=== PATIENT | male | born 1940 | race Caucasian/White ===

== ENCOUNTER 2016-08-20 19:11 | Inpatient (IN) | payer MEDICARE, OTHER ==
[~2016-08-20] VITALS: Ht 152.4 cm; Wt 81.6 kg
[~2016-08-20 19:11] MED LIST: AMIO200T; AMIO200T2 PO; ASPI-807 PO; ATOR20TA PO; AZIT250T6; BUDE10.2; DIVA250T4 PO; DIVA500T2 PO; DOCU-270 PO; DUTA0.5C PO; GABA-534 PO; HYDR-548 PO; LAMO25TA PO; LORA10CA; LORA1TAB PO; LORA1TAB82; LOSA50TA3; METO25TA6 PO; MOME17SP; MOME17SP NS; MORP60TA34 PO; MUPI22OI7; PANT40SU; QUET50TA PO; RIVA10TA; SPIR25TA4 PO; TAMS-12; TAMS0.4C34 PO; TOLT4CAP PO
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
--- NOTE | 2016-08-20 19:38 | NUR ---
STARTED A SALINE LOCK G20 ON THE RIGHT HAND, BLOOD DRAWN AND SENT TO LAB.
[2016-08-20 19:56] LABS: BASOPHILS # (AUTO) 0.4 /CMM (0.0-0.2); BASOPHILS % (AUTO) 2.8 % (0.0-2.0); EOSINOPHILS # (AUTO) 0.2 /CMM (0.0-0.7); EOSINOPHILS % (AUTO) 1.8 % (0.0-6.0); HEMATOCRIT 42 % (39-51); HEMOGLOBIN 14.2 g/dL (13.5-17.5); LYMPHOCYTES # (AUTO) 1.9 /CMM (0.8-4.8); MEAN CORPUSCULAR HEMOGLOBIN 33 PG (26.0-33.0); MEAN CORPUSCULAR HGB CONC 34 g/dl (31.0-36.0); MEAN CORPUSCULAR VOLUME 98 fL (80-96); MONOCYTES # (AUTO) 1.7 /CMM (0.1-1.30); MONOCYTES % (AUTO) 12.3 % (2.0-12.0); NEUTROPHILS # (AUTO) 9.7 /CMM (1.8-8.9); NEUTROPHILS % (AUTO) 69.1 % (43.0-81.0); PLATELET COUNT (AUTO) 257 /CMM (150-450); RDW COEFFICIENT OF VARIATION 12.8 (11.5-15.0); RED BLOOD CELL COUNT(AUTO) 4.29 MIL/uL (4.5-6.0); WHITE BLOOD COUNT (AUTO) 13.9 K/uL (4.3-11.0)
--- NOTE | 2016-08-20 19:57 | NUR ---
CALLED NURSING SUP. FOR TELE BED
[2016-08-20 20:07] LABS: CALCIUM, SERUM 9.5 mg/dL (8.5-10.1); CARBON DIOXIDE 25 mmol/L (21-32); CHLORIDE 104 mmol/L (98-107); CREATININE 1.4 mg/dL (0.6-1.3); GLUCOSE 85 mg/dL (74-106); POTASSIUM 4.7 mmol/L (3.5-5.1); SODIUM SERUM 137 mmol/L (136-145); UREA NITROGEN, BLOOD 23 mg/dL (7-18)
[2016-08-20 20:16] LABS: TROPONIN I < 0.017 ng/mL (0.00-0.056)
[2016-08-20 20:28] LABS: INR 1.08 (0.87-1.13); PROTHROMBIN TIME 11.6 SECS (9.5-12.7)
--- NOTE | 2016-08-20 21:15 | NUR ---
EPIC PAGED, BRANCH LENDING OFFICER
--- NOTE | 2016-08-20 21:41 | NUR ---
Report given to Elizabeth WISDOM for tele admission and continuity of care.
[2016-08-20] MEDS ORDERED: IV NS 0.9% 1,000 ML IV PRN (22:09)
[2016-08-20 22:15] VITALS: BP 199/109
--- NOTE | 2016-08-20 22:15 | NUR ---
RN NOTES: ADMITTED FROM ER VIA GURNEY ACCOMPANIED BY RN WITH DX:CHEST PAIN,PATIENT IS ALERT AND COHERENT WITH PERIODS OF FORGETFULNESS,PER ENDORSEMENT HE RECEIVED 3 DOSE OF NITROGLYCERINE PER PARAMEDICS WHO TRANSPORTED HIM TO THE HOSPITAL FROM [facility],WHEN HE ARRIVED IN ER HE WAS RELIEVED WITH CHEST PAIN, TROPONIN WAS NEGATIVE,IV CANNULA IN SITE RIGHT HAND G#20,ON TELEMETRY, FINANCE ASSISTANT IN PLACE, SINUS RHYTHM RATE-75,BODY ASSESSMENT DONE,NOTED MULTIPLE BROWN PIGMENTATION AND DISCOLORATION ON BUE AND BLE, HE HAS OLD SURGICAL SCAR ON THE LEFT FEMORAL AREA,UNABLE TO ASSESS BUTTOCKS AND FRONTAL AREA HE REFUSE TO LOWER DOWN HIS PANTS.ORIENTED TO UNIT AND STAFF,FALL, AFETY AND ASPIRATION PRECAUTION OBSERVE, CALL LIGHT WITH IN REACH.BED LOW AND LOCKED, SIDE RAILS UP X3.
--- NOTE | 2016-08-20 22:22 | NUR ---
Transported to [place] [id number] [facility] bed under als protocol, no incident noted. Bita at bedside.
[2016-08-20 22:30] VITALS: BP 199/109
[2016-08-20] MEDS ORDERED: hydrALAZINE HCL 25 MG TABLET PO PRN (22:30)
[2016-08-20] MEDS ORDERED: ACETAMINOPHEN 325 MG TABLET PO PRN (22:30)
[2016-08-20] MEDS ORDERED: MAGNESIUM HYDROXIDE 30 ML UDC PO PRN (22:30)
[2016-08-20] MEDS ORDERED: Z GUARD REMEDY 2 OZ OINT TP PRN (22:30)
[2016-08-20] MEDS ORDERED: LORAZEPAM 1 MG TABLET PO PRN (22:30)
[2016-08-20] MEDS ORDERED: ONDANSETRON HCL/PF 4 MG/2 ML VIAL IVP PRN (22:30)
[2016-08-20] MEDS ORDERED: MAG HYDROX/AL HYDROX/SIMETH 30 ML UDC PO PRN (22:30)
--- NOTE | 2016-08-20 22:50 | NUR ---
RN NOTES: PATIENT IS ON O2 AT 2L/MIN SPO2-97%, HE COMPLAINED OF LOCALIZED CHEST PAIN, NOT RADIATING TO ANY PARTS OF THE BODY, 10/10, HE IS GRIMACING AND LOOKS VERY RESTLESS, NO SOB BUT HE COMPLAINED OF PRICKING LIKE PAIN,BP-199/109 KS-79, PRN MEDICATION FOR BLOOD PRESSURE GIVEN AT 2256 AND PRN FOR PAIN WAS GIVEN 2305.KEPT IN COMFORTABLE POSITION,RE-ASSURED AND NON PHARMACOLOGIC INTERVENTION RENDERED, DEEP BREATHING, DIM LIGHT AND SUGGEST TO HIM RELAX,PROVIDED URINAL IN THE BED SIDE(URINEX1),VERY COOPERATIVE,CALL LIGHT WITH IN REACH.
[2016-08-20] MEDS ORDERED: MORPHINE SULFATE INJ 2 MG/ML DISP.SYRIN ONE (22:51)
[2016-08-20] MEDS ORDERED: IV SET PRIMARY 1 EA INFUS.SET MC ONE ×2 (22:58→23:06)
[2016-08-20] MEDS: MORPHINE SULFATE INJ 2 MG/ML DISP.SYRIN IV PRN (23:05)
--- NOTE | 2016-08-20 23:10 | NUR ---
RN NOTES: 2305 IVF OF NS AT 75 ML/HR STARTED VIA INFUSION PUMP.
--- NOTE | 2016-08-20 23:40 | NUR ---
RN NOTES: AFTER MORPHINE INJECTION PATIENT VERBALIZED HE FEELS BETTER AND PAIN WAS LESSEN 3/10,HE LOOKS MORE RELAX,TAKING A NAP,KEEP ON COMFORTABLE POSITION, NON PHARMACOLOGICAL INTERVENTION RENDERED.
[2016-08-21] VITALS: BP 155/78
--- NOTE | 2016-08-21 | NUR ---
RN NOTES: PATIENT WAS ABLE TO REST AND SLEEP, PAIN SUBSIDE, V/S CHECKED BP-155/78 NH-63.WILL CONTINUE TO MONITOR ON CLOSE VISUAL CHECK, CALL LIGHT WITH IN REACH.
[2016-08-21] MEDS ORDERED: hydrALAZINE HCL 25 MG TABLET PO PRN (01:00)
[2016-08-21 04:00] VITALS: BP 144/67
[2016-08-21] MEDS ORDERED: HYDROCODONE/APAP 5/325MG 1 EACH TABLET ONE (04:30)
[2016-08-21] MEDS: HYDROCODONE/APAP 5/325MG 1 EACH TABLET PO PRN (04:35)
[2016-08-21 04:37] LABS: EOSINOPHILS # (AUTO) 0.2 /CMM (0.0-0.7); EOSINOPHILS % (AUTO) 1.7 % (0.0-6.0); HEMATOCRIT 39 % (39-51); HEMOGLOBIN 12.9 g/dL (13.5-17.5); LYMPHOCYTES # (AUTO) 1.4 /CMM (0.8-4.8); LYMPHOCYTES % (AUTO) 9.7 % (20.0-44.0); MEAN CORPUSCULAR HEMOGLOBIN 33 PG (26.0-33.0); MEAN CORPUSCULAR HGB CONC 33 g/dl (31.0-36.0); MEAN CORPUSCULAR VOLUME 98 fL (80-96); MONOCYTES # (AUTO) 2.2 /CMM (0.1-1.30); MONOCYTES % (AUTO) 15.9 % (2.0-12.0); NEUTROPHILS # (AUTO) 10.2 /CMM (1.8-8.9); NEUTROPHILS % (AUTO) 72.7 % (43.0-81.0); PLATELET COUNT (AUTO) 223 /CMM (150-450); RDW COEFFICIENT OF VARIATION 13.8 (11.5-15.0); RED BLOOD CELL COUNT(AUTO) 3.99 MIL/uL (4.5-6.0)
--- NOTE | 2016-08-21 04:40 | NUR ---
RN NOTES: AWAKE, ASSISTED HE USE THE URINAL, COMPLAINED OF BACK PAIN 11/21, HE VERBALIZED HE HAS INTERMITTENT BACK PAIN,BP-144/67 ME-57 RR-18 T-97.6 SPO2-94%,AGREED TO HAVE NORCO PRN FOR PAIN,GIVEN.CALL LIGHT WITH IN REACH.PUT COMFORTABLE IN BED. Addendum: 08/21/16 at 6508 by SUHAS MAY RN NORCO GIVEN AT 0435AM.
[2016-08-21 04:44] LABS: CALCIUM, SERUM 8.7 mg/dL (8.5-10.1); CREATININE 1.3 mg/dL (0.6-1.3); MAGNESIUM 1.9 mg/dL (1.8-2.4); PHOSPHORUS 3.4 mg/dL (2.5-4.9); POTASSIUM 4.5 mmol/L (3.5-5.1)
[2016-08-21 05:47] LABS: EOSINOPHILS % (MANUAL) 4 % (0-4); LYMPHOCYTES % (MANUAL) 13 % (16-48); MONOCYTES % (MANUAL) 16 % (0-11.0); NEUTROPHILS % (MANUAL) 67 (42-76)
[2016-08-21 05:48] LABS: PLATELET ESTIMATE ADEQUATE
--- NOTE | 2016-08-21 06:16 | NUR ---
RN NOTES: 535AM PATIENT WAS IN DEEP SLEEP, NO CALLS MADE AFTER HE RECEIVED NORCO,BLOOD RESULT IN,CALLED EPIC DOUGH RAISER AT 0538, THEN LEFT MESSAGE AT 555AM.AWAITING FOR RETURN CALL.ON CLOSE MONITORING.CALL LIGHT WITHIN EASY REACH.
--- NOTE | 2016-08-21 06:40 | NUR ---
RN NOTES: CALLS AND NEEDS ATTENDED, NOT IN PAIN OR ANY SIGN OF RESPIRATORY DISTRESS,BED LOW AND LOCKED, CALL LIGHT WITHIN REACH.ENDORSED ASLEEP TO MORNING SHIFT FOR CONTINUITY OF CARE.
--- NOTE | 2016-08-21 07:30 | NUR ---
RN OPENING NOTES TELE RECEIVED REPORT FROM BLOCK CHOPPER HAND NURSE. PATIENT IS IN BED. BED IN LOW POSITION, LOCKED AND 2 SIDE RAILS ARE UP. NO SIGNS OR SYMPTOMS OF DISTRESS. IV SITE IS INTACT AND POTENT. WILL CONTINUE TO MONITOR AND ASSESS PATIENT THROUGHOUT MY SHIFT.
[2016-08-21 08:00] VITALS: BP 144/72
[2016-08-21 09:05] LABS: THYROID STIMULATING HORMONE 0.875 uIU/mL (0.358-3.74)
[2016-08-21] MEDS ORDERED: ALBUTEROL FS 2.5 MG/3 ML VIAL.NEB NEB PRN (10:00)
[2016-08-21] MEDS: MORPHINE SULFATE INJ 2 MG/ML DISP.SYRIN IV PRN ×2 (10:54→17:30)
[2016-08-21] MEDS: DIVALPROEX SODIUM 250 MG TABLET.DR PO SCH ×3 (10:58→17:23)
[2016-08-21] MEDS: LOSARTAN POTASSIUM 50 MG TABLET PO SCH (10:58)
[2016-08-21] MEDS: GABAPENTIN 300 MG CAPSULE PO SCH ×2 (10:58→17:22)
[2016-08-21] MEDS: DOCUSATE SODIUM 100 MG CAPSULE PO SCH ×2 (10:59→17:23)
[2016-08-21] MEDS: METOPROLOL TARTRATE 25 MG TABLET PO SCH ×2 (11:00→17:23)
[2016-08-21] MEDS: PANTOPRAZOLE 40 MG TABLET.DR PO SCH (11:00)
[2016-08-21] MEDS: AMIODARONE HCL 200 MG TABLET PO SCH (11:00)
[2016-08-21] MEDS: methylPREDNISolone SOD SUCC 125 MG/2ML VIAL IV SCH ×4 (11:01→20:40)
[2016-08-21] MEDS: RIVAROXABAN 10 MG TABLET PO SCH (11:05)
[2016-08-21] MEDS: LamoTRIgine 25 MG TABLET PO SCH ×2 (11:29→17:23)
[2016-08-21] MEDS: MORPHINE SULFATE SR 15 MG TABLET.SA PO SCH ×2 (11:29→20:40)
[2016-08-21] MEDS: MOMETASONE FUROATE NASAL SUSP 17 GM BOTTLE SCH (13:23)
[2016-08-21] MEDS: ALBUTEROL FS 2.5 MG/3 ML VIAL.NEB NEB SCH ×2 (15:30→23:18)
[2016-08-21 16:00] VITALS: BP 166/82
--- NOTE | 2016-08-21 17:34 | NUR ---
RN NOTES MORPHINE ADMINISTERED BLOOD PRESSURE 166/82
--- NOTE | 2016-08-21 18:49 | NUR ---
RN CLOSING NOTES PATIENT IS IN BED, ALERT AND ORIENTED TO NAME, PLACE. BED IN LOW POSITION, LOCKED AND TWO SIDE RAILS ARE UP. NO SIGNS OR SYMPTOMS OF DISTRESS. PATIENT'S PAIN LEVEL WAS CONTROLLED WITH MORPHINE AND NORCO. IV SITE IS POTENT AND INTACT. WILL ENDORSE TO CHARGEBACK ANALYST NURSE.
--- NOTE | 2016-08-21 19:55 | NUR ---
LASTEX THREAD WINDER INITIAL NOTES: RECEIVED REPORT FROM ANDRE WISDOM. PT ON BED, AWAKE, A/O X1-2, DIRECTIONAL, COOPERATIVE CALM AT THIS TIME. ON 2L VIA NC, RESPIRATION EVEN AND UNLABORED. PT C/O 4/10 PAIN GENERALIZED. PT EASILY GETS AGITATED WHEN HE CANNOT FIND HIS URINAL OR OXYGEN NOT IN USE. PT ON TELE CURRENTLY SINUS IRVING WITH BBB INVERTED T WAVE HR 58, PER PIPE MAKER DURING DAY SHIFT IT WENT DOWN TO LOW 30'S. PT ALSO REFUSING SCD. EDUCATION PROVIDED TO THE PT. RIGHT HAND G 20 PATENT AND FLUSHING WELL, ON HL. SAFETY PRECAUTIONS FOR FALL INITIATED CALL LIGHT IN REACH. WILL CONTINUE TO MONITOR
[2016-08-21 20:00] VITALS: BP 159/84
--- NOTE | 2016-08-21 21:00 | NUR ---
television and radio repairer notes: pt refused sacral check, stated he doesnt have any wound on his bottom and private area. educate pt regarding importance of skin assessment, pt refused.
[2016-08-21] MEDS: TAMSULOSIN 0.4 MG CAP.SR.24H PO SCH (21:14)
[2016-08-21] MEDS: TOLTERODINE 2 MG CAP.SR PO SCH (21:15)
[2016-08-21] MEDS: QUETIAPINE FUMARATE 25 MG TABLET PO SCH (21:15)
[2016-08-21] MEDS: ATORVASTATIN 10 MG TABLET PO SCH (21:15)
[2016-08-21] MEDS: DUTASTERIDE (0.5 MG) 0.5 MG CAPSULE PO SCH (21:15)
[2016-08-22] VITALS (8 sets, daily range): BP systolic 95–193; BP diastolic 44–88
--- NOTE | 2016-08-22 01:37 | NUR ---
telemedicine physician notes: seen pt sleeping at this time, appears comfortable, no distress noted,
[2016-08-22] MEDS: MORPHINE SULFATE INJ 2 MG/ML DISP.SYRIN IV PRN ×3 (02:18→12:17)
--- NOTE | 2016-08-22 02:18 | NUR ---
television station manager notes: pt c/o back pain 12/22 requesting for his morphine, prn morphine 2mg ivp administered to the pt at this time, educate pt regarding medication side effect, will continue to monitor and reassess
--- NOTE | 2016-08-22 04:00 | NUR ---
telecommunications administrator notes: pt refused 0400am vs, education provided to the pt
--- NOTE | 2016-08-22 04:03 | NUR ---
network/telecom engineer notes: seen pt sleeping, not in any distress, appears comfortable
--- NOTE | 2016-08-22 06:45 | NUR ---
television antenna installer closing notes: pt on bed, sleeping, arouses to tactile stimuli, remains on 2l via nc, no sob noted. denies any chest pain or discomfort at this time. remains on sinus erum with bbb and inverted T wave hr 57, per data communications technician lowest 45. right hand iv access remains patent and flushing well, on hl. vs remains stable, needs attended. safety precaution for fall remains engaged, call light in reach. will endorse to day rn for flavia.
[2016-08-22 06:48] LABS: HEMATOCRIT 42 % (39-51); HEMOGLOBIN 13.9 g/dL (13.5-17.5); LYMPHOCYTES # (AUTO) 0.8 /CMM (0.8-4.8); LYMPHOCYTES % (AUTO) 3.8 % (20.0-44.0); MEAN CORPUSCULAR HEMOGLOBIN 33 PG (26.0-33.0); MEAN CORPUSCULAR HGB CONC 33 g/dl (31.0-36.0); MEAN CORPUSCULAR VOLUME 99 fL (80-96); MONOCYTES # (AUTO) 0.6 /CMM (0.1-1.30); MONOCYTES % (AUTO) 2.9 % (2.0-12.0); NEUTROPHILS # (AUTO) 20.7 /CMM (1.8-8.9); NEUTROPHILS % (AUTO) 93.3 % (43.0-81.0); PLATELET COUNT (AUTO) 233 /CMM (150-450); RDW COEFFICIENT OF VARIATION 14.1 (11.5-15.0); RED BLOOD CELL COUNT(AUTO) 4.19 MIL/uL (4.5-6.0); WHITE BLOOD COUNT (AUTO) 22.2 K/uL (4.3-11.0)
[2016-08-22 07:14] LABS: ALBUMIN 3.1 g/dL (3.4-5.0); BILIRUBIN,TOTAL 0.4 mg/dL (0.2-1.0); CALCIUM, SERUM 9.5 mg/dL (8.5-10.1); CREATININE 1.2 mg/dL (0.6-1.3); PHOSPHORUS 3.5 mg/dL (2.5-4.9); POTASSIUM 4.3 mmol/L (3.5-5.1); TOTAL PROTEIN, SERUM 6.6 g/dL (6.4-8.2)
--- NOTE | 2016-08-22 07:38 | NUR ---
FINANCIAL HEALTH COUNSELOR NOTES Patient in bed, sleeping but easily arousable, no distress noted, no s/sx of pain or discomfort at this time, breathing even and unlabored, no sob, safety measures in placed, needs anticipated and met, call light within reach, will continue to monitor.
[2016-08-22] MEDS: METOPROLOL TARTRATE 25 MG TABLET PO SCH ×2 (08:10→16:34)
[2016-08-22] MEDS: AMIODARONE HCL 200 MG TABLET PO SCH (08:11)
[2016-08-22] MEDS: LOSARTAN POTASSIUM 50 MG TABLET PO SCH (08:13)
[2016-08-22] MEDS: methylPREDNISolone SOD SUCC 125 MG/2ML VIAL IV SCH ×4 (08:14→20:57)
[2016-08-22] MEDS: DOCUSATE SODIUM 100 MG CAPSULE PO SCH ×2 (08:15→16:33)
[2016-08-22] MEDS: PANTOPRAZOLE 40 MG TABLET.DR PO SCH (08:15)
[2016-08-22] MEDS: LamoTRIgine 25 MG TABLET PO SCH ×2 (08:15→16:35)
[2016-08-22] MEDS: MORPHINE SULFATE SR 15 MG TABLET.SA PO SCH ×2 (08:15→20:58)
[2016-08-22] MEDS: DIVALPROEX SODIUM 250 MG TABLET.DR PO SCH ×3 (08:15→16:35)
[2016-08-22] MEDS: GABAPENTIN 300 MG CAPSULE PO SCH ×2 (08:15→16:34)
[2016-08-22 08:17] LABS: TROPONIN I 0.122 ng/mL (0.00-0.056)
[2016-08-22] MEDS: ALBUTEROL FS 2.5 MG/3 ML VIAL.NEB NEB SCH ×2 (08:22→16:20)
[2016-08-22] MEDS: RIVAROXABAN 10 MG TABLET PO SCH (08:22)
--- NOTE | 2016-08-22 08:34 | NUR ---
SOCIAL WELFARE RESEARCH WORKER NOTES Patient complained of chest pain p.s. 02/21 radiates to left arm, described as sharp deep pain, at 0805, bp 193/88 pulse 102 spo2 100% respiration 22, all due meds given as ordered, morphine iv administered. RT came and administered breathing treatment, rechecked bp now at 149/107, pulse 97, spo2 93%. Dr. Bowman came and assessed the patient and received new order for EKG STAT. order noted and carried out. Patient stated pain feels a little bit better, will continue to monitor.
--- NOTE | 2016-08-22 08:40 | NUR ---
EKG REPORTED TO NURSE(GENTRY) AT THIS TIME.
--- NOTE | 2016-08-22 08:43 | NUR ---
SLOT MACHINE DEPARTMENT FLOORPERSON NOTES Dr. Mc reviewed EKG result, compared from previous EKG, no new order at this time.
[2016-08-22] MEDS: MOMETASONE FUROATE NASAL SUSP 17 GM BOTTLE SCH (08:52)
[2016-08-22] MEDS ORDERED: ASPIRIN 81 MG TAB.CHEW PO SCH (09:00)
--- NOTE | 2016-08-22 09:50 | NUR ---
RN MS NOTES Patient seen and examined by Dr. Mc with new orders. Orders noted and carried out. Reassessed patient's pain 2/10, blood pressure 150/75. No further complaint of chest pain at this time, will continue to monitor.
[2016-08-22] MEDS: hydrALAZINE HCL 50 MG TABLET PO SCH ×3 (10:29→16:33)
[2016-08-22] MEDS: ISOSORBIDE DINITRATE (20MG) 20 MG TABLET PO SCH ×2 (10:29→16:34)
[2016-08-22] MEDS ORDERED: NITROGLYCERIN PACKET 1 GM PACKET TOP SCH (12:00)
[2016-08-22] MEDS: NITROGLYCERIN 30 GM TUBE TP SCH ×3 (12:00→23:47)
--- NOTE | 2016-08-22 14:35 | NUR ---
RN MS NOTES Patient seen by Dr. Samuel, vital signs stable, no further complaint of chest pain, assessed by MD and stated he he has pain on his legs and back mostly. Received new orders from Dr. Samuel, order noted and carried out.
--- NOTE | 2016-08-22 19:01 | NUR ---
RN MS NOTES Patient in bed, alert and oriented, no distress noted, no further complaint of chest pain, vital signs stable, safety measures in placed, call light withinr each, will endorse to film processing shift supervisor for flavia.
[2016-08-22] MEDS: DUTASTERIDE (0.5 MG) 0.5 MG CAPSULE PO SCH (20:58)
[2016-08-22] MEDS: TAMSULOSIN 0.4 MG CAP.SR.24H PO SCH (20:58)
[2016-08-22] MEDS: TOLTERODINE 2 MG CAP.SR PO SCH (20:58)
[2016-08-22] MEDS: QUETIAPINE FUMARATE 25 MG TABLET PO SCH (20:59)
[2016-08-22] MEDS: ATORVASTATIN 10 MG TABLET PO SCH (21:00)
[2016-08-23] MEDS: ALBUTEROL FS 2.5 MG/3 ML VIAL.NEB NEB SCH ×4 (00:08→23:29)
[2016-08-23] MEDS: PANTOPRAZOLE 40 MG TABLET.DR PO SCH (06:17)
[2016-08-23] MEDS: NITROGLYCERIN 30 GM TUBE TP SCH (06:19)
--- NOTE | 2016-08-23 07:10 | NUR ---
MS RN INITIAL NOTES REPORT RECEIVED AT THE BEDSIDE. PATIENT IS SLEEPING. NO SOB OR DISTRESS NOTED AT THIS TIME. PATIENT DOES NOT APPEAR TO BE IN PAIN, NO FACIAL GRIMACE NOTED. BED IN A LOW POSITION, CALL LIGHT WITHIN PATIENT REACH. WILL CONTINUE TO MONITOR.
[2016-08-23 07:48] LABS: HEMATOCRIT 38 % (39-51); HEMOGLOBIN 12.8 g/dL (13.5-17.5); LYMPHOCYTES # (AUTO) 0.5 /CMM (0.8-4.8); MEAN CORPUSCULAR HEMOGLOBIN 33 PG (26.0-33.0); MEAN CORPUSCULAR HGB CONC 34 g/dl (31.0-36.0); MEAN CORPUSCULAR VOLUME 99 fL (80-96); MONOCYTES # (AUTO) 1.4 /CMM (0.1-1.30); MONOCYTES % (AUTO) 5.5 % (2.0-12.0); NEUTROPHILS # (AUTO) 23.2 /CMM (1.8-8.9); NEUTROPHILS % (AUTO) 92.5 % (43.0-81.0); PLATELET COUNT (AUTO) 233 /CMM (150-450); RDW COEFFICIENT OF VARIATION 13.9 (11.5-15.0); RED BLOOD CELL COUNT(AUTO) 3.84 MIL/uL (4.5-6.0); WHITE BLOOD COUNT (AUTO) 25.1 K/uL (4.3-11.0)
[2016-08-23 07:55] LABS: TROPONIN I 0.211 ng/mL (0.00-0.056)
[2016-08-23 07:56] LABS: ALBUMIN 2.9 g/dL (3.4-5.0); BILIRUBIN,TOTAL 0.4 mg/dL (0.2-1.0); CALCIUM, SERUM 9.2 mg/dL (8.5-10.1); CREATININE 1.7 mg/dL (0.6-1.3); MAGNESIUM 2.4 mg/dL (1.8-2.4); PHOSPHORUS 4.3 mg/dL (2.5-4.9); POTASSIUM 4.4 mmol/L (3.5-5.1); TOTAL PROTEIN, SERUM 6.1 g/dL (6.4-8.2)
[2016-08-23 08:00] VITALS: BP 110/73
[2016-08-23] MEDS: MOMETASONE FUROATE NASAL SUSP 17 GM BOTTLE SCH (08:12)
[2016-08-23] MEDS: DOCUSATE SODIUM 100 MG CAPSULE PO SCH ×2 (08:12→16:38)
[2016-08-23] MEDS: methylPREDNISolone SOD SUCC 125 MG/2ML VIAL IV SCH ×2 (08:12→21:14)
[2016-08-23] MEDS: DIVALPROEX SODIUM 250 MG TABLET.DR PO SCH ×3 (08:12→16:38)
[2016-08-23] MEDS: MORPHINE SULFATE SR 15 MG TABLET.SA PO SCH ×2 (08:13→21:14)
[2016-08-23] MEDS: ISOSORBIDE DINITRATE (20MG) 20 MG TABLET PO SCH ×2 (08:14→16:39)
[2016-08-23] MEDS: RIVAROXABAN 10 MG TABLET PO SCH (08:15)
[2016-08-23] MEDS: METOPROLOL TARTRATE 25 MG TABLET PO SCH ×2 (08:15→16:39)
[2016-08-23] MEDS: AMIODARONE HCL 200 MG TABLET PO SCH (08:15)
[2016-08-23] MEDS: GABAPENTIN 300 MG CAPSULE PO SCH ×3 (08:15→16:38)
[2016-08-23] MEDS: hydrALAZINE HCL 50 MG TABLET PO SCH ×3 (08:15→16:38)
[2016-08-23] MEDS: LamoTRIgine 25 MG TABLET PO SCH ×2 (08:15→16:38)
[2016-08-23 16:00] VITALS: BP 113/57
--- NOTE | 2016-08-23 18:45 | NUR ---
MS RN CLOSING NOTES NO SIGNIFICANT CHANGES IN PATIENT CONDITION THROUGHOUT THE SHIFT. NO SOB OR DISTRESS NOTED AT THIS TIME. PATIENT DENIES PAIN. BED IN A LOW POSITION, CALL LIGHT WITHIN PATIENT REACH. WILL ENDORSE FOR LAURO.
[2016-08-23 20:00] VITALS: BP 107/54
[2016-08-23] MEDS: TOLTERODINE 2 MG CAP.SR PO SCH (21:13)
[2016-08-23] MEDS: DUTASTERIDE (0.5 MG) 0.5 MG CAPSULE PO SCH (21:13)
[2016-08-23] MEDS: ATORVASTATIN 10 MG TABLET PO SCH (21:13)
[2016-08-23] MEDS: QUETIAPINE FUMARATE 25 MG TABLET PO SCH (21:13)
[2016-08-23] MEDS: TAMSULOSIN 0.4 MG CAP.SR.24H PO SCH (21:14)
[2016-08-23] MEDS: ZOLPIDEM TARTRATE 5 MG TABLET PO PRN (23:38)
[2016-08-24] VITALS: BP 146/70
[2016-08-24 04:00] VITALS: BP 130/78
[2016-08-24] MEDS: HYDROCODONE/APAP 5/325MG 1 EACH TABLET PO PRN ×3 (04:54→14:06)
[2016-08-24 06:46] LABS: HEMATOCRIT 40 % (39-51); HEMOGLOBIN 13.2 g/dL (13.5-17.5); LYMPHOCYTES # (AUTO) 0.5 /CMM (0.8-4.8); LYMPHOCYTES % (AUTO) 1.9 % (20.0-44.0); MEAN CORPUSCULAR HEMOGLOBIN 33 PG (26.0-33.0); MEAN CORPUSCULAR HGB CONC 33 g/dl (31.0-36.0); MEAN CORPUSCULAR VOLUME 99 fL (80-96); MONOCYTES # (AUTO) 1.4 /CMM (0.1-1.30); MONOCYTES % (AUTO) 5.6 % (2.0-12.0); NEUTROPHILS # (AUTO) 23.2 /CMM (1.8-8.9); NEUTROPHILS % (AUTO) 92.5 % (43.0-81.0); PLATELET COUNT (AUTO) 237 /CMM (150-450); RDW COEFFICIENT OF VARIATION 14.5 (11.5-15.0); RED BLOOD CELL COUNT(AUTO) 4.03 MIL/uL (4.5-6.0); WHITE BLOOD COUNT (AUTO) 25.1 K/uL (4.3-11.0)
[2016-08-24] MEDS: MORPHINE SULFATE INJ 2 MG/ML DISP.SYRIN IV PRN (06:52)
[2016-08-24 06:56] VITALS: BP 160/81
--- NOTE | 2016-08-24 06:57 | NUR ---
pt woke up this morning complaining of sternal pain, medicated with norco with slight relief but still in pain slept for few minutes and woke up again pain still the same, bp 160/81 hr 60 spo2 96% medicated with morphine and pt feels good relief already.will continue to monitor spo2 96% no changed.
[2016-08-24 07:05] LABS: TROPONIN I 0.084 ng/mL (0.00-0.056)
[2016-08-24 07:19] LABS: ALBUMIN 3.1 g/dL (3.4-5.0); BILIRUBIN,TOTAL 0.4 mg/dL (0.2-1.0); CREATININE 1.7 mg/dL (0.6-1.3); MAGNESIUM 2.5 mg/dL (1.8-2.4); PHOSPHORUS 4.3 mg/dL (2.5-4.9); POTASSIUM 4.3 mmol/L (3.5-5.1); TOTAL PROTEIN, SERUM 6.5 g/dL (6.4-8.2)
--- NOTE | 2016-08-24 07:55 | NUR ---
MS RN RECEIVED ON BED, AWAKE, ALERT,ORIENTED X4,NOT IN ANY FORM OF DISTRESS, RESPIRATIONS EVEN AND UNLABORED,NO SOB NOTED, LUNGS ARE CLEAR,ABDOMEN SOFT,POSITIVE BOWEL SOUNDS, DENIES PAIN AT THIS TIME, WILL MONITOR PATIENT'S CONDITION.
[2016-08-24 08:00] VITALS: BP 141/80
[2016-08-24] MEDS ORDERED: REGADENOSON 0.4 MG/5 ML DISP.SYRIN IVP ONE (08:00)
[2016-08-24] MEDS: methylPREDNISolone SOD SUCC 125 MG/2ML VIAL IV SCH (08:03)
[2016-08-24] MEDS: MORPHINE SULFATE SR 15 MG TABLET.SA PO SCH ×2 (08:04→21:02)
--- NOTE | 2016-08-24 08:20 | NUR ---
MS RN NPO AT THIS TIME WILL BE HAVING STRESS TEST TODAY, MEDS HELD AT THIS TIME.
--- NOTE | 2016-08-24 08:30 | NUR ---
MS RN WENT DOWN FOR STRESS TEST,ALL NEEDS ATTENDED.
[2016-08-24] MEDS: ISOSORBIDE DINITRATE (20MG) 20 MG TABLET PO SCH ×4 (09:00→16:59)
[2016-08-24] MEDS: ALBUTEROL FS 2.5 MG/3 ML VIAL.NEB NEB SCH ×3 (09:26→23:16)
[2016-08-24] MEDS: METOPROLOL TARTRATE 25 MG TABLET PO SCH ×2 (09:32→16:59)
[2016-08-24] MEDS: DIVALPROEX SODIUM 250 MG TABLET.DR PO SCH ×3 (09:32→17:05)
[2016-08-24] MEDS: DOCUSATE SODIUM 100 MG CAPSULE PO SCH ×2 (09:32→17:05)
[2016-08-24] MEDS: PANTOPRAZOLE 40 MG TABLET.DR PO SCH (09:32)
[2016-08-24] MEDS: hydrALAZINE HCL 50 MG TABLET PO SCH ×3 (09:33→16:58)
[2016-08-24] MEDS: AMIODARONE HCL 200 MG TABLET PO SCH (09:33)
[2016-08-24] MEDS: LamoTRIgine 25 MG TABLET PO SCH ×2 (09:33→17:05)
[2016-08-24] MEDS: GABAPENTIN 300 MG CAPSULE PO SCH ×3 (09:33→17:05)
[2016-08-24] MEDS: RIVAROXABAN 10 MG TABLET PO SCH (09:34)
[2016-08-24] MEDS: MOMETASONE FUROATE NASAL SUSP 17 GM BOTTLE SCH (09:51)
[2016-08-24 10:45] LABS: BAND % (MANUAL) 2 % (0.0-5.0); LYMPHOCYTES % (MANUAL) 2 % (16-48); NEUTROPHILS % (MANUAL) 92 (42-76); REACTIVE LYMPHOCYTES 4 % (0-0)
[2016-08-24 10:46] LABS: PLATELET ESTIMATE ADEQUATE
--- NOTE | 2016-08-24 11:00 | NUR ---
MS RN CAME BACK, DUE MEDS GIVEN,TOLERATED WELL.
[2016-08-24 16:00] VITALS: BP 141/80
--- NOTE | 2016-08-24 17:00 | NUR ---
MS RN HELD B/P MEDS DUE TO LOW B/P.
--- NOTE | 2016-08-24 17:34 | NUR ---
MS RN ON BED, EATING DINNER,NO DISTRESS NOTED.
[2016-08-24 20:00] VITALS: BP 128/61
[2016-08-24] MEDS: methylPREDNISolone SOD SUCC 40 MG/ML VIAL IV SCH (21:01)
[2016-08-24] MEDS: TOLTERODINE 2 MG CAP.SR PO SCH (21:02)
[2016-08-24] MEDS: TAMSULOSIN 0.4 MG CAP.SR.24H PO SCH (21:03)
[2016-08-24] MEDS: ATORVASTATIN 10 MG TABLET PO SCH (21:03)
[2016-08-24] MEDS: DUTASTERIDE (0.5 MG) 0.5 MG CAPSULE PO SCH (21:04)
[2016-08-24] MEDS: QUETIAPINE FUMARATE 25 MG TABLET PO SCH (21:05)
[2016-08-24] MEDS: ZOLPIDEM TARTRATE 5 MG TABLET PO PRN (23:40)
[2016-08-25] MEDS: HYDROCODONE/APAP 5/325MG 1 EACH TABLET PO PRN (00:44)
[2016-08-25] MEDS: MORPHINE SULFATE INJ 2 MG/ML DISP.SYRIN IV PRN ×2 (03:19→14:52)
[2016-08-25 06:42] LABS: HEMATOCRIT 39 % (39-51); HEMOGLOBIN 13.1 g/dL (13.5-17.5); LYMPHOCYTES # (AUTO) 0.5 /CMM (0.8-4.8); LYMPHOCYTES % (AUTO) 2.5 % (20.0-44.0); MEAN CORPUSCULAR HEMOGLOBIN 33 PG (26.0-33.0); MEAN CORPUSCULAR HGB CONC 34 g/dl (31.0-36.0); MEAN CORPUSCULAR VOLUME 98 fL (80-96); MONOCYTES # (AUTO) 1.9 /CMM (0.1-1.30); MONOCYTES % (AUTO) 9.8 % (2.0-12.0); NEUTROPHILS # (AUTO) 17.4 /CMM (1.8-8.9); NEUTROPHILS % (AUTO) 87.7 % (43.0-81.0); PLATELET COUNT (AUTO) 235 /CMM (150-450); RDW COEFFICIENT OF VARIATION 14.4 (11.5-15.0); RED BLOOD CELL COUNT(AUTO) 3.94 MIL/uL (4.5-6.0); WHITE BLOOD COUNT (AUTO) 19.9 K/uL (4.3-11.0)
[2016-08-25 07:04] LABS: CALCIUM, SERUM 8.6 mg/dL (8.5-10.1); CREATININE 1.5 mg/dL (0.6-1.3); POTASSIUM 4.5 mmol/L (3.5-5.1)
[2016-08-25] MEDS: ALBUTEROL FS 2.5 MG/3 ML VIAL.NEB NEB SCH ×3 (07:43→23:10)
[2016-08-25 08:00] VITALS: BP 143/64
--- NOTE | 2016-08-25 08:33 | NUR ---
RN AM NOTES PATIENT RECEIVED ASLEEP, BUT AROUSABLE, ORIENTED X 3. WAITING FOR BREAKFAST, NO COMPLAINTS OF PAIN OR DISCOMFORT. WILL CONTINUE TO MONITOR.
[2016-08-25] MEDS: ISOSORBIDE DINITRATE (20MG) 20 MG TABLET PO SCH ×4 (09:00→16:49)
[2016-08-25] MEDS: DIVALPROEX SODIUM 250 MG TABLET.DR PO SCH ×3 (11:45→16:49)
[2016-08-25] MEDS: METOPROLOL TARTRATE 25 MG TABLET PO SCH ×2 (11:47→16:50)
[2016-08-25] MEDS: AMIODARONE HCL 200 MG TABLET PO SCH (11:47)
[2016-08-25] MEDS: LamoTRIgine 25 MG TABLET PO SCH ×2 (11:48→16:49)
[2016-08-25] MEDS: DOCUSATE SODIUM 100 MG CAPSULE PO SCH ×2 (11:48→16:47)
[2016-08-25] MEDS: GABAPENTIN 300 MG CAPSULE PO SCH ×3 (11:48→16:49)
[2016-08-25] MEDS: hydrALAZINE HCL 50 MG TABLET PO SCH ×3 (11:49→16:49)
[2016-08-25] MEDS: MORPHINE SULFATE SR 15 MG TABLET.SA PO SCH ×2 (11:49→21:14)
[2016-08-25] MEDS: RIVAROXABAN 10 MG TABLET PO SCH (11:53)
[2016-08-25] MEDS: methylPREDNISolone SOD SUCC 40 MG/ML VIAL IV SCH (11:54)
[2016-08-25] MEDS: PANTOPRAZOLE 40 MG TABLET.DR PO SCH (12:03)
[2016-08-25] MEDS: MOMETASONE FUROATE NASAL SUSP 17 GM BOTTLE SCH (12:07)
[2016-08-25] MEDS: predniSONE 20 MG TABLET PO SCH (14:24)
--- NOTE | 2016-08-25 15:33 | NUR ---
PATIENT WITH NO COMPLAINTS OF PAIN, RESTING COMFORTABLY IN BED, NAPPING INTERMITTENTLY WITH, EASILY AROUSABLE. MEDICATION EFFECTIVE. REASSESSMENT DONE ACCIDENTALLY ON RT SCREEN. WILL CONTINUE TO MONITOR.
[2016-08-25 16:00] VITALS: BP 136/71
--- NOTE | 2016-08-25 19:02 | NUR ---
RN PM NOTES PATIENT RESTING IN BED WITH NO COMPLAINTS OF SOB, DISTRESS OR PAIN. AWAITING POSSIBLE DISCHARGE TO SNF TOMORROW. WILL ENDORSE TO NEXT SHIFT.
[2016-08-25 20:00] VITALS: BP 134/61
--- NOTE | 2016-08-25 20:15 | NUR ---
RECEIVED PATIENT IN BED ALERT ORIENT X3 LAURENCE ANY PAIN OR DISCOMFORT AT THIS TIME VITAL SIGN STABLE RESPIRATORY IS EVEN UNLABORED, AFEBRILE, LAYING ON HIS BED RIGHT NOW WILL CONTINUES TO MONITOR THE PATIENT FOR SAFETY AND FALL.
[2016-08-25] MEDS: TAMSULOSIN 0.4 MG CAP.SR.24H PO SCH (21:14)
[2016-08-25] MEDS: QUETIAPINE FUMARATE 25 MG TABLET PO SCH (21:14)
[2016-08-25] MEDS: TOLTERODINE 2 MG CAP.SR PO SCH (21:15)
[2016-08-25] MEDS: DUTASTERIDE (0.5 MG) 0.5 MG CAPSULE PO SCH (21:15)
[2016-08-25] MEDS: ATORVASTATIN 10 MG TABLET PO SCH (21:15)
[2016-08-26 06:37] LABS: HEMATOCRIT 35 % (39-51); HEMOGLOBIN 11.9 g/dL (13.5-17.5); LYMPHOCYTES # (AUTO) 0.7 /CMM (0.8-4.8); LYMPHOCYTES % (AUTO) 4.6 % (20.0-44.0); MEAN CORPUSCULAR HEMOGLOBIN 33 PG (26.0-33.0); MEAN CORPUSCULAR HGB CONC 34 g/dl (31.0-36.0); MEAN CORPUSCULAR VOLUME 98 fL (80-96); MONOCYTES # (AUTO) 1.5 /CMM (0.1-1.30); MONOCYTES % (AUTO) 10.2 % (2.0-12.0); NEUTROPHILS # (AUTO) 12.3 /CMM (1.8-8.9); NEUTROPHILS % (AUTO) 85.2 % (43.0-81.0); PLATELET COUNT (AUTO) 212 /CMM (150-450); RED BLOOD CELL COUNT(AUTO) 3.57 MIL/uL (4.5-6.0); WHITE BLOOD COUNT (AUTO) 14.4 K/uL (4.3-11.0)
[2016-08-26 06:59] LABS: CREATININE 1.4 mg/dL (0.6-1.3); POTASSIUM 4.8 mmol/L (3.5-5.1)
--- NOTE | 2016-08-26 07:25 | NUR ---
MS/RN AM NOTES RECEIVED PATIENT IN BED, AWAKE, ALERT, WITHOUT SOB, ON RA TOLERATING WELL, DENIES PAIN. IV LINE INTACT ON RIGHT HAND, PATENT. HOB ELEVATED 35 DEGREE, BED IN LOW POSITION, 2 SR UP FOR SAFETY, WITH CALL LIGHT WITHIN EASY REACH, WILL CONTINUE TO MONITOR ACCORDINGLY
[2016-08-26 08:00] VITALS: BP 132/57
[2016-08-26] MEDS: ALBUTEROL FS 2.5 MG/3 ML VIAL.NEB NEB SCH (08:01)
[2016-08-26] MEDS: LamoTRIgine 25 MG TABLET PO SCH (09:27)
[2016-08-26] MEDS: PANTOPRAZOLE 40 MG TABLET.DR PO SCH (09:27)
[2016-08-26] MEDS: MORPHINE SULFATE SR 15 MG TABLET.SA PO SCH (09:28)
[2016-08-26] MEDS: METOPROLOL TARTRATE 25 MG TABLET PO SCH (09:29)
[2016-08-26] MEDS: predniSONE 20 MG TABLET PO SCH (09:29)
[2016-08-26] MEDS: DOCUSATE SODIUM 100 MG CAPSULE PO SCH (09:30)
[2016-08-26] MEDS: AMIODARONE HCL 200 MG TABLET PO SCH (09:30)
[2016-08-26] MEDS: DIVALPROEX SODIUM 250 MG TABLET.DR PO SCH (09:30)
[2016-08-26] MEDS: GABAPENTIN 300 MG CAPSULE PO SCH (09:30)
[2016-08-26] MEDS: MOMETASONE FUROATE NASAL SUSP 17 GM BOTTLE SCH (09:32)
[2016-08-26] MEDS: hydrALAZINE HCL 50 MG TABLET PO SCH (09:32)
[2016-08-26 09:33] VITALS: BP 132/57
[2016-08-26] MEDS: ISOSORBIDE DINITRATE (20MG) 20 MG TABLET PO SCH (09:33)
[2016-08-26] MEDS: RIVAROXABAN 10 MG TABLET PO SCH (09:39)
--- NOTE | 2016-08-26 13:00 | NUR ---
MS/FERMENTING CELLARS RECEIVER NOTES DISCHARGED PATIENT TO [facility] IN STABLE CONDITION, NO CHEST PAIN, NO PAIN, DISCHARGE CARE INSTRUCTION ABOUT HEALTH GIVEN, VERBALIZED UNDERSTANDING.LEFT WITH ALL HIS BELONGINGS, AND DISCHARGE PAPERS, BY AMBULANCE, REPORT GIVEN TO MYRA UNDERWOOD) FROM REHAB
== END 2016-08-26 12:58 | DRG 280 ==
LOC: ER 19:17 → MED 22:04 → TELE 22:24 → MED 08-22 09:00
PROVIDERS: ADMIT Legal Medicine; ATTEND Legal Medicine
DX: I21.4 Non-ST elevation (NSTEMI) myocardial infarction (principal); N17.0 Acute kidney failure with tubular necrosis; I50.32 Chronic diastolic (congestive) heart failure; J44.1 Chronic obstructive pulmonary disease with (acute) exacerbation; J44.0 Chronic obstructive pulmonary disease with (acute) lower respiratory infection; I16.0 Hypertensive urgency; E78.5 Hyperlipidemia, unspecified; I48.2 Chronic atrial fibrillation; I25.10 Atherosclerotic heart disease of native coronary artery without angina pectoris; F41.9 Anxiety disorder, unspecified; E66.9 Obesity, unspecified; G62.9 Polyneuropathy, unspecified; Z71.6 Tobacco abuse counseling; D72.829 Elevated white blood cell count, unspecified; T38.0X5A Adverse effect of glucocorticoids and synthetic analogues, initial encounter; F25.9 Schizoaffective disorder, unspecified; G20 Parkinson's disease; I73.9 Peripheral vascular disease, unspecified; N40.0 Benign prostatic hyperplasia without lower urinary tract symptoms; F17.210 Nicotine dependence, cigarettes, uncomplicated; I11.0 Hypertensive heart disease with heart failure; Y92.009 Unspecified place in unspecified non-institutional (private) residence as the place of occurrence of the external cause; J20.9 Acute bronchitis, unspecified; Z68.35 Body mass index [BMI] 35.0-35.9, adult
CPT/HCPCS: 36415; 71010-TC; 80048-TC; 80053-TC; 80061-TC; 83735-TC; 84100-TC; 84439-TC; 84443-TC; 84484-TC; 85025-TC; 85730-TC; 87081-TC; 93307-TC; 94799-TC; 97001-TC; A4606; A9502; J2270; J2785; J2920; J2930; Z7610

== ENCOUNTER 2016-12-05 10:10 | Inpatient (IN) | payer MEDICARE, OTHER ==
[2016-12-05] VITALS (17 sets, daily range): BP systolic 100–194; BP diastolic 43–111
[~2016-12-05] VITALS: Ht 180.3 cm; Wt 78.5 kg
[~2016-12-05 10:10] MED LIST changes: -AMIO200T; -ASPI-807 PO; +ATOR10TA PO; -ATOR20TA PO; -AZIT250T6; -BUDE10.2; -DIVA500T2 PO; -DOCU-270 PO; +HYDR-4077 PO; +IPRA3AMP IH; +ISOS20TA8 PO; -LORA10CA; -LORA1TAB PO; -LORA1TAB82; -LOSA50TA3; -MOME17SP; -MOME17SP NS; -MUPI22OI7; -PANT40SU; +PANT40TA4 PO; -QUET50TA PO; -RIVA10TA; +RIVA10TA PO; -SPIR25TA4 PO; -TAMS-12; +TRAZ-144 PO
--- NOTE | 2016-12-05 10:10 | NUR ---
Altered mental status; SNF. PLACED PT ON MONITOR. AWAITING MD ORDER
[2016-12-05] MEDS ORDERED: IV NS 0.9% 1,000 ML BAG IV ONE (10:30)
[2016-12-05] MEDS ORDERED: TDAP [DIPH/PERTUSSIS/TET] 0.5 ML VIAL IM ONE ×2 (10:30→11:07)
--- NOTE | 2016-12-05 10:40 | NUR ---
DEEPTI #22 IV ACCESS. BLOOD SAMPLE COLLECTED SENT TO LAB
[2016-12-05 11:01] LABS: BASOPHILS # (AUTO) 0.1 /CMM (0.0-0.2); BASOPHILS % (AUTO) 0.6 % (0.0-2.0); EOSINOPHILS # (AUTO) 0.2 /CMM (0.0-0.7); EOSINOPHILS % (AUTO) 1.6 % (0.0-6.0); HEMATOCRIT 35 % (39-51); HEMOGLOBIN 11.7 g/dL (13.5-17.5); LYMPHOCYTES # (AUTO) 0.9 /CMM (0.8-4.8); LYMPHOCYTES % (AUTO) 8.6 % (20.0-44.0); MEAN CORPUSCULAR HEMOGLOBIN 33 PG (26.0-33.0); MEAN CORPUSCULAR HGB CONC 33 g/dl (31.0-36.0); MEAN CORPUSCULAR VOLUME 99 fL (80-96); MONOCYTES # (AUTO) 2.1 /CMM (0.1-1.30); MONOCYTES % (AUTO) 18.7 % (2.0-12.0); NEUTROPHILS # (AUTO) 7.7 /CMM (1.8-8.9); NEUTROPHILS % (AUTO) 70.5 % (43.0-81.0); PLATELET COUNT (AUTO) 262 /CMM (150-450); RDW COEFFICIENT OF VARIATION 13.9 (11.5-15.0); RED BLOOD CELL COUNT(AUTO) 3.59 MIL/uL (4.5-6.0)
[2016-12-05] MEDS ORDERED: MORP15TA PO ×2 (11:08→11:10)
[2016-12-05] MEDS ORDERED: HYDR-552 PO ×2 (11:08→11:10)
[2016-12-05] MEDS ORDERED: AMIO200T2 PO (11:10)
--- NOTE | 2016-12-05 11:22 | NUR ---
PT TO RADIOLOGY FOR HEAD CT SCAN VIA [facility].
[2016-12-05 11:24] LABS: BAND % (MANUAL) 4 % (0.0-5.0); EOSINOPHILS % (MANUAL) 2 % (0-4); LYMPHOCYTES % (MANUAL) 13 % (16-48); MONOCYTES % (MANUAL) 11 % (0-11.0); NEUTROPHILS % (MANUAL) 70 (42-76)
--- NOTE | 2016-12-05 11:28 | NUR ---
CALLED NURSING DERRICK HELPER FOR TELE BED
[2016-12-05] MEDS ORDERED: LEVOFLOXACIN 750 MG /D5W 150ML 150 ML IV ONE ×2 (11:30→11:50)
[2016-12-05 11:32] LABS: CALCIUM, SERUM 8.5 mg/dL (8.5-10.1); CARBON DIOXIDE 29 mmol/L (21-32); CHLORIDE 111 mmol/L (98-107); CREATININE 1.2 mg/dL (0.6-1.3); GLUCOSE 97 mg/dL (74-106); POTASSIUM 4.4 mmol/L (3.5-5.1); SODIUM SERUM 145 mmol/L (136-145); UREA NITROGEN, BLOOD 17 mg/dL (7-18)
[2016-12-05 11:36] LABS: INR 1.27 (0.87-1.13); PROTHROMBIN TIME 13.4 SECS (9.5-12.7)
[2016-12-05 11:38] LABS: ALANINE AMINOTRANSFERASE 13 U/L (12-78); ALBUMIN 3.1 g/dL (3.4-5.0); ALCOHOL, BLOOD < 3 mg/dL (0-0); ALKALINE PHOSPHATASE 44 U/L (46-116); ASPARTATE AMINOTRANSFERASE 16 U/L (15-37); BILIRUBIN,DIRECT 0.2 mg/dL (0.0-0.2); BILIRUBIN,TOTAL 0.6 mg/dL (0.2-1.0); TOTAL PROTEIN, SERUM 6.4 g/dL (6.4-8.2)
[2016-12-05 11:53] LABS: TROPONIN I 0.029 ng/mL (0.00-0.056)
[2016-12-05 11:54] LABS: APPEARANCE,URINE Slightly Cloudy (CLEAR); BILIRUBIN,URINE Negative (NEGATIVE); BLOOD, URINE Trace-lysed Ery/uL (NEGATIVE); COLOR,URINE Yellow (YELLOW); KETONES,URINE Negative (NEGATIVE); LEUKOCYTE ESTERASE ,URINE Moderate (NEGATIVE); NITRITE, URINE Positive (NEGATIVE); PROTEIN,URINE 100 mg/dl (NEGATIVE); UGLUCOSE Negative (NEGATIVE)
[2016-12-05 11:59] LABS: BACTERIA,URINE Few /HPF (None Seen); RBC,URINE 0-3 /HPF (0-2); SQUAMOUS EPITHELIAL CELL,UR Few /HPF (None Seen); WBC,URINE 30-50 /HPF (0-3)
--- NOTE | 2016-12-05 12:05 | NUR ---
CALLED DR ANEL VELASQUEZ FOR NEUROSURGERY CONSULT. TRANSFERRED CALL TO DR MORAN
--- NOTE | 2016-12-05 12:40 | NUR ---
PAGED DR GODDARD FOR PANEL ADMISSION
--- NOTE | 2016-12-05 12:46 | NUR ---
DR GODDARD CALLED, TRANSFERRED CALL TO DR MORAN
[2016-12-05] MEDS ORDERED: MAG HYDROX/AL HYDROX/SIMETH 30 ML UDC PO PRN (13:00)
[2016-12-05] MEDS ORDERED: ONDANSETRON HCL/PF 4 MG/2 ML VIAL IVP PRN (13:00)
[2016-12-05] MEDS ORDERED: Z GUARD REMEDY 2 OZ OINT TP PRN (13:00)
[2016-12-05] MEDS ORDERED: MAGNESIUM HYDROXIDE 30 ML UDC PO PRN (13:00)
[2016-12-05] MEDS ORDERED: ACETAMINOPHEN 325 MG TABLET PO PRN (13:00)
[2016-12-05] MEDS ORDERED: ZOLPIDEM TARTRATE 5 MG TABLET PO PRN (13:00)
--- NOTE | 2016-12-05 13:12 | NUR ---
ICU 257
--- NOTE | 2016-12-05 13:18 | NUR ---
DR. VELASQUEZ SENT A TEXT MESSAGE AFTER REVIEW OF CT SCAN; CLEARED FOR ICU ADMISSION- REPEAT CT OF THE HEAD TOMORROW
--- NOTE | 2016-12-05 13:26 | NUR ---
REPORT GIVEN TO ULISES WISDOM. PT AWAITING TRANSFER TO FLOOR.
--- NOTE | 2016-12-05 13:45 | NUR ---
CERTIFIED TUMOR REGISTRAR- INITIAL ADMISSION NOTE RECEIVED PT FROM ER VIA BRIELLE. DX: INTRACRANIAL BLEED. PT A/OX1, CONFUSED, ABLE TO FOLLOW SIMPLE COMMANDS. ON ROOM AIR, RESPIRATIONS EVEN AND UNLABORED, NO SOB OR DISTRESS NOTED, SATURATING AT 95%. BEDSIDE MONITOR REVEALS SINUS IRVING- SINUS RHYTHM, HR RANGING BETWEEN 50S- 80S. PT CONTINENT OF URINE & STOOL WITH OCCASIONAL EPISODES OF INCONTINENCE. COMPLETE SKIN CHECK DONE (NO OPEN WOUNDS NOTED), PICTURES TAKEN AND PLACED IN CHART. TWO IVS PRESENT: 1) RIGHT HAND 20G SL AND 2) LEFT HAND 20G SL. BOTH IVS FLUSHED, PATENT, INTACT AND FREE OF REDNESS, SWELLING AND INFLAMMATION. SAFETY MEASURES TAKEN: BED LOCKED AND IN LOW POSITION, SIDE RAILS UP X2, BED ALARM ON AND CALL LIGHT WITHIN REACH, WILL CONTINUE TO MONITOR.
[2016-12-05] MEDS ORDERED: ALBUTEROL FS 2.5 MG/3 ML VIAL.NEB NEB PRN (14:30)
[2016-12-05] MEDS ORDERED: hydrALAZINE HCL 50 MG TABLET PO PRN (14:30)
--- NOTE | 2016-12-05 15:35 | NUR ---
NOCTURNIST- INFORMED DR. GODDARD OF PT'S ELEVATED BP (MOST RECENT 183/111). PT HAS SCHEDULED ISORDIL AND METOPROLOL DUE AT 1700. HOWEVER, PT HAS EPISODES OF BRADYCARDIA, HR GOES LOW 45. PT ALSO HAS HYDRALAZINE 50 MG PRN. PER MD, HOLD METOPROLOL AND OK TO ADMINISTER ISORDIL & HYDRALAZINE. WILL CONTINUE TO MONITOR.
[2016-12-05] MEDS: DIVALPROEX SODIUM 250 MG TABLET.DR PO SCH ×2 (15:50→16:01)
[2016-12-05] MEDS: GABAPENTIN 300 MG CAPSULE PO SCH ×2 (15:50→16:01)
[2016-12-05] MEDS: IV NS 0.9% 1,000 ML IV PRN (15:59)
--- NOTE | 2016-12-05 16:10 | NUR ---
SOLID WASTE DISPOSAL MANAGER- PER TRAILER TECHNICIAN, REPEAT CT SCHEDULED AT 2200 UNABLE TO BE DONE AT THAT TIME. CAN BE DONE AT 2100 AND 2300. PER OK TO DO REPEAT CT AT 2300. PATIENT FINANCIAL REP AWARE. WILL CONTINUE TO MONITOR.
[2016-12-05] MEDS: LamoTRIgine 25 MG TABLET PO SCH (16:38)
[2016-12-05] MEDS: ISOSORBIDE DINITRATE (20MG) 20 MG TABLET PO SCH (16:38)
[2016-12-05] MEDS ORDERED: METOPROLOL TARTRATE 25 MG TABLET PO SCH (17:00)
--- NOTE | 2016-12-05 17:00 | NUR ---
DATA REPORTING ANALYST- DEPAKOTE 250 MG AND NEURONTIN 300 MG NON-ADMINISTERED. FIRST DOSE GIVEN AT 1550. WILL CONTINUE TO MONITOR.
[2016-12-05] MEDS: HYDROCODONE/APAP 5/325MG 1 EACH TABLET PO PRN (17:40)
--- NOTE | 2016-12-05 18:30 | NUR ---
SCREW SUPERVISOR- INFORMED DR. GODDARD PT'S LATEST BLOOD PRESSURE IS 154/92, HR= 65. SINUS ARRHYTHMIA ON MONITOR. AWARE. OBTAINED NEW ORDER FOR MORPHINE 4 MG IV Q4H PRN SEVERE PAIN (INFORMED MD ANGUIANO 5-325 MG GIVEN EARLIER FOR C/O PAIN). PT CURRENTLY SLEEPING & RESTING IN BED. STATES SHE WILL HAVE CARDIO CONSULT FOR PT. WILL CONTINUE TO MONITOR.
[2016-12-05] MEDS ORDERED: LABETALOL HCL (100MG) 100 MG TABLET PO PRN (19:30)
[2016-12-05] MEDS: hydrALAZINE HCL 50 MG TABLET PO SCH (20:50)
[2016-12-05] MEDS: MORPHINE SULFATE IR 15 MG TABLET PO SCH (21:01)
--- NOTE | 2016-12-05 21:30 | NUR ---
PT TAKEN FOR CT SCAN OF HEAD, AWAITING RESULTS
[2016-12-05] MEDS: TRAZODONE 50 MG TABLET PO SCH (21:55)
[2016-12-05] MEDS: DUTASTERIDE (0.5 MG) 0.5 MG CAPSULE PO SCH (21:55)
[2016-12-05] MEDS: TAMSULOSIN 0.4 MG CAP.SR.24H PO SCH (21:55)
[2016-12-05] MEDS: ATORVASTATIN 10 MG TABLET PO SCH (21:55)
[2016-12-05] MEDS ORDERED: ENALAPRILAT INJ (1.25 MG/ML) 1.25 MG/ML VIAL IV PRN (22:00)
[2016-12-05] MEDS ORDERED: hydrALAZINE HCL IV 20 MG VIAL IV PRN (22:00)
[2016-12-06] VITALS (29 sets, daily range): BP systolic 86–166; BP diastolic 36–92
[2016-12-06 04:46] LABS: BASOPHILS % (AUTO) 0.2 % (0.0-2.0); EOSINOPHILS # (AUTO) 0.2 /CMM (0.0-0.7); EOSINOPHILS % (AUTO) 1.4 % (0.0-6.0); HEMATOCRIT 35 % (39-51); HEMOGLOBIN 11.8 g/dL (13.5-17.5); LYMPHOCYTES # (AUTO) 1.3 /CMM (0.8-4.8); MEAN CORPUSCULAR HEMOGLOBIN 33 PG (26.0-33.0); MEAN CORPUSCULAR HGB CONC 33 g/dl (31.0-36.0); MEAN CORPUSCULAR VOLUME 99 fL (80-96); MONOCYTES # (AUTO) 2.7 /CMM (0.1-1.30); MONOCYTES % (AUTO) 21.2 % (2.0-12.0); NEUTROPHILS # (AUTO) 8.7 /CMM (1.8-8.9); NEUTROPHILS % (AUTO) 67.2 % (43.0-81.0); PLATELET COUNT (AUTO) 246 /CMM (150-450); RDW COEFFICIENT OF VARIATION 14.6 (11.5-15.0); RED BLOOD CELL COUNT(AUTO) 3.55 MIL/uL (4.5-6.0); WHITE BLOOD COUNT (AUTO) 12.9 K/uL (4.3-11.0)
[2016-12-06 04:59] LABS: CALCIUM, SERUM 8.3 mg/dL (8.5-10.1); CARBON DIOXIDE 28 mmol/L (21-32); CHLORIDE 109 mmol/L (98-107); CREATININE 1.3 mg/dL (0.6-1.3); GLUCOSE 84 mg/dL (74-106); MAGNESIUM 2.1 mg/dL (1.8-2.4); PHOSPHORUS 4.4 mg/dL (2.5-4.9); POTASSIUM 4.6 mmol/L (3.5-5.1); SODIUM SERUM 143 mmol/L (136-145); UREA NITROGEN, BLOOD 21 mg/dL (7-18)
[2016-12-06 05:40] LABS: EOSINOPHILS % (MANUAL) 2 % (0-4); LYMPHOCYTES % (MANUAL) 12 % (16-48); MONOCYTES % (MANUAL) 12 % (0-11.0); NEUTROPHILS % (MANUAL) 74 (42-76)
[2016-12-06] MEDS: IV NS 0.9% 1,000 ML IV PRN (06:25)
[2016-12-06] MEDS: PANTOPRAZOLE 40 MG TABLET.DR PO SCH (08:31)
[2016-12-06] MEDS: hydrALAZINE HCL 50 MG TABLET PO SCH ×3 (08:31→16:47)
[2016-12-06] MEDS: DIVALPROEX SODIUM 250 MG TABLET.DR PO SCH ×3 (08:31→16:47)
[2016-12-06] MEDS: MORPHINE SULFATE IR 15 MG TABLET PO SCH ×2 (08:32→21:10)
[2016-12-06] MEDS: ISOSORBIDE DINITRATE (20MG) 20 MG TABLET PO SCH (08:32)
[2016-12-06] MEDS: LamoTRIgine 25 MG TABLET PO SCH ×2 (08:32→16:47)
[2016-12-06] MEDS: GABAPENTIN 300 MG CAPSULE PO SCH ×3 (08:32→16:47)
[2016-12-06] MEDS ORDERED: AMIODARONE HCL 200 MG TABLET PO SCH (09:00)
[2016-12-06] MEDS ORDERED: IV NS 0.9% 250 ML IV ONE (10:56)
[2016-12-06] MEDS ORDERED: CT SWABBABLE VALVE TRANS SET 1 EA INFUS.SET MC ONE (10:56)
[2016-12-06] MEDS ORDERED: IOHEXOL-350 100 ML VIAL IV ONE (10:56)
--- NOTE | 2016-12-06 12:30 | NUR ---
INTERPRETER AND TRANSLATOR- PT A HARD STICK. UNABLE TO INSERT A PERIPHERAL IV IN THE AC. AWAITING FOR MIDLINE INSERTION PRIOR TO CTA HEAD. WILL CONTINUE TO MONITOR.
[2016-12-06] MEDS: HYDROCODONE/APAP 5/325MG 1 EACH TABLET PO PRN ×2 (14:45→23:45)
--- NOTE | 2016-12-06 14:45 | NUR ---
SWEEP PRESS OPERATOR- PT TAKEN TO CT VIA ACLS PROTOCOL. 1515- PT RETURNED FROM CT. TOLERATED PROCEDURE WELL. AWAITING RESULTS. WILL CONTINUE TO MONITOR.
--- NOTE | 2016-12-06 20:00 | NUR ---
BUSINESS EMPLOYMENT SPECIALIST - NOTES - RECEIVED PT FROM IN BED A/OX2-3, CONFUSED, ABLE TO FOLLOW SIMPLE COMMANDS. ON 2L NC, RESPIRATIONS EVEN AND UNLABORED, NO SOB OR DISTRESS NOTED, SATURATING AT >95%. BEDSIDE MONITOR REVEALS SINUS IRVING- SINUS RHYTHM, HR RANGING BETWEEN 40S- 80S. PT CONTINENT OF URINE & STOOL WITH OCCASIONAL EPISODES OF INCONTINENCE. PT HAS FRANCESCO MIDLINE AND LEFT HAND 20G, FLUSHED, PATENT, INTACT AND FREE OF REDNESS, SWELLING AND INFLAMMATION. SAFETY MEASURES TAKEN: BED LOCKED AND IN LOW POSITION, SIDE RAILS UP X2, BED ALARM ON AND CALL LIGHT WITHIN REACH, WILL CONTINUE TO MONITOR.
[2016-12-06] MEDS: TAMSULOSIN 0.4 MG CAP.SR.24H PO SCH (21:06)
[2016-12-06] MEDS: TRAZODONE 50 MG TABLET PO SCH (21:06)
[2016-12-06] MEDS: DUTASTERIDE (0.5 MG) 0.5 MG CAPSULE PO SCH (21:06)
[2016-12-06] MEDS: ATORVASTATIN 10 MG TABLET PO SCH (21:11)
[2016-12-07] VITALS (14 sets, daily range): BP systolic 90–159; BP diastolic 31–79
[2016-12-07 04:36] LABS: BASOPHILS % (AUTO) 0.1 % (0.0-2.0); EOSINOPHILS # (AUTO) 0.2 /CMM (0.0-0.7); EOSINOPHILS % (AUTO) 2.2 % (0.0-6.0); HEMATOCRIT 31 % (39-51); HEMOGLOBIN 10.3 g/dL (13.5-17.5); LYMPHOCYTES # (AUTO) 1.1 /CMM (0.8-4.8); LYMPHOCYTES % (AUTO) 9.7 % (20.0-44.0); MEAN CORPUSCULAR HEMOGLOBIN 33 PG (26.0-33.0); MEAN CORPUSCULAR HGB CONC 33 g/dl (31.0-36.0); MEAN CORPUSCULAR VOLUME 100 fL (80-96); MONOCYTES # (AUTO) 2.4 /CMM (0.1-1.30); MONOCYTES % (AUTO) 21.7 % (2.0-12.0); NEUTROPHILS # (AUTO) 7.2 /CMM (1.8-8.9); NEUTROPHILS % (AUTO) 66.3 % (43.0-81.0); PLATELET COUNT (AUTO) 224 /CMM (150-450); RDW COEFFICIENT OF VARIATION 14.4 (11.5-15.0); RED BLOOD CELL COUNT(AUTO) 3.12 MIL/uL (4.5-6.0); WHITE BLOOD COUNT (AUTO) 10.9 K/uL (4.3-11.0)
[2016-12-07 04:50] LABS: CALCIUM, SERUM 7.8 mg/dL (8.5-10.1); CARBON DIOXIDE 28 mmol/L (21-32); CHLORIDE 113 mmol/L (98-107); CREATININE 1.5 mg/dL (0.6-1.3); GLUCOSE 106 mg/dL (74-106); PHOSPHORUS 3.9 mg/dL (2.5-4.9); POTASSIUM 4.3 mmol/L (3.5-5.1); SODIUM SERUM 147 mmol/L (136-145); UREA NITROGEN, BLOOD 26 mg/dL (7-18)
[2016-12-07] MEDS: HYDROCODONE/APAP 5/325MG 1 EACH TABLET PO PRN (05:19)
[2016-12-07 05:40] LABS: BAND % (MANUAL) 2 % (0.0-5.0); EOSINOPHILS % (MANUAL) 3 % (0-4); LYMPHOCYTES % (MANUAL) 15 % (16-48); METAMYELOCYTES % 1 % (0-0); MONOCYTES % (MANUAL) 14 % (0-11.0); NEUTROPHILS % (MANUAL) 64 (42-76); REACTIVE LYMPHOCYTES 1 % (0-0)
[2016-12-07] MEDS: GABAPENTIN 300 MG CAPSULE PO SCH ×3 (08:12→16:56)
[2016-12-07] MEDS: MORPHINE SULFATE IR 15 MG TABLET PO SCH ×2 (08:12→21:09)
[2016-12-07] MEDS: LamoTRIgine 25 MG TABLET PO SCH ×2 (08:12→16:57)
[2016-12-07] MEDS: DIVALPROEX SODIUM 250 MG TABLET.DR PO SCH ×3 (08:13→16:56)
[2016-12-07] MEDS: PANTOPRAZOLE 40 MG TABLET.DR PO SCH (08:13)
[2016-12-07] MEDS: hydrALAZINE HCL 50 MG TABLET PO SCH ×3 (08:13→16:57)
[2016-12-07] MEDS: MORPHINE SULFATE INJ 4 MG/ML DISP.SYRIN IV PRN ×2 (09:38→18:20)
--- NOTE | 2016-12-07 10:43 | NUR ---
WOUND CARE CONSULT PATIENT SEEN AND SKIN INTEGRITY ASSESSMENT DONE. SEE DEPUTY INSURANCE COMMISSIONER ASSESSMENT IN PCS FOR TODAY ALONG WITH ALL RECOMMENDATIONS. PATIENT WITH CURRENT GIOVANY AT 15, INDEPENDENT WITH BED MOBILITY, BUT IS NOTED TO BE INCONTINENT. RECOMMEND CONTINUE USE OF Z GUARD, PATIENT ON GENEVIEVE ISOFLEX LOW AIRLOSS SPECIALTY BED. ALL SKIN MANAGEMENT DISCUSSED WITH NURSING AT THE BEDSIDE. MD IN AGREEMENT WITH PLAN OF CARE. Addendum: 12/07/16 at 1045 by JORDAN GAMEZ WNDNU Amended: Links added.
[2016-12-07] MEDS: IV NS 0.9% 1,000 ML IV PRN ×2 (12:10→22:21)
[2016-12-07] MEDS ORDERED: hydrALAZINE HCL 50 MG TABLET PO PRN (14:00)
--- NOTE | 2016-12-07 14:30 | NUR ---
[facility] RN ADMITTING NOTES: REC'D PT FROM MAINTENANCE WELDER VIA WHEELCHAIR, NOT IN ANY DISTRESS, A/O X2-3. PT ON O2 AT 2LPM/NC, NO SOB NOTED. ON TELEMONITOR, SB (LOW HR AT 39 BPM WHILE SLEEPING). HAS FRANCESCO MIDLINE, FLUSHED PATENT & INTACT W/ NO SIGNS OF INFECTION/ INFILTRATION, HOOKED BACK NS AT 100 CC/HR. L HAND G20, FLUSHED, + LEAK, REMOVED, PRESSURE DRESSING APPLIED. PT ORIENTED TO ROOM. ALL BELONGINGS PUT INSIDE PT'S BEDSIDE CABINET. PROVIDED COMFORT & SAFETY MEASURES. BED KEPT LOW & IN LOCKED POS. CALL LIGHT PLACED W/IN REACH. WILL CONTINUE TO MONITOR.
--- NOTE | 2016-12-07 14:45 | NUR ---
QUALITY INSPECTOR NOTE 0720: Received patient awake, A/Ox2-3, noted with confusion at times. On 2LPM of O2 via NC, 93& O2 sat. No c/o pain at this time. With FRANCESCO ML intact. With diapers on, encouraged to use urinals when able. 0940: With c/o chest pain 9/10 acute pain. Obtained order for EKG and Trop, NSR and neg trop. Morphine given and verbalized relief. 1200: S/E by Dr. Connors, made aware for episode of CP and still with hypertension and hypotension noted at times, with order to restart IVF and decreased Hydralazine dose, said may able to transfer to [facility]. 1300: S/E by Dr. Stack, no new order at this time. AWare for the episode of CP. 1400: S/E by PT, able to walk in the corridor with walker and one person assist. 1430: Transferred patient via wheelchair to [facility], 116-2, vannessa ACLS protocol. No any significant changes noted at this time. Endorsed to Yvonne WISDOM for LAURO.
--- NOTE | 2016-12-07 18:53 | NUR ---
[facility] RN CLOSING NOTES: NO ACUTE CHANGES NOTED W/IN SHIFT. PT TOLERATED O2 AT 2LPM/NC, NO SOB NOTED. ON TELEMONITOR, STILL W/ EPISODE OF SB BUT ASYMPTOMATIC. FRANCESCO MIDLINE, KEPT PATENT & INTACT W/ NO SIGNS OF INFECTION/ INFILTRATION, NS AT 100 CC/HR INFUSING WELL. KEPT WELL RESTED. PT C/O SEVERE LOW BACK PAIN 01/22. VERBALIZED RELIEF AFTER GIVING PRN PAIN MEDICATION. BED KEPT LOW & IN LOCKED POS. CALL LIGHT PLACED W/IN REACH. NEEDS ATTENDED. WILL ENDORSED TO PM RN FOR LAURO.
--- NOTE | 2016-12-07 19:20 | NUR ---
RN INITIAL NOTE RECIEVED PT IN NO ACUTE DISTRESS IN BED. PT IS A/O X 2 AND ABLE TO MAKE NEEDS KNOWN. PT HAS PERIODS OF CONFUSION. PT IS ON O2 VIA NC @ 2LPM AND TOLERATING WELL. PT IS ON TELE WITH SR ON THE MONITOR. PT HAS PERIODS OF SINUS IRVING IN THE 30'S WITHOUT ANY ADVERSE EFFECTS. PT HAS FRANCESCO MIDLINE THAT IS CLEAN DRY INTACT AND PATENT WITH NS @ 100ML/HR. PT NOT C/O ANY SOB, DIFFICULTY BREATHING OR PAIN AT THIS TIME. BED IN LOW LOCK POSITION WITH RIALS UP X 2. CALL LIGHT WITHIN REACH AND ALL SAFETY MEASURES ENSURED AND CARRIED OUT. WILL CONTINUE TO MONITOR FOR ANY CHANGES IN CONDITION.
[2016-12-07] MEDS: TRAZODONE 50 MG TABLET PO SCH (21:09)
[2016-12-07] MEDS: ATORVASTATIN 10 MG TABLET PO SCH (21:09)
[2016-12-07] MEDS: TAMSULOSIN 0.4 MG CAP.SR.24H PO SCH (21:10)
[2016-12-07] MEDS: DUTASTERIDE (0.5 MG) 0.5 MG CAPSULE PO SCH (21:10)
[2016-12-08] VITALS: BP 132/40
[2016-12-08] MEDS ORDERED: LEVOFLOXACIN 500 MG /D5W 100ML 500 MG in PREMIX 1 EA IV SCH ×2
[2016-12-08 04:00] VITALS: BP 131/40
[2016-12-08] MEDS: MORPHINE SULFATE INJ 4 MG/ML DISP.SYRIN IV PRN ×2 (05:45→10:49)
--- NOTE | 2016-12-08 06:23 | NUR ---
RN CLOSING NOTE PT REMAINS IN NO ACUTE DISTRESS IN BED. PT DID NOT HAVE ANY SIGNIFICANT CHANGE IN CONDITION DURING SHIFT. PT CONTINUES TO HAVE EPISODES OF BRADYCARDIA A @ 30S WITH NO ADVERSE EFFECTS. ALL NEEDS MET ALL ORDERS CARRIED OUT. WILL ENDORSE TO AM RN FOR CONTINUITY OF CARE.
[2016-12-08 06:32] LABS: BASOPHILS % (AUTO) 0.2 % (0.0-2.0); EOSINOPHILS # (AUTO) 0.3 /CMM (0.0-0.7); EOSINOPHILS % (AUTO) 2.2 % (0.0-6.0); HEMATOCRIT 31 % (39-51); HEMOGLOBIN 10.3 g/dL (13.5-17.5); LYMPHOCYTES # (AUTO) 1.3 /CMM (0.8-4.8); LYMPHOCYTES % (AUTO) 10.7 % (20.0-44.0); MEAN CORPUSCULAR HEMOGLOBIN 34 PG (26.0-33.0); MEAN CORPUSCULAR HGB CONC 34 g/dl (31.0-36.0); MEAN CORPUSCULAR VOLUME 100 fL (80-96); MONOCYTES # (AUTO) 2.6 /CMM (0.1-1.30); MONOCYTES % (AUTO) 21.7 % (2.0-12.0); NEUTROPHILS # (AUTO) 7.9 /CMM (1.8-8.9); NEUTROPHILS % (AUTO) 65.2 % (43.0-81.0); PLATELET COUNT (AUTO) 199 /CMM (150-450); RDW COEFFICIENT OF VARIATION 14.9 (11.5-15.0); RED BLOOD CELL COUNT(AUTO) 3.06 MIL/uL (4.5-6.0); WHITE BLOOD COUNT (AUTO) 12.2 K/uL (4.3-11.0)
[2016-12-08 06:43] LABS: CALCIUM, SERUM 7.7 mg/dL (8.5-10.1); CARBON DIOXIDE 26 mmol/L (21-32); CHLORIDE 112 mmol/L (98-107); CREATININE 1.3 mg/dL (0.6-1.3); GLUCOSE 77 mg/dL (74-106); PHOSPHORUS 3.9 mg/dL (2.5-4.9); POTASSIUM 4.4 mmol/L (3.5-5.1); SODIUM SERUM 146 mmol/L (136-145); UREA NITROGEN, BLOOD 26 mg/dL (7-18)
[2016-12-08 07:39] LABS: EOSINOPHILS % (MANUAL) 1 % (0-4); LYMPHOCYTES % (MANUAL) 16 % (16-48); MONOCYTES % (MANUAL) 16 % (0-11.0); NEUTROPHILS % (MANUAL) 67 (42-76)
[2016-12-08 08:00] VITALS: BP 145/70
[2016-12-08] MEDS: GABAPENTIN 300 MG CAPSULE PO SCH ×2 (08:03→12:27)
[2016-12-08] MEDS: hydrALAZINE HCL 50 MG TABLET PO SCH ×2 (08:03→12:28)
[2016-12-08] MEDS: DIVALPROEX SODIUM 250 MG TABLET.DR PO SCH ×2 (08:03→12:27)
[2016-12-08] MEDS: MORPHINE SULFATE IR 15 MG TABLET PO SCH (08:04)
[2016-12-08] MEDS: PANTOPRAZOLE 40 MG TABLET.DR PO SCH (08:04)
[2016-12-08] MEDS: LamoTRIgine 25 MG TABLET PO SCH (08:07)
[2016-12-08] MEDS ORDERED: LEVO500T15 PO (11:50)
[2016-12-08 12:00] VITALS: BP 127/88
[2016-12-08 12:28] VITALS: BP 127/88
--- NOTE | 2016-12-08 13:05 | NUR ---
attempted to call patient's son to inform of transfer to [facility]- jazz norris [phone]- tried 3x, no option to leave voice message
--- NOTE | 2016-12-08 13:21 | NUR ---
D/C integumentary photos unable to print photos of occipital, nose and arm bruises per d/c protocol- Director- Parish made aware of technical malfunction. performed full skin assessment and skin intact with bruising noted above.
--- NOTE | 2016-12-08 13:41 | NUR ---
d/c note provided ample education to patient regarding diagnosis, medication regimen and possible adverse effects, provded paper work, patient signed it. patient verbalized understanding. Patient consents to going to [facility], stating he prefers not to go back to [facility]. [facility] Bl[facility] at [facility] and gave full report. Jose Alejandro requested to keep midline. informed nurse that patient is not prescribed IV medication, however [place] RN requested to keep it just in case, and they will remove it if not clinically indicated. patient refused vaccines after education provided, stating he may have already received it and does not remember and he does not want it at this time. pickling operator time scheduled at 1500, patient aware. belongings check, confirmed and signed.
--- NOTE | 2016-12-08 15:42 | NUR ---
PHOTO'S PRINTED AND PLACED IN CHART. PATIENT DISCHARGED AT 1530 IN STABLE CONDITION ACCOMPANIED BY 2 DENTAL LABORATORY ASSISTANT. VS STABLE AT TIME OF D/C.
== END 2016-12-08 15:30 | DRG 85 ==
LOC: ER 10:11 → ICU 13:27 → TELE-TD 12-07 14:50
PROVIDERS: ADMIT Internal Medicine; ATTEND Internal Medicine
PROC: 05H533Z Insertion of Infusion Device into Right Subclavian Vein, Percutaneous Approach (ICD-10-PCS; principal; 2016-12-06)
DX: S06.350A Traumatic hemorrhage of left cerebrum without loss of consciousness, initial encounter (principal); I50.31 Acute diastolic (congestive) heart failure; D68.59 Other primary thrombophilia; N39.0 Urinary tract infection, site not specified; E44.1 Mild protein-calorie malnutrition; W18.30XA Fall on same level, unspecified, initial encounter; Y92.89 Other specified places as the place of occurrence of the external cause; G20 Parkinson's disease; F02.80 Dementia in other diseases classified elsewhere, unspecified severity, without behavioral disturbance, psychotic disturbance, mood disturbance, and anxiety; E78.5 Hyperlipidemia, unspecified; D64.9 Anemia, unspecified; E78.00 Pure hypercholesterolemia, unspecified; G93.89 Other specified disorders of brain; I10 Essential (primary) hypertension; I25.10 Atherosclerotic heart disease of native coronary artery without angina pectoris; F25.9 Schizoaffective disorder, unspecified; I48.0 Paroxysmal atrial fibrillation; I34.0 Nonrheumatic mitral (valve) insufficiency; I73.9 Peripheral vascular disease, unspecified; J44.9 Chronic obstructive pulmonary disease, unspecified; R29.6 Repeated falls; N40.0 Benign prostatic hyperplasia without lower urinary tract symptoms; Z79.01 Long term (current) use of anticoagulants; Z79.899 Other long term (current) drug therapy; Z86.73 Personal history of transient ischemic attack (TIA), and cerebral infarction without residual deficits; Z98.62 Peripheral vascular angioplasty status; Z88.6 Allergy status to analgesic agent; Z88.0 Allergy status to penicillin; Z91.013 Allergy to seafood; Z88.8 Allergy status to other drugs, medicaments and biological substances; Z91.018 Allergy to other foods; F41.9 Anxiety disorder, unspecified; F17.200 Nicotine dependence, unspecified, uncomplicated; I49.5 Sick sinus syndrome; D63.8 Anemia in other chronic diseases classified elsewhere; W19.XXXA Unspecified fall, initial encounter
CPT/HCPCS: 36415; 70450-TC; 70496-TC; 71010-TC; 80048-TC; 80076-TC; 81000-TC; 83605-TC; 83735-TC; 83880; 84100-TC; 84443-TC; 84484-TC; 85025-TC; 85730-TC; 87040-TC; 87081-TC; 87086-TC; 87186-TC; 90715; 93880-TC; 97001-TC; 97116-TC; 97530-TC; A4216; A4606; A6402; A6403; G0480; J1956; J2270; J7030; J7050; Q9967; Z7610

== ENCOUNTER 2017-08-21 17:05 | Emergency (ER) | payer MEDICARE, OTHER ==
[~2017-08-21] VITALS: Ht 177.8 cm; Wt 74.8 kg
[~2017-08-21 17:05] MED LIST changes: -AMIO200T2 PO; -HYDR-548 PO; +HYDR-552 PO; -IPRA3AMP IH; +IPRA3AMP23 IH; -ISOS20TA8 PO; +LEVO500T75 PO; -METO25TA6 PO; +MORP15TA PO; -MORP60TA34 PO; -RIVA10TA PO; -TRAZ-144 PO; +TRAZ-182 PO
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
[2017-08-21] MEDS ORDERED: TDAP [DIPH/PERTUSSIS/TET] 0.5 ML VIAL IM ONE ×2 (17:27→17:30)
--- NOTE | 2017-08-21 18:30 | NUR ---
Patient is resting comfortably in bed with eyes closed. Easily aroused. VSS
--- NOTE | 2017-08-21 19:00 | NUR ---
REPORT GIVEN TO ED, FIELD STAFF MANAGER NURSE FOR LAURO.
--- NOTE | 2017-08-21 19:22 | NUR ---
SET UP BLS RIG WITH [facility] - TRIP# [id number] - NO ETA AT THIS TIME
--- NOTE | 2017-08-21 19:23 | NUR ---
[facility] ETA 60 MINUTES
--- NOTE | 2017-08-21 19:57 | NUR ---
TRANSPORT AT BEDSIDE REPORT GIVEN TO EMT TRANSPORT.
[2017-08-21 19:58] VITALS: BP 139/63
== END 2017-08-21 20:12 | disposition home or self-care (01) ==
LOC: ER 17:07
DX: S52.202A Unspecified fracture of shaft of left ulna, initial encounter for closed fracture (principal); S50.02XA Contusion of left elbow, initial encounter; E78.00 Pure hypercholesterolemia, unspecified; G20 Parkinson's disease; I10 Essential (primary) hypertension; I48.91 Unspecified atrial fibrillation; F17.200 Nicotine dependence, unspecified, uncomplicated; Z23 Encounter for immunization; Z88.0 Allergy status to penicillin; Z88.6 Allergy status to analgesic agent; Z88.8 Allergy status to other drugs, medicaments and biological substances; Z91.02 Food additives allergy status; Z91.013 Allergy to seafood; Z91.018 Allergy to other foods; W18.39XA Other fall on same level, initial encounter; Y93.89 Activity, other specified; Y92.811 Bus as the place of occurrence of the external cause; Y99.8 Other external cause status
CPT/HCPCS: 73080; 90471; 90715; 99284; A4606; A6402; Z7610

== ENCOUNTER 2017-09-24 04:40 | Inpatient (IN) | payer MEDICARE, OTHER ==
[~2017-09-24] VITALS: Ht 172.7 cm; Wt 73.0 kg
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
[2017-09-24] MEDS ORDERED: TDAP [DIPH/PERTUSSIS/TET] 0.5 ML VIAL IM ONE ×2 (05:22→05:30)
[2017-09-24 05:38] LABS: BASOPHILS % (AUTO) 0.1 % (0.0-2.0); EOSINOPHILS % (AUTO) 0.1 % (0.0-6.0); HEMATOCRIT 39 % (39-51); HEMOGLOBIN 12.7 g/dL (13.5-17.5); LYMPHOCYTES # (AUTO) 0.5 /CMM (0.8-4.8); LYMPHOCYTES % (AUTO) 2.4 % (20.0-44.0); MEAN CORPUSCULAR HGB CONC 33 g/dl (31.0-36.0); MEAN CORPUSCULAR VOLUME 99 fL (80-96); MONOCYTES # (AUTO) 3.6 /CMM (0.1-1.30); MONOCYTES % (AUTO) 19.7 % (2.0-12.0); NEUTROPHILS # (AUTO) 14.4 /CMM (1.8-8.9); NEUTROPHILS % (AUTO) 77.7 % (43.0-81.0); PLATELET COUNT (AUTO) 230 /CMM (150-450); RDW COEFFICIENT OF VARIATION 15.1 (11.5-15.0); RED BLOOD CELL COUNT(AUTO) 3.89 MIL/uL (4.5-6.0); WHITE BLOOD COUNT (AUTO) 18.5 K/uL (4.3-11.0)
[2017-09-24] MEDS ORDERED: NALOXONE PREFILLED SYRINGE 2 MG/2 ML SYRINGE ONE (05:42)
--- NOTE | 2017-09-24 05:46 | NUR ---
Sebastian Mc MD CALLED AT
[2017-09-24 05:48] LABS: CALCIUM, SERUM 9.2 mg/dL (8.5-10.1); CARBON DIOXIDE 30 mmol/L (21-32); CHLORIDE 106 mmol/L (98-107); CREATININE 1.5 mg/dL (0.6-1.3); GLUCOSE 110 mg/dL (74-106); SODIUM SERUM 142 mmol/L (136-145); UREA NITROGEN, BLOOD 33 mg/dL (7-18)
[2017-09-24 05:51] LABS: INR 0.94 (0.87-1.13)
--- NOTE | 2017-09-24 05:52 | NUR ---
Sebastian Mc MD is speaking with MD Bills
[2017-09-24 05:54] LABS: ALANINE AMINOTRANSFERASE 33 U/L (12-78); ALBUMIN 2.5 g/dL (3.4-5.0); ALKALINE PHOSPHATASE 59 U/L (46-116); ASPARTATE AMINOTRANSFERASE 31 U/L (15-37); BILIRUBIN,DIRECT 0.2 mg/dL (0.0-0.2); BILIRUBIN,TOTAL 0.5 mg/dL (0.2-1.0); TOTAL PROTEIN, SERUM 7.2 g/dL (6.4-8.2)
[2017-09-24 05:57] LABS: TROPONIN I 0.026 ng/mL (0.00-0.056)
[2017-09-24] MEDS ORDERED: NALOXONE HCL 0.4 MG/ML AMPUL IV ONE (06:00)
--- NOTE | 2017-09-24 06:18 | NUR ---
Note gilmarone in EDM - 09/24/17 at 0724 by ELADIO Patient does not wish to proceed with medical care recommended by Dr. RAE ). Patient given information related to possible complications, up to and including , which could occur as a result of leaving the hospital at this time. Patient verbalizes understanding of risks involved due to leaving against medical advice. Patient has signed AMA form.
[2017-09-24] MEDS ORDERED: FLUT16SP BNOSTRILS (08:50)
[2017-09-24] MEDS ORDERED: ISOS20TA8 PO (08:50)
[2017-09-24] MEDS ORDERED: CHOL100034 PO (08:50)
[2017-09-24] MEDS ORDERED: AMIO200T4 PO (08:50)
[2017-09-24] MEDS ORDERED: MULT-213 PO (08:50)
[2017-09-24] MEDS ORDERED: TICA90TA PO (08:50)
[2017-09-24] MEDS ORDERED: TEMA15CA PO (08:50)
[2017-09-24] MEDS ORDERED: CYAN10009 PO (08:50)
[2017-09-24] MEDS ORDERED: AMLO5TAB7 PO (08:50)
--- NOTE | 2017-09-24 09:27 | NUR ---
PT TRANSPORTED TO [facility]
[2017-09-24] MEDS ORDERED: FLUTICASONE PROPIONATE 16 GM BOTTLE NS PRN (09:30)
[2017-09-24] MEDS ORDERED: APIXABAN 2.5 MG TABLET PO SCH (09:30)
[2017-09-24] MEDS ORDERED: HYDROCODONE/APAP 5/325MG 1 EACH TABLET PO PRN (09:30)
[2017-09-24] MEDS: ATORVASTATIN 10 MG TABLET PO SCH ×2 (10:00→22:00)
[2017-09-24] MEDS ORDERED: MORPHINE SULFATE IR 15 MG TABLET PO SCH (10:00)
[2017-09-24 10:18] LABS: BAND % (MANUAL) 19 % (0.0-5.0); LYMPHOCYTES % (MANUAL) 3 % (16-48); METAMYELOCYTES % 2 % (0-0); MONOCYTES % (MANUAL) 11 % (0-11.0); NEUTROPHILS % (MANUAL) 65 (42-76)
[2017-09-24] MEDS: TICAGRELOR 90 MG TABLET PO SCH ×2 (10:30→16:08)
[2017-09-24 10:34] LABS: THYROID STIMULATING HORMONE 0.543 uIU/mL (0.358-3.74)
[2017-09-24] MEDS: AMLODIPINE BESYLATE 5 MG TABLET PO SCH (10:54)
[2017-09-24] MEDS: AMIODARONE HCL 200 MG TABLET PO SCH (10:54)
[2017-09-24] MEDS: GABAPENTIN 300 MG CAPSULE PO SCH ×3 (10:54→16:08)
[2017-09-24] MEDS: LamoTRIgine 25 MG TABLET PO SCH ×2 (10:54→16:08)
[2017-09-24] MEDS: ISOSORBIDE DINITRATE (20MG) 20 MG TABLET PO SCH ×3 (10:54→16:08)
[2017-09-24] MEDS: DIVALPROEX SODIUM 250 MG TABLET.DR PO SCH ×3 (10:54→16:08)
--- NOTE | 2017-09-24 10:55 | NUR ---
BRILENTA NOT ON FLOOR. WILL ADMIN WHEN AVAILABLE FROM PHARMACY. CALLED RT TO INFORM OF NEW BREATHING TREATMENT.
[2017-09-24] MEDS: LEVALBUTEROL HCL NEB 1.25 MG/0.5 ML VIAL.NEB IH SCH ×3 (11:21→23:30)
--- NOTE | 2017-09-24 11:25 | NUR ---
DR BURNHAM ON FLOOR. ASKED MD ABOUT TRIPLE ABX FOR SKIN TEARS, MD IN AGREEMENT. ORDER PLACED.
[2017-09-24] MEDS ORDERED: Z GUARD REMEDY 4 OZ OINT TP PRN (11:30)
[2017-09-24] MEDS ORDERED: NEOMY SULF/BACITRAC ZN/POLY 15 GM TUBE TP SCH (11:30)
--- NOTE | 2017-09-24 11:32 | NUR ---
ATTEMPTED ORTHOSTATIC VITALS. PT UNABLE TO STAND, VERY WEAK AT THIS TIME. WILL PLACE ORDER FOR ORTHOSTACTICS IN AM.
[2017-09-24] MEDS: IV NS 0.9% 1,000 ML IV PRN ×2 (11:58→23:09)
--- NOTE | 2017-09-24 12:13 | NUR ---
PT TOO LETHARGIC TO ADMIN MEDICATIONS AT THIS TIME. WILL INFORM .
--- NOTE | 2017-09-24 12:19 | NUR ---
APPLIED CONDOM CATH TO COLLECT URINE SAMPLE PER MD ORDER.
--- NOTE | 2017-09-24 12:47 | NUR ---
PT IS REFUSING 1300 MEDS. STATES "I JUST TOO THOSE." EXPLAINED THAT THE NEXT DOSE IS DUE, BUT PATIENT REFUSING. WILL FOLLOW UP.
[2017-09-24 15:54] VITALS: BP 138/70
--- NOTE | 2017-09-24 16:45 | NUR ---
WOUND CARE CONSULT. PATIENT PRESENTS WITH MULTIPLE SKIN TEARS ON BILATERAL UPPER ARMS POA, STATUS POST FALL. ALSO HAS POA BLANCHING REDNESS ON SACRUM AND MOISTURE RELATED REDNESS ON LEFT INNER THIGH AND GROIN. PATIENT IS INDEPENDENT WITH BED MOBILITY, ON A [employer] GEL MATRES. WOUND CARE TREATMENTS MADE AND MD IN AGREEMENT. WOUND SKIN CARE PLAN IN PLACE. GIOVANY 17. WILL CONTINUE TO FOLLOW NEEDED.
[2017-09-24 18:20] LABS: APPEARANCE,URINE CLEAR (CLEAR); BILIRUBIN,URINE NEGATIVE (NEGATIVE); BLOOD, URINE NEGATIVE Ery/uL (NEGATIVE); COLOR,URINE DARK YELLO (YELLOW); KETONES,URINE NEGATIVE (NEGATIVE); LEUKOCYTE ESTERASE ,URINE NEGATIVE (NEGATIVE); NITRITE, URINE NEGATIVE (NEGATIVE); PROTEIN,URINE 2+ mg/dl (NEGATIVE); UGLUCOSE NEGATIVE (NEGATIVE)
--- NOTE | 2017-09-24 18:22 | NUR ---
PT PULLED OUT IV. COVERED SITE WITH STERILE GAUZE. WILL INSERT NEW IV.
[2017-09-24 18:45] LABS: BACTERIA,URINE 1+ /HPF (None Seen); RBC,URINE 0-2 /HPF (0-2); SQUAMOUS EPITHELIAL CELL,UR 0-2 /HPF (None Seen)
--- NOTE | 2017-09-24 19:30 | NUR ---
AOC PLANS INTELLIGENCE OFFICER CHIEF OPENING NOTES: RECEIVED PATIENT IN BED, AOX1, LETHARGIC, SPEECH IS GARBLED. DENIES PAIN. ON O2 AT 6 LPM VIA SIMPLE FACE MASK, BREATHING AT RATE OF 28/MIN, BREATH SOUNDS CLEAR, BUT APPEARS LABORED, WITH SOME ACCESSORY MUSCLE USE. NO PIV AT THIS TIME, AM RN, KJ AT BEDSIDE, ATTEMPTING TO REINSERT AN IV LINE. BED IN LOWEST AND LOCKED POSITION, SIDERAILS UP X 3, BED ALARMS ON. ON TELE MONITOR : AFIB AT RATE OF 129. WILL CONT TO MONITOR.
--- NOTE | 2017-09-24 19:55 | NUR ---
PATIENT'S O2 SAT LOW AT 98%, TEMP: 100.1, BP: 121/62, HR: 130, RR AT 28/MIN. PATIENT LETHARGIC. ATTEMPTED TO INSERT IV LINE, CALLED RT, NOW AT BEDSIDE. PET SITTING CAME TO PUT NEW IV LINE OVER RAC G20. RESTARTED IV FLUIDS. RT PLACED PATIENT ON NON REBREATHER AT 15 LPM, O2 SAT INCREASED TO 82%. CALLED DR BURNHAM.
[2017-09-24 20:00] VITALS: BP 121/62
[2017-09-24 20:20] VITALS: BP 91/55
--- NOTE | 2017-09-24 20:20 | NUR ---
RT AT BEDSIDE, DEL BARRY PATIENT'S O2 SAT IS 88% ON NON REBREATHER AT 15 LPM. CHARGE NURSE AT BEDSIDE. BP CHECKED AT 91/55, HR: 129, RR: 27. TEMP: 100.1 Addendum: 09/24/17 at 2028 by ERIKA MCALLISTER RN PT ALSO STILL LETHARGIC.
--- NOTE | 2017-09-24 20:24 | NUR ---
DR BURNHAM PAGED AGAIN.
[2017-09-24 20:39] LABS: ABG BASE EXCESS -1.6 mmol/L; ABG OXYGEN SATURATION 90.6 % (92.0-98.5); ABG PCO2 54.2 mmHg (35.0-45.0); ABG PH 7.292 (7.350-7.450); ABG PO2 68.4 mmHg (75.0-100.0); MetHb 0.6 % (0.0-1.5); O2Hb 90.1 % (94.0-97.0); SITE, ABG Left Radial; VENT MODE, BG NON REBREATHER
--- NOTE | 2017-09-24 20:40 | NUR ---
ABG RESULTS CAME BACK PH: [phone], PCO2: 54.2, PO2: 68.4, HCO3: 25.6. DR BURNHAM PAGED FOR RESULTS, AWAITING CALL BACK. NSG SHAPER SETTER ALSO MADE AWARE.
--- NOTE | 2017-09-24 20:57 | NUR ---
DR BURNHAM CALLED BACK, WANTS PATIENT TO BE TRANSFERRED TO ICU. FURNACE SETTER INFORMED.
[2017-09-24] MEDS: MORPHINE SULFATE SR 15 MG TABLET.SA PO SCH (21:00)
--- NOTE | 2017-09-24 21:23 | NUR ---
PATIENT TRANSFERRED TO [facility] VIA ACLS PROTOCOL, ACCOMPANIED BY RN, ICER MACHINE AND BEHAVIORAL HEALTH WORKER. REPORT GIVEN TO CHARGE NURSE, ED.
--- NOTE | 2017-09-24 21:30 | NUR ---
HOSPICE REGISTERED NURSE NOTES RECEIVED PATIENT FROM 3W TRANSFER FOR RESPIRATORY DISTRESS, POSSIBLE INTUBATION. PATIENT ASSESSED. PER CHARGE NURSE ED, PATIENT DOES NOT NEED INTUBATION AT THIS TIME, MAY NEED BIPAP. CHARGE NURSE ED TO SPEAK TO DR BURNHAM. BREATHING LABORED WHILE ON O2 VIA NONREBREATHER MASK @ 15LPM. ON TELEMETRY MONITORING, REVEALING AFIB 120S. RIGHT AC IV PATENT AND INTACT, FLUSHED WITH NS, FREE FROM ANY S/S OF INFILTRATION OR PHLEBITIS. #20 RIGHT EJ INSERTED BY LITIGATION ASSOCIATE ED, SL. WILL INSERT KING CATHETER. HOB KEPT ELEVATED. WILL CONTINUE TO CLOSELY MONITOR
[2017-09-24] MEDS ORDERED: TEMAZEPAM 15 MG CAPSULE PO PRN (22:00)
[2017-09-24] MEDS: TRAZODONE 50 MG TABLET PO SCH (22:00)
[2017-09-24] MEDS: TAMSULOSIN 0.4 MG CAP.SR.24H PO SCH (22:00)
[2017-09-24 22:15] VITALS: BP 121/51
--- NOTE | 2017-09-24 22:45 | NUR ---
MILLWRIGHT SUPERVISOR NOTES CALLED AND SPOKE TO DR BURNHAM. MD MADE AWARE THAT PATIENT IS LETHARGIC AT THIS TIME, UNABLE TO SAFELY ADMINISTER PO MEDICATION. WITH NEW ORDERS: HOLD PO MEDS TONIGHT DUE TO INCREASED RISK OF ASPIRATION, OK TO INSERT KING CATHETER, TYLENOL SUPPOSITORY 650MG PRN FOR FEVER. ALL NEW ORDERS NOTED, WILL CARRY OUT
[2017-09-24] MEDS ORDERED: ACETAMINOPHEN 650 MG/SUPP.RECT RC PRN (23:00)
[2017-09-25] VITALS (51 sets, daily range): BP systolic 92–152; BP diastolic 51–103
--- NOTE | 2017-09-25 04:00 | NUR ---
GROUNDS RESTORATION SPECIALIST NOTES PATIENT NOTED TO WAKE UP INTERMITTENTLY, MORE ALERT COMPARED TO BASELINE THAN WHEN HE FIRST ARRIVED ON THE UNIT. PATIENT REORIENTED ABLE, BUT NOW REFUSING BIPAP INTERMITTENTLY. EXPLAINED RISKS AND CONSEQUENCES OF REFUSING BIPAP, INCLUDING INTUBATION AND POSSIBLY . RT JACIEL MADE AWARE. PATIENT GIVEN 5 MINUTE BREAK OFF BIPAP, THEN AGREED TO GO BACK ON BIPAP.
[2017-09-25 05:00] LABS: HEMATOCRIT 36 % (39-51); HEMOGLOBIN 12.3 g/dL (13.5-17.5); LYMPHOCYTES # (AUTO) 0.3 /CMM (0.8-4.8); LYMPHOCYTES % (AUTO) 2.2 % (20.0-44.0); MEAN CORPUSCULAR HGB CONC 34 g/dl (31.0-36.0); MEAN CORPUSCULAR VOLUME 101 fL (80-96); MONOCYTES % (AUTO) 26.7 % (2.0-12.0); NEUTROPHILS # (AUTO) 10.7 /CMM (1.8-8.9); NEUTROPHILS % (AUTO) 71.1 % (43.0-81.0); PLATELET COUNT (AUTO) 204 /CMM (150-450); RDW COEFFICIENT OF VARIATION 14.9 (11.5-15.0); RED BLOOD CELL COUNT(AUTO) 3.62 MIL/uL (4.5-6.0); WHITE BLOOD COUNT (AUTO) 15.1 K/uL (4.3-11.0)
[2017-09-25 05:11] LABS: TROPONIN I < 0.017 ng/mL (0.00-0.056)
[2017-09-25 05:13] LABS: ALANINE AMINOTRANSFERASE 22 U/L (12-78); ALBUMIN 1.8 g/dL (3.4-5.0); ALKALINE PHOSPHATASE 80 U/L (46-116); ASPARTATE AMINOTRANSFERASE 20 U/L (15-37); BILIRUBIN,TOTAL 0.4 mg/dL (0.2-1.0); CALCIUM, SERUM 8.6 mg/dL (8.5-10.1); CARBON DIOXIDE 26 mmol/L (21-32); CHLORIDE 112 mmol/L (98-107); CREATININE 1.5 mg/dL (0.6-1.3); GLUCOSE 106 mg/dL (74-106); MAGNESIUM 3.2 mg/dL (1.8-2.4); PHOSPHORUS 5.1 mg/dL (2.5-4.9); SODIUM SERUM 147 mmol/L (136-145); TOTAL PROTEIN, SERUM 5.5 g/dL (6.4-8.2); UREA NITROGEN, BLOOD 40 mg/dL (7-18)
[2017-09-25 05:16] LABS: BAND % (MANUAL) 14 % (0.0-5.0); LYMPHOCYTES % (MANUAL) 5 % (16-48); MONOCYTES % (MANUAL) 8 % (0-11.0); NEUTROPHILS % (MANUAL) 73 (42-76)
[2017-09-25] MEDS: IV NS 0.9% 1,000 ML IV PRN ×2 (06:45→16:43)
--- NOTE | 2017-09-25 06:56 | NUR ---
ROAD GRADER OPERATOR CLOSING NOTES PATIENT RESTING IN BED, APPEARS COMFORTABLE. PATIENT CONTINUES ON BIPAP. WILL ENDORSE THE PATIENT TO THE AM SHIFT NURSE FOR CONTINUITY OF CARE
[2017-09-25] MEDS: LEVALBUTEROL HCL NEB 1.25 MG/0.5 ML VIAL.NEB IH SCH (07:23)
--- NOTE | 2017-09-25 07:40 | NUR ---
ICU/RN: INITIAL NOTES,AM RECEIVED REPORT FROM NIGHT NURSE. PT RESTING IN BED, BIPAP TAKEN ON, ON NON REBREATHER MASK, ABG ORDERED FOR 0800. PT ON TELE, UNCONTROLLED A.FLUTTER. KING IN PLACE, DRAINING URINE. PIV'S PATENT AND INTACT, NO S/S OF INFECTION OR INFILTRATION NOTED.IV FLUIDS INFUSING ORDERED. WILL CONTINUED TO MONITOR, SAFETY MEASURES TAKEN, BED IN LOW POSITION, SIDE RAILS UP CALL LIGHT WITHIN REACH. WILL CONTINUE CARE.
--- NOTE | 2017-09-25 08:17 | NUR ---
WOUND CARE CONSULT: PT PRESENTS WITH DEEP TISSUE INJURY WHICH IS INTACT TO LEFT LATERAL KNEE, PRESENT ON ADMISSION WELL MULTIPLE BRUISES, LEFT ELBOW SKIN TEAR AND RT ARM DRY ABRASIONS. PT BECOMES AGITATED AT TIMES. PT IS INCONTINENT OF STOOL. ALL SKIN PROTECTION AND WOUND RECOMMENDATIONS DISCUSSED WITH NURSING STAFF. CURRENT GIOVANY SCORE IS 17. WILL SEE PRN. DRUMMOND IN AGREEMENT WITH PLAN OF CARE. Addendum: 09/25/17 at 0819 by ANJALI GARCIA WNDNU Amended: Links added.
[2017-09-25] MEDS: ISOSORBIDE DINITRATE (20MG) 20 MG TABLET PO SCH ×3 (08:18→17:03)
[2017-09-25] MEDS: LamoTRIgine 25 MG TABLET PO SCH ×2 (08:18→17:02)
[2017-09-25] MEDS: DIVALPROEX SODIUM 250 MG TABLET.DR PO SCH ×3 (08:18→17:02)
[2017-09-25] MEDS: AMLODIPINE BESYLATE 5 MG TABLET PO SCH (08:18)
[2017-09-25] MEDS: GABAPENTIN 300 MG CAPSULE PO SCH ×3 (08:19→17:02)
[2017-09-25] MEDS: AMIODARONE HCL 200 MG TABLET PO SCH (08:19)
[2017-09-25] MEDS: TICAGRELOR 90 MG TABLET PO SCH ×2 (08:20→17:05)
[2017-09-25] MEDS: FLUTICASONE PROPIONATE 16 GM BOTTLE NS SCH (08:20)
--- NOTE | 2017-09-25 08:20 | NUR ---
ICU/RN: PT SEEN BY WOUND NURSE. ORDERS RECEIVED. WILL FOLLOW THROUGH.
[2017-09-25] MEDS: LEVALBUTEROL HCL NEB 1.25 MG/0.5 ML VIAL.NEB NEB SCH ×3 (08:48→23:05)
[2017-09-25] MEDS: methylPREDNISolone SOD SUCC 125 MG/2ML VIAL IV SCH ×3 (09:43→17:02)
[2017-09-25] MEDS: MORPHINE SULFATE SR 15 MG TABLET.SA PO SCH ×2 (09:43→20:56)
[2017-09-25] MEDS ORDERED: FEE PK DOSING 1 MIN EA MC ONE (09:45)
[2017-09-25] MEDS: MEROPENEM 1 G in IV NS 0.9% 100 ML IV SCH ×2 (10:53→20:53)
[2017-09-25] MEDS: ACETYLCYSTEINE 10% SOLN 400 MG/4 ML VIAL NEB SCH ×3 (11:00→23:05)
[2017-09-25] MEDS: IPRATROPIUM NEB FS 0.5 MG/2.5 ML AMPUL.NEB NEB SCH ×3 (11:00→23:05)
[2017-09-25] MEDS: VANCOMYCIN 1 GM in IV D5W 250 ML IV SCH (11:42)
--- NOTE | 2017-09-25 11:50 | NUR ---
RT UNABLE TO GIVE RESP HHN PATIENT DESATS RAPIDLY AND IS UNABLE TO TAKE OFF NRB MASK. B/D DIM CLEAR. NO COMPLAINTS OF SOB. NO DISTRESS NOTED
--- NOTE | 2017-09-25 16:00 | NUR ---
ICU/RN: PT PLACED BACK ON BIPAP, COMPLAINING OF SOB. NEW SETTINGS ORDERED BY . WILL FOLLOW THROUGH.
--- NOTE | 2017-09-25 16:09 | NUR ---
PATIENT PLACED BACK ON BIPAP FOR COMPLAINTS OF SOB. PER DR YANG SETTINGS ADJUSTED Addendum: 09/25/17 at 1610 by QUINTIN CUI RT Amended: Links added.
[2017-09-25 18:07] LABS: ABG BASE EXCESS -0.5 mmol/L; ABG OXYGEN SATURATION 84.9 % (92.0-98.5); ABG PCO2 47.6 mmHg (35.0-45.0); ABG PH 7.347 (7.350-7.450); AaDO2 613.4 mmHg; COHb 0.3 % (0.5-1.5); MetHb 0.3 % (0.0-1.5); O2Hb 84.4 % (94.0-97.0); SITE, ABG Left Radial; VENT MODE, BG N/B MASK
--- NOTE | 2017-09-25 18:16 | NUR ---
ICU/RN: ENDING NOTES,AM REPORT WILL BE ENDORSED TO NIGHT NURSE FOR CONTINUATION OF CARE. PT ON BIPAP WITH SETTINGS ORDERED BY MD. NO ACUTE DISTRESS NOTED AT THIS TIME. PT A.FLUTTER/Jaspreet.FIB ON TELE. VSS. KING CATH IN PLACE, DRAINING YELLOW URINE. PIV'S PATENT AND INTACT, NO S/S OF INFECTION OR INFILTRATION NOTED AT THIS TIME. IV FLUIDS INFUSING ORDERED. PT BATHE, LINENS CHANGED, TURNED AND REPOSITIONED. WILL CONTINUE TO MONITOR AND AND CARE
[2017-09-25] MEDS: ATORVASTATIN 10 MG TABLET PO SCH (20:54)
[2017-09-25] MEDS: TAMSULOSIN 0.4 MG CAP.SR.24H PO SCH (20:55)
[2017-09-25] MEDS: TRAZODONE 50 MG TABLET PO SCH (20:55)
--- NOTE | 2017-09-25 22:00 | NUR ---
SECTION MAINTAINER - REC'D PT. ON BIPAP. SETTINGS ARE I:E=18/8, RATE OF 12 & 100%. O2 SATS ARE WNL. PT. HAS RHONCHI & EXP. WHEEZES AUSC. PT. ATTEMPTS TO REMOVE MASK FREQUENTLY. RN & RT EXPLAIN RATIONALE FREQUENTLY TO PT. HE VERBALIZED THAT HE UNDERSTANDS THAT THE VENT IS HIS NEXT OPTION. PT. WAS ABLE TO SWALLOW ALL PO MEDS IN A HIGH FOWLERS POSITION. PT. IS A&O X 2-3. PT. IS FORGETFUL SOMETIMES. HEART MONITOR SHOWS UNCONT.AFIB/ AFLUTTER. SBP'S ARE WNL. AFEBRILE. KING CATH TO GRAVITY W/GOOD UOP. PT. REQUESTED "A SLEEPING PILL". RESTORIL . UPON INITIAL ASSESSMENT, NOTED LFA INFILTRATION JUST STARTING. IV QUICKLY REMOVED, LFA ELEVATED W/HEAT PACK. RT.WRIST & LEFT HAND-BOTH 20 G WAS PLACED BY ELA:KIER BOILER. ALL PORTS ARE PATENT TO FLUSH. 0.9%NS INFUSING AT 125CC/HR. VIA IRIZARRY PUMP. NO EDEMA NOTED. JAFFE'S & ALL PULSES X 4 EXT. ARE PALPABLE. ALLERGIES NOTED. CONT.POC.
--- NOTE | 2017-09-25 22:50 | NUR ---
PT RECEIVED ON BIPAP. PT IS AWAKE ALERT. TOLERATING SETTINGS. SWITCH MASK TO UTN MED SIZE, PT MORE COMFORTABLE. BIPAP ALARMS SET AND AUDIBLE. WILL CONTINUE TO MONITOR. Addendum: 09/25/17 at 2252 by AMISHA DUNN RT Amended: Links added.
[2017-09-26] VITALS (34 sets, daily range): BP systolic 93–176; BP diastolic 57–124
[2017-09-26] MEDS: IV NS 0.9% 1,000 ML IV PRN ×3 (01:41→19:36)
[2017-09-26] MEDS: VANCOMYCIN 1 GM in IV D5W 250 ML IV SCH ×2 (03:43→22:02)
[2017-09-26 04:55] LABS: HEMATOCRIT 35 % (39-51); HEMOGLOBIN 11.6 g/dL (13.5-17.5); LYMPHOCYTES # (AUTO) 0.2 /CMM (0.8-4.8); MEAN CORPUSCULAR HGB CONC 33 g/dl (31.0-36.0); MEAN CORPUSCULAR VOLUME 102 fL (80-96); MONOCYTES # (AUTO) 1.7 /CMM (0.1-1.30); MONOCYTES % (AUTO) 15.5 % (2.0-12.0); NEUTROPHILS % (AUTO) 82.5 % (43.0-81.0); PLATELET COUNT (AUTO) 230 /CMM (150-450); RDW COEFFICIENT OF VARIATION 15.7 (11.5-15.0); RED BLOOD CELL COUNT(AUTO) 3.43 MIL/uL (4.5-6.0); WHITE BLOOD COUNT (AUTO) 10.9 K/uL (4.3-11.0)
[2017-09-26 05:24] LABS: ALANINE AMINOTRANSFERASE 22 U/L (12-78); ALBUMIN 1.7 g/dL (3.4-5.0); ALKALINE PHOSPHATASE 43 U/L (46-116); ASPARTATE AMINOTRANSFERASE 15 U/L (15-37); BILIRUBIN,TOTAL 0.4 mg/dL (0.2-1.0); CALCIUM, SERUM 8.6 mg/dL (8.5-10.1); CARBON DIOXIDE 26 mmol/L (21-32); CHLORIDE 114 mmol/L (98-107); CREATININE 1.6 mg/dL (0.6-1.3); GLUCOSE 159 mg/dL (74-106); MAGNESIUM 3.3 mg/dL (1.8-2.4); PHOSPHORUS 4.8 mg/dL (2.5-4.9); SODIUM SERUM 145 mmol/L (136-145); TOTAL PROTEIN, SERUM 5.9 g/dL (6.4-8.2); UREA NITROGEN, BLOOD 51 mg/dL (7-18)
[2017-09-26 05:31] LABS: TROPONIN I < 0.017 ng/mL (0.00-0.056)
--- NOTE | 2017-09-26 06:45 | NUR ---
AUDIOVISUAL EQUIPMENT OPERATOR - PT. REC'D COMP.BEDBATH AT 4AM. PT. TOLERATED WELL. PT. WENT RIGHT TO SLEEP AFTER BEDBATH. NO S/S OF DISTRESS OR DISCOMFORT. ALL IV'S ARE PATENT TO FLUSH. CONT.POC. AM VERBAL REPORT ENDORSED TO DESI WISDOM.
[2017-09-26] MEDS: IPRATROPIUM NEB FS 0.5 MG/2.5 ML AMPUL.NEB NEB SCH ×3 (07:20→23:34)
[2017-09-26] MEDS: LEVALBUTEROL HCL NEB 1.25 MG/0.5 ML VIAL.NEB NEB SCH ×3 (07:20→23:34)
[2017-09-26] MEDS: ACETYLCYSTEINE 10% SOLN 400 MG/4 ML VIAL NEB SCH ×3 (07:22→23:34)
--- NOTE | 2017-09-26 07:33 | NUR ---
ICU/RN: INITIAL NOTES,AM RECEIVED REPORT FROM NIGHT NURSE. PT RESTING IN BED, PT ON BIPAP, WITH SETTINGS ORDERED BY MD. UNEVENTFUL NIGHT. PT ON TELE, UNCONTROLLED A.FLUTTER. KING IN PLACE, DRAINING YELLOW URINE. PIV'S PATENT AND INTACT, NO S/S OF INFECTION OR INFILTRATION NOTED.IV FLUIDS INFUSING ORDERED. WILL CONTINUED TO MONITOR, SAFETY MEASURES TAKEN, BED IN LOW POSITION, SIDE RAILS UP CALL LIGHT WITHIN REACH. WILL CONTINUE CARE.
[2017-09-26 08:23] LABS: ABG BASE EXCESS -2.2 mmol/L; ABG OXYGEN SATURATION 93.1 % (92.0-98.5); ABG PCO2 47.1 mmHg (35.0-45.0); ABG PH 7.325 (7.350-7.450); ABG PO2 74.3 mmHg (75.0-100.0); AaDO2 446.7 mmHg; COHb 0.3 % (0.5-1.5); MetHb 0.5 % (0.0-1.5); O2Hb 92.4 % (94.0-97.0); SITE, ABG Left Radial; VENT MODE, BG ST 18/8 12
[2017-09-26] MEDS: MEROPENEM 1 G in IV NS 0.9% 100 ML IV SCH ×2 (09:00→21:11)
[2017-09-26] MEDS: MORPHINE SULFATE SR 15 MG TABLET.SA PO SCH ×2 (09:01→21:13)
[2017-09-26] MEDS: TICAGRELOR 90 MG TABLET PO SCH ×2 (09:01→18:06)
[2017-09-26] MEDS: methylPREDNISolone SOD SUCC 125 MG/2ML VIAL IV SCH ×3 (09:01→17:30)
[2017-09-26] MEDS: ISOSORBIDE DINITRATE (20MG) 20 MG TABLET PO SCH ×3 (09:02→17:30)
[2017-09-26] MEDS: AMIODARONE HCL 200 MG TABLET PO SCH (09:02)
[2017-09-26] MEDS: DIVALPROEX SODIUM 250 MG TABLET.DR PO SCH ×3 (09:02→17:30)
[2017-09-26] MEDS: NYSTATIN TOP POWDER 15 GM BOTTLE TP SCH ×2 (09:02→17:31)
[2017-09-26] MEDS: LamoTRIgine 25 MG TABLET PO SCH ×2 (09:02→17:30)
[2017-09-26] MEDS: GABAPENTIN 300 MG CAPSULE PO SCH ×3 (09:02→17:30)
[2017-09-26] MEDS: FLUTICASONE PROPIONATE 16 GM BOTTLE NS SCH (09:03)
[2017-09-26] MEDS: AMLODIPINE BESYLATE 5 MG TABLET PO SCH (09:04)
[2017-09-26 12:11] LABS: *SPE A/G RATIO 0.9 (0.7-1.7); *SPE ALPHA-1-GLOBULIN 0.6 g/dL (0.0-0.4); *SPE BETA GLOBULIN 0.8 g/dL (0.7-1.3); *SPE GLOBULIN, TOTAL 3.3 g/dL (2.2-3.9); *SPE M-SPIKE Not Observed g/dL (Not Observed); *SPEGAMMA GLOBULIN 0.9 g/dL (0.4-1.8)
--- NOTE | 2017-09-26 16:00 | NUR ---
ICU/RN: PT STATES HE WANTS AND PREFERS BIPAP MASK, FEELS LIKE HE CANT BREATH. RT PLACED PT BACK ON BIPAP WITH SETTINGS ORDERED BY MD. PRESSURE NOTED ON NOSE BRIDGE, NO BREAKDOWN AT THIS TIME. WILL CONTINUE TO MONITOR AND ASSESS.
--- NOTE | 2017-09-26 17:10 | NUR ---
PT PREFERS TO STAY ON NASAL BIPAP MASK, PRESSURE ON NOSE NOTED, BUT NO SKIN BREAKDOWN OR REDNESS. RN AWARE
[2017-09-26] MEDS: LACTOBACILLUS RHAMNOSUS GG 1 EACH CAP.SPRINK PO SCH (17:30)
--- NOTE | 2017-09-26 19:00 | NUR ---
RN INITIAL NOTES RECEIVED PT AWAKE ON BED. A/O 2-3. ON BIPAP WITH SETTINGS 18/8, RATE 12, FIO2 80%, SATURATING WELL, NO S/S OF RESP DISTRESS. CURRENTLY AFIB/AFLUTTER ON THE MONITOR, HR 120'S. KING CATH IS INTACT. LEFT HAND 20G IV WITH NS @ 125MLS/HR, FLUSHED AND PATENT, NO S/S OF INFILTRATION/INFECTION, DRESSING CDI. LEFT WRIST 20G LEAKS WHEN FLUSHED, WILL D/C. BED LOW AND LOCKED, SIDERAILS UP, CALL LIGHT WITHIN REACH. WILL MONITOR
[2017-09-26] MEDS: TRAZODONE 50 MG TABLET PO SCH (21:14)
[2017-09-26] MEDS: ATORVASTATIN 10 MG TABLET PO SCH (21:14)
[2017-09-26] MEDS: TAMSULOSIN 0.4 MG CAP.SR.24H PO SCH (21:14)
--- NOTE | 2017-09-26 21:28 | NUR ---
PT RECEIVED ON BIPAP. PT IS AWAKE ALERT. TOLERATING SETTINGS. UTN MED SIZE MASK IN PLACE. BIPAP ALARMS SET AND AUDIBLE. WILL CONTINUE TO MONITOR. Addendum: 09/26/17 at 2129 by AMISHA DUNN RT Amended: Links added.
[2017-09-27] VITALS (30 sets, daily range): BP systolic 119–171; BP diastolic 68–98
--- NOTE | 2017-09-27 03:39 | NUR ---
I WAS NOTIFIED BY RN THAT PT PULLED HIS BIPAP MASK OFF AND PT ACCIDENTLY SCRATCHED HIS RIGHT SIDE OF HIS NOSE. NOTICED LITTLE BLOOD. Addendum: 09/27/17 at 0342 by AMISHA DUNN RT Amended: Links added.
[2017-09-27] MEDS: IV NS 0.9% 1,000 ML IV PRN ×3 (04:16→20:31)
[2017-09-27 04:49] LABS: HEMATOCRIT 39 % (39-51); HEMOGLOBIN 12.9 g/dL (13.5-17.5); LYMPHOCYTES # (AUTO) 0.3 /CMM (0.8-4.8); LYMPHOCYTES % (AUTO) 1.4 % (20.0-44.0); MEAN CORPUSCULAR HGB CONC 34 g/dl (31.0-36.0); MEAN CORPUSCULAR VOLUME 100 fL (80-96); MONOCYTES % (AUTO) 10.6 % (2.0-12.0); PLATELET COUNT (AUTO) 267 /CMM (150-450); RDW COEFFICIENT OF VARIATION 15.3 (11.5-15.0); RED BLOOD CELL COUNT(AUTO) 3.85 MIL/uL (4.5-6.0); WHITE BLOOD COUNT (AUTO) 19.4 K/uL (4.3-11.0)
[2017-09-27 05:12] LABS: TROPONIN I < 0.017 ng/mL (0.00-0.056)
[2017-09-27 05:22] LABS: ALANINE AMINOTRANSFERASE 26 U/L (12-78); ALKALINE PHOSPHATASE 54 U/L (46-116); ASPARTATE AMINOTRANSFERASE 23 U/L (15-37); BILIRUBIN,TOTAL 0.4 mg/dL (0.2-1.0); CALCIUM, SERUM 9.4 mg/dL (8.5-10.1); CARBON DIOXIDE 27 mmol/L (21-32); CHLORIDE 114 mmol/L (98-107); CREATININE 1.4 mg/dL (0.6-1.3); GLUCOSE 134 mg/dL (74-106); MAGNESIUM 2.8 mg/dL (1.8-2.4); PHOSPHORUS 4.2 mg/dL (2.5-4.9); POTASSIUM 4.9 mmol/L (3.5-5.1); SODIUM SERUM 147 mmol/L (136-145); TOTAL PROTEIN, SERUM 6.9 g/dL (6.4-8.2); UREA NITROGEN, BLOOD 53 mg/dL (7-18)
[2017-09-27 05:31] LABS: BAND % (MANUAL) 4 % (0.0-5.0); LYMPHOCYTES % (MANUAL) 3 % (16-48); METAMYELOCYTES % 1 % (0-0); MONOCYTES % (MANUAL) 11 % (0-11.0); MYELOCYTES % 2 % (0-0); NEUTROPHILS % (MANUAL) 79 (42-76)
--- NOTE | 2017-09-27 06:00 | NUR ---
RN CLOSING NOTES PT REMAINS ON BIPAP BUT OTHERWISE STABLE. ALL DUE MEDS GIVEN, AM CARE PROVIDED. WILL ENDORSE LAURO TO AM RN
[2017-09-27] MEDS: IPRATROPIUM NEB FS 0.5 MG/2.5 ML AMPUL.NEB NEB SCH ×3 (07:24→23:30)
[2017-09-27] MEDS: LEVALBUTEROL HCL NEB 1.25 MG/0.5 ML VIAL.NEB NEB SCH ×3 (07:24→23:30)
[2017-09-27] MEDS: ACETYLCYSTEINE 10% SOLN 400 MG/4 ML VIAL NEB SCH ×3 (07:24→23:30)
--- NOTE | 2017-09-27 07:30 | NUR ---
FLOW TRADER RECEIVED PATIENT ON BIPAP ON 80% FIO2 SATURATING 80% ALERT AWAKE X 3 AFEBRILE SINUS TACHYCARDIA NOTED ON THE MONITOR WITH BBB ON CONTINUOUS IVF THERAPY MONTIORED CLOSELY WITH KING CATHETER DRAINING TO A YELLOWISH URINE ADEQUATE IN AMOUNT Addendum: 09/27/17 at 0835 by CATHY RAMIREZ RN WRONG ENTRY ON CARDIAC ASSESSMENT ATRIAL FIBRILLATION UNCONTROLLED WITH BBB
--- NOTE | 2017-09-27 08:10 | NUR ---
PATIENT REMOVED FROM BIPAP PLACED ON NRB MASK PETER WELL. NURSE AWARE
--- NOTE | 2017-09-27 08:10 | NUR ---
PROGRAM INSTRUCTOR PLACED PATIENT ON NON REBREATHER 15 LITERS MONITORED CLOSELY
[2017-09-27] MEDS: MORPHINE SULFATE SR 15 MG TABLET.SA PO SCH ×2 (08:40→21:32)
[2017-09-27] MEDS: methylPREDNISolone SOD SUCC 125 MG/2ML VIAL IV SCH ×3 (08:40→16:34)
[2017-09-27] MEDS: MEROPENEM 1 G in IV NS 0.9% 100 ML IV SCH ×2 (08:41→20:26)
[2017-09-27] MEDS: TICAGRELOR 90 MG TABLET PO SCH ×2 (08:42→16:35)
[2017-09-27] MEDS: ISOSORBIDE DINITRATE (20MG) 20 MG TABLET PO SCH ×3 (08:42→16:35)
[2017-09-27] MEDS: AMIODARONE HCL 200 MG TABLET PO SCH (08:42)
[2017-09-27] MEDS: LACTOBACILLUS RHAMNOSUS GG 1 EACH CAP.SPRINK PO SCH ×2 (08:42→16:35)
[2017-09-27] MEDS: GABAPENTIN 300 MG CAPSULE PO SCH ×3 (08:43→16:35)
[2017-09-27] MEDS: DIVALPROEX SODIUM 250 MG TABLET.DR PO SCH ×3 (08:43→16:36)
[2017-09-27] MEDS: AMLODIPINE BESYLATE 5 MG TABLET PO SCH (08:45)
[2017-09-27] MEDS: LamoTRIgine 25 MG TABLET PO SCH ×2 (08:46→16:35)
[2017-09-27] MEDS: FLUTICASONE PROPIONATE 16 GM BOTTLE NS SCH (08:47)
[2017-09-27] MEDS: NYSTATIN TOP POWDER 15 GM BOTTLE TP SCH ×2 (08:47→16:45)
--- NOTE | 2017-09-27 10:00 | NUR ---
HAND SPLITTER PATIENT IS NON COMPLIANT KEEPS ON REMOVING HIS MASK, SATURATION IS DROPPING KEEPS ON PUTTING MASK ON BUT PATIENT KEEPS ON REMOVING IT MONITORED CLOSELY
--- NOTE | 2017-09-27 14:13 | NUR ---
DECORATING SUPERVISOR PATIENT KEEPS ON DESATURATING, PLACED PATIENT BACK ON BIPAP
--- NOTE | 2017-09-27 15:23 | NUR ---
PATIENT RIPPED OFF BIPAP REFUSING TO COOPERATE. PATIENT PLACED BACK ON NRB MASK.
[2017-09-27] MEDS: VANCOMYCIN 1 GM in IV D5W 250 ML IV SCH (16:44)
--- NOTE | 2017-09-27 19:00 | NUR ---
RN INITIAL NOTES RECEIVED PT AWAKE ON BED. A/O 2-3. ON BIPAP WITH SETTINGS 18/8, RATE 12, FIO2 100%, SATURATING WELL, NO S/S OF RESP DISTRESS. CURRENTLY AFIB/AFLUTTER ON THE MONITOR, HR 120'S. KING CATH IS INTACT. LEFT HAND 20G IV WITH NS @ 125MLS/HR, FLUSHED AND PATENT, NO S/S OF INFILTRATION/INFECTION, DRESSING CDI. BED LOW AND LOCKED, SIDERAILS UP, CALL LIGHT WITHIN REACH. WILL MONITOR
--- NOTE | 2017-09-27 19:54 | NUR ---
PT RECEIVED ON BIPAP. PT IS AWAKE. TOLERATING BIPAP SETTINGS. NO RESP DISTRESS NOTED. WILL CONTINUE TO MONITOR. Addendum: 09/27/17 at 1959 by AMISHA DUNN RT Amended: Links added.
[2017-09-27] MEDS: ATORVASTATIN 10 MG TABLET PO SCH (21:32)
[2017-09-27] MEDS: TAMSULOSIN 0.4 MG CAP.SR.24H PO SCH (21:33)
[2017-09-27] MEDS: TRAZODONE 50 MG TABLET PO SCH (21:33)
[2017-09-28] VITALS (30 sets, daily range): BP systolic 110–168; BP diastolic 70–107
[2017-09-28] MEDS: IV NS 0.9% 1,000 ML IV PRN (04:44)
[2017-09-28 04:53] LABS: CALCIUM, SERUM 8.7 mg/dL (8.5-10.1); CARBON DIOXIDE 26 mmol/L (21-32); CHLORIDE 119 mmol/L (98-107); CREATININE 1.2 mg/dL (0.6-1.3); GLUCOSE 144 mg/dL (74-106); POTASSIUM 5.2 mmol/L (3.5-5.1); SODIUM SERUM 151 mmol/L (136-145); UREA NITROGEN, BLOOD 51 mg/dL (7-18)
--- NOTE | 2017-09-28 06:20 | NUR ---
RN CLOSING NOTES PT REMAINS ON BIPAP BUT OTHERWISE STABLE. ALL DUE MEDS GIVEN, AM CARE PROVIDED. WILL ENDORSE LAURO TO AM RN
--- NOTE | 2017-09-28 07:30 | NUR ---
JEWEL INSERTER RECEIVED PATIENT AWAKE SITTING ON BED AWAKE ALERT ORIENTED X 3 ON BIPAP SATURATING 98% ATRIAL FIBRILLATION/FLUTTER NOTED ON MONITOR STILL HAVING SHORTNESS OF BREATH WHEN EATING AND DRINKING WATER BLOOD PRESSURE ELEVATED WITH KING CATHETER DRAINING TO YELLOWISH URINE ADEQUATE IN AMOUNT MONITORED CLOSELY
[2017-09-28] MEDS: LEVALBUTEROL HCL NEB 1.25 MG/0.5 ML VIAL.NEB NEB SCH ×3 (07:35→23:50)
[2017-09-28] MEDS: ACETYLCYSTEINE 10% SOLN 400 MG/4 ML VIAL NEB SCH ×3 (07:35→23:50)
[2017-09-28] MEDS: IPRATROPIUM NEB FS 0.5 MG/2.5 ML AMPUL.NEB NEB SCH ×3 (07:35→23:50)
--- NOTE | 2017-09-28 08:00 | NUR ---
ASBESTOS SIDING INSTALLER PATIENT PLACED ON NON REBREATHER WITH SATURATION AT 97% STILL HAVING SHORTNESS OF BREATH ON EXERTION MAINTAINED ON NON REBREATHER AND MONITORED CLOSELY
[2017-09-28] MEDS: LamoTRIgine 25 MG TABLET PO SCH ×2 (08:45→16:55)
[2017-09-28] MEDS: GABAPENTIN 300 MG CAPSULE PO SCH ×3 (08:45→16:55)
[2017-09-28] MEDS: MEROPENEM 1 G in IV NS 0.9% 100 ML IV SCH ×2 (08:45→21:43)
[2017-09-28] MEDS: AMLODIPINE BESYLATE 5 MG TABLET PO SCH (08:45)
[2017-09-28] MEDS: ISOSORBIDE DINITRATE (20MG) 20 MG TABLET PO SCH ×3 (08:45→16:55)
[2017-09-28] MEDS: DIVALPROEX SODIUM 250 MG TABLET.DR PO SCH ×3 (08:45→16:55)
[2017-09-28] MEDS: TICAGRELOR 90 MG TABLET PO SCH ×2 (08:49→17:05)
[2017-09-28] MEDS: methylPREDNISolone SOD SUCC 125 MG/2ML VIAL IV SCH ×3 (08:50→16:54)
[2017-09-28] MEDS: NYSTATIN TOP POWDER 15 GM BOTTLE TP SCH ×2 (09:05→16:55)
[2017-09-28] MEDS: FLUTICASONE PROPIONATE 16 GM BOTTLE NS SCH (09:05)
[2017-09-28] MEDS: MORPHINE SULFATE SR 15 MG TABLET.SA PO SCH ×2 (09:05→21:45)
[2017-09-28] MEDS: LACTOBACILLUS RHAMNOSUS GG 1 EACH CAP.SPRINK PO SCH ×2 (09:14→16:54)
[2017-09-28] MEDS: AMIODARONE HCL 200 MG TABLET PO SCH (09:14)
[2017-09-28] MEDS: VANCOMYCIN 1 GM in IV D5W 250 ML IV SCH (09:58)
[2017-09-28] MEDS: IV D5W 1,000 ML IV PRN (16:55)
--- NOTE | 2017-09-28 20:00 | NUR ---
RN INITIAL NOTES RECEIVED PT AWAKE ON BED. A/O 2-3. ON BIPAP WITH SETTINGS 18/8, RATE 12, FIO2 100%, SATURATING WELL, NO S/S OF RESP DISTRESS. CURRENTLY AFIB/AFLUTTER ON THE MONITOR, HR 120'S. KING CATH IS INTACT. LEFT HAND 20G IV WITH NS @ 125MLS/HR, FLUSHED AND PATENT, NO S/S OF INFILTRATION/INFECTION, DRESSING CDI. BED LOW AND LOCKED, SIDERAILS UP, CALL LIGHT WITHIN REACH. WILL CONT TO MONITOR Addendum: 09/29/17 at 0138 by GIULIANA CAT RN FIO2 40%. Received pt with facial wound around area of bipap as noted by RT.
--- NOTE | 2017-09-28 20:01 | NUR ---
PT RECEIVED ON BIPAP. TOLERATING SETTINGS. PT IS ALERT AND AWAKE. FACIAL WOUND NOTED ALYX GIORDANO NOTIFIED. BIPAP ALARMS SET AND AUDIBLE. WILL CONTINUE TO MONITOR.
[2017-09-28] MEDS: TAMSULOSIN 0.4 MG CAP.SR.24H PO SCH (21:43)
[2017-09-28] MEDS: ATORVASTATIN 10 MG TABLET PO SCH (21:46)
[2017-09-28] MEDS: TRAZODONE 50 MG TABLET PO SCH (21:55)
[2017-09-29] VITALS (29 sets, daily range): BP systolic 120–189; BP diastolic 64–109
[2017-09-29] MEDS: VANCOMYCIN 1 GM in IV D5W 250 ML IV SCH ×2 (05:15→22:01)
[2017-09-29 05:16] LABS: HEMATOCRIT 36 % (39-51); HEMOGLOBIN 12.2 g/dL (13.5-17.5); LYMPHOCYTES # (AUTO) 0.3 /CMM (0.8-4.8); LYMPHOCYTES % (AUTO) 1.4 % (20.0-44.0); MEAN CORPUSCULAR HGB CONC 34 g/dl (31.0-36.0); MEAN CORPUSCULAR VOLUME 99 fL (80-96); NEUTROPHILS # (AUTO) 22.5 /CMM (1.8-8.9); NEUTROPHILS % (AUTO) 90.6 % (43.0-81.0); PLATELET COUNT (AUTO) 244 /CMM (150-450); RDW COEFFICIENT OF VARIATION 15.5 (11.5-15.0); WHITE BLOOD COUNT (AUTO) 24.9 K/uL (4.3-11.0)
[2017-09-29] MEDS: IV D5W 1,000 ML IV PRN (05:27)
[2017-09-29 05:54] LABS: CALCIUM, SERUM 8.8 mg/dL (8.5-10.1); CARBON DIOXIDE 24 mmol/L (21-32); CHLORIDE 116 mmol/L (98-107); CREATININE 1.1 mg/dL (0.6-1.3); GLUCOSE 157 mg/dL (74-106); MAGNESIUM 2.4 mg/dL (1.8-2.4); POTASSIUM 4.4 mmol/L (3.5-5.1); SODIUM SERUM 150 mmol/L (136-145); UREA NITROGEN, BLOOD 48 mg/dL (7-18)
[2017-09-29] MEDS ORDERED: AMIODARONE 150 MG in IV D5W 100 ML IV ONE (07:00)
[2017-09-29] MEDS ORDERED: AMIODARONE 900 MG in IV D5W 500 ML IV PRN (07:00)
--- NOTE | 2017-09-29 07:30 | NUR ---
ROVING DEPARTMENT SUPERVISOR RECEIVED PATIENT ON A BIPAP WITH SATURATION 98% ALERT ORIENTED X 3, WITH CONFUSION EPISODES AFERBILE (+) PRODUCTIVE COUGH YELLOWISH IN COLOR, THICK , SMALL IN AMOUNT DYSPNEA ON EXERTION ABLE TO CONSUME ADEQUATE AMOUNT OF MEAL WITH GOOD APPETITE WITH KING CATHETER DRAINING TO YELLOWISH URINE SMALL IN AMOUNT Addendum: 09/29/17 at 1252 by CATHY RAMIREZ RN SEEN AND EXAMINED BY DR. GRIMM WITH NEW ORDERS MADE AND CARRIED
[2017-09-29] MEDS: LEVALBUTEROL HCL NEB 1.25 MG/0.5 ML VIAL.NEB NEB SCH ×2 (07:35→16:09)
[2017-09-29] MEDS: IPRATROPIUM NEB FS 0.5 MG/2.5 ML AMPUL.NEB NEB SCH ×2 (07:35→16:09)
[2017-09-29] MEDS: ACETYLCYSTEINE 10% SOLN 400 MG/4 ML VIAL NEB SCH ×2 (07:35→16:09)
[2017-09-29] MEDS: hydrALAZINE HCL IV 20 MG VIAL IV PRN ×2 (07:41→13:05)
--- NOTE | 2017-09-29 08:00 | NUR ---
ELECTRONIC OPERATOR PLACED PATIENT ON NON REBREATHER MASK , TOLERATING WELL 96% SATURATION Addendum: 09/29/17 at 1253 by CATHY RAMIREZ RN WILL START AMIODARONE BOLUS, AWAITING PHARMACY TO BRING MEDICATION
[2017-09-29] MEDS ORDERED: AMIODARONE 900 MG in IV D5W 482 ML IV PRN (08:30)
[2017-09-29] MEDS: DIVALPROEX SODIUM 250 MG TABLET.DR PO SCH ×3 (08:48→16:16)
[2017-09-29] MEDS: LamoTRIgine 25 MG TABLET PO SCH ×2 (08:48→16:16)
[2017-09-29] MEDS: TICAGRELOR 90 MG TABLET PO SCH ×2 (08:48→16:16)
[2017-09-29] MEDS: MEROPENEM 1 G in IV NS 0.9% 100 ML IV SCH ×2 (08:48→22:00)
[2017-09-29] MEDS: methylPREDNISolone SOD SUCC 125 MG/2ML VIAL IV SCH ×2 (08:48→13:01)
[2017-09-29] MEDS: LACTOBACILLUS RHAMNOSUS GG 1 EACH CAP.SPRINK PO SCH ×2 (08:48→16:21)
[2017-09-29] MEDS: FLUTICASONE PROPIONATE 16 GM BOTTLE NS SCH (08:48)
[2017-09-29] MEDS: AMLODIPINE BESYLATE 5 MG TABLET PO SCH (08:49)
[2017-09-29] MEDS: NYSTATIN TOP POWDER 15 GM BOTTLE TP SCH ×2 (08:49→16:21)
[2017-09-29] MEDS: GABAPENTIN 300 MG CAPSULE PO SCH ×3 (08:49→16:16)
[2017-09-29] MEDS: ISOSORBIDE DINITRATE (20MG) 20 MG TABLET PO SCH ×3 (09:19→16:16)
[2017-09-29 09:51] LABS: BAND % (MANUAL) 1 % (0.0-5.0); LYMPHOCYTES % (MANUAL) 2 % (16-48); MONOCYTES % (MANUAL) 17 % (0-11.0); NEUTROPHILS % (MANUAL) 80 (42-76)
[2017-09-29] MEDS: MORPHINE SULFATE SR 15 MG TABLET.SA PO SCH ×2 (10:30→22:00)
[2017-09-29] MEDS: NEOMY SULF/BACITRAC ZN/POLY 15 GM TUBE TP SCH ×2 (13:10→22:02)
--- NOTE | 2017-09-29 13:23 | NUR ---
WOUND CARE CONSULT REQUESTED BY NURSING TO EVALUATE NASAL BRIDGE. PATIENT SEEN, NASAL BRIDGE EVALUATED, ULCER CLEANSED WITH NS, DRIED BLOOD NOTED TO AIXA WOUND REGION, ULCER MEASURES 2CM X 1CM X 0.1, STAGE 2 BIPAP DEVICE RELATED. THERE IS NO CARTILAGE EXPOSED AT THIS TIME. TMT RECOMMENDATIONS MADE, DISCUSSED WITH PRIMARY MD AND ME IN AGREEMENT. ALL DISCUSSED WITH NURSING AT THE BEDSIDE. WOUND CARE WILL CONTINUE TO MONITOR. ALL PRESSURE ULCER PREVENTION MEASURES CONTINUE TO BE IN PLACE AT THIS TIME. Addendum: 09/29/17 at 1327 by JORDAN GAMEZ WNDNU Amended: Links added.
[2017-09-29] MEDS: methylPREDNISolone SOD SUCC 40 MG/ML VIAL IV SCH (16:20)
--- NOTE | 2017-09-29 17:51 | NUR ---
RESEARCH PROGRAM COORDINATOR DEEP SUCTIONING DONE BY RT
--- NOTE | 2017-09-29 19:40 | NUR ---
RN NOTE RECEIVED ENDORSEMENT FROM AM SHIFT NURSE. PATIENT OBSERVED TO BE ALERT AND ORIENTED. DENIES ANY PAIN AND DISCOMFORT. RECEIVED WITH PATIENT ON NRB, PATIENT SATURATING WELL AT 98%. ON AMIO GTT AT 0.5mg/min = 16.66ml/hr. PATIENT REMAINS TO BE IN AFIB, HR AT 130s. F/C IN PLACE, DRAINING WITH CLEAR, YELLOW URINE. REPOSITIONED PATIENT FOR COMFORT. NEEDS ANTICIPATED AND MET. SAFETY AND COMFORT ENSURED. BED IN LOW AND LOCKED POSITION. WILL MONITOR CLOSELY.
--- NOTE | 2017-09-29 21:47 | NUR ---
RT PT ON PLACED ON BIPAP, WITH NOTED SETTING. PT TOLERATING SETTING WELL. SMALL RIGHT NOSE DAMAGE NOTICE PRIOR TO BIPAP RN AWARE Addendum: 09/29/17 at 2147 by DAVY GIL RT Amended: Links added.
[2017-09-29] MEDS: TAMSULOSIN 0.4 MG CAP.SR.24H PO SCH (22:00)
[2017-09-29] MEDS: TRAZODONE 50 MG TABLET PO SCH (22:00)
--- NOTE | 2017-09-29 22:00 | NUR ---
RN NOTES PATIENT PLACED BY RT ON BIPAP. PATIENT WITH NO ACUTE DISTRESS. TOLERATED CURRENT BIPAP SETTINGS. PLACED MEPILEX ON NASAL BRIDGE FOR CUSHION AND MANAGEMENT OF THE NOTED PRESSURE SORE STAGE 2. HS MEDS GIVEN ORDERED, ASPIRATION PRECAUTION OBSERVED. VANCO TROUGH 15, VANCO TO BE ADMINISTERED ORDERED. INSERTED NEW IV SITE , DONE BY CHARGE NURSE D/T MARQUISE IS INCOMPATIBLE WITH AMIO GTT. WILL MONITOR CLOSELY.
[2017-09-29] MEDS ORDERED: PIPERACILLIN /TAZOBACTAM 3.375 G VIAL IV ONE (23:49)
[2017-09-29] MEDS: PIPERACILLIN /TAZOBACTAM 3.375 G in IV D5W 50 ML IV SCH (23:51)
[2017-09-30] VITALS (27 sets, daily range): BP systolic 108–175; BP diastolic 61–139
[2017-09-30] MEDS: LEVALBUTEROL HCL NEB 1.25 MG/0.5 ML VIAL.NEB NEB SCH ×4 (00:04→23:44)
[2017-09-30] MEDS: ACETYLCYSTEINE 10% SOLN 400 MG/4 ML VIAL NEB SCH ×4 (00:04→23:44)
[2017-09-30] MEDS: IPRATROPIUM NEB FS 0.5 MG/2.5 ML AMPUL.NEB NEB SCH ×4 (00:04→23:44)
[2017-09-30 05:07] LABS: BASOPHILS # (AUTO) 0.2 /CMM (0.0-0.2); BASOPHILS % (AUTO) 0.9 % (0.0-2.0); HEMATOCRIT 33 % (39-51); LYMPHOCYTES # (AUTO) 3.5 /CMM (0.8-4.8); LYMPHOCYTES % (AUTO) 13.9 % (20.0-44.0); MEAN CORPUSCULAR HGB CONC 33 g/dl (31.0-36.0); MEAN CORPUSCULAR VOLUME 100 fL (80-96); MONOCYTES # (AUTO) 0.2 /CMM (0.1-1.30); MONOCYTES % (AUTO) 0.7 % (2.0-12.0); NEUTROPHILS # (AUTO) 21.4 /CMM (1.8-8.9); NEUTROPHILS % (AUTO) 84.5 % (43.0-81.0); PLATELET COUNT (AUTO) 197 /CMM (150-450); RDW COEFFICIENT OF VARIATION 15.4 (11.5-15.0); RED BLOOD CELL COUNT(AUTO) 3.35 MIL/uL (4.5-6.0); WHITE BLOOD COUNT (AUTO) 25.3 K/uL (4.3-11.0)
[2017-09-30 05:42] LABS: ALANINE AMINOTRANSFERASE 30 U/L (12-78); ALBUMIN 1.5 g/dL (3.4-5.0); ALKALINE PHOSPHATASE 44 U/L (46-116); ASPARTATE AMINOTRANSFERASE 29 U/L (15-37); BILIRUBIN,TOTAL 0.5 mg/dL (0.2-1.0); CALCIUM, SERUM 8.5 mg/dL (8.5-10.1); CARBON DIOXIDE 24 mmol/L (21-32); CHLORIDE 116 mmol/L (98-107); CREATININE 1.1 mg/dL (0.6-1.3); GLUCOSE 146 mg/dL (74-106); MAGNESIUM 2.3 mg/dL (1.8-2.4); PHOSPHORUS 4.5 mg/dL (2.5-4.9); POTASSIUM 4.7 mmol/L (3.5-5.1); SODIUM SERUM 148 mmol/L (136-145); TOTAL PROTEIN, SERUM 4.8 g/dL (6.4-8.2); UREA NITROGEN, BLOOD 46 mg/dL (7-18)
[2017-09-30 05:50] LABS: LYMPHOCYTES % (MANUAL) 9 % (16-48); MONOCYTES % (MANUAL) 1 % (0-11.0); MYELOCYTES % 5 % (0-0); NEUTROPHILS % (MANUAL) 83 (42-76)
[2017-09-30 05:51] LABS: METAMYELOCYTES % 2 % (0-0)
[2017-09-30] MEDS ORDERED: PIPERACILLIN /TAZOBACTAM 3.375 G VIAL IV ONE (06:14)
[2017-09-30] MEDS: PIPERACILLIN /TAZOBACTAM 3.375 G in IV D5W 50 ML IV SCH ×2 (06:15→12:22)
--- NOTE | 2017-09-30 06:31 | NUR ---
RN NOTES PATIENT WITH NO ACUTE CHANGE IN CONDITION OBSERVED OVERNIGHT. PATIENT REMAINS STABLE AND IN NO DISTRESS. TOLERATED BIPAP WELL, STILL ON BIPAP AT THIS TIME AND SLEEPING COMFORTABLY. AMIO GTT RUNNING ORDERED AT 0.5mg/min. PATIENT AT THIS TIME IS AFLUTTER WITH HR AT 80s. ALL DUE MEDS GIVEN ORDERED. F/C INTACT AND DRAINING WELL. KEPT PATIENT CLEAN AND DRY. WOUND TREATMENT ORDERED. NEEDS ANTICIPATED AND MET. SAFETY AND COMFORT ENSURED. CALL LIGHT IN REACH. WILL ENDORSE ACCORDINGLY FOR CONTINUITY OF CARE.
[2017-09-30] MEDS: methylPREDNISolone SOD SUCC 40 MG/ML VIAL IV SCH (08:31)
[2017-09-30] MEDS: MEROPENEM 1 G in IV NS 0.9% 100 ML IV SCH ×2 (08:32→17:40)
[2017-09-30] MEDS: ISOSORBIDE DINITRATE (20MG) 20 MG TABLET PO SCH ×3 (08:33→17:40)
[2017-09-30] MEDS: AMLODIPINE BESYLATE 5 MG TABLET PO SCH (08:34)
[2017-09-30] MEDS: GABAPENTIN 300 MG CAPSULE PO SCH ×3 (08:36→17:36)
[2017-09-30] MEDS: LamoTRIgine 25 MG TABLET PO SCH ×2 (08:36→17:39)
[2017-09-30] MEDS: DIVALPROEX SODIUM 250 MG TABLET.DR PO SCH ×3 (08:36→17:39)
[2017-09-30] MEDS: MORPHINE SULFATE SR 15 MG TABLET.SA PO SCH ×2 (08:36→21:02)
[2017-09-30] MEDS: TICAGRELOR 90 MG TABLET PO SCH ×2 (08:36→17:35)
[2017-09-30] MEDS: LACTOBACILLUS RHAMNOSUS GG 1 EACH CAP.SPRINK PO SCH ×2 (08:36→17:39)
[2017-09-30] MEDS: NYSTATIN TOP POWDER 15 GM BOTTLE TP SCH ×4 (08:39→17:43)
[2017-09-30] MEDS: FLUTICASONE PROPIONATE 16 GM BOTTLE NS SCH (08:40)
[2017-09-30] MEDS: NEOMY SULF/BACITRAC ZN/POLY 15 GM TUBE TP SCH ×2 (08:41→21:03)
--- NOTE | 2017-09-30 09:00 | NUR ---
PATIENT AMIODARONE DRIP TURNED OFF, AND PATIENT HR IS RUNNING TO 110 PER MINUTE. WILL CONTINUE TO OBSERVE HR AND NEED TO VERIFY PO DOSE OF AMIODARONE.\ STEPHANIE AMATO RN
--- NOTE | 2017-09-30 12:00 | NUR ---
PATIENT HR IS UNCONTROLLED ATRIAL FIBRILLATION. AMIODARONE DRIP DISCONTINUED AT 0900, AND WILL START ON PO AMIODARONE AT 1PM. STEPHANIE AMATO RN
[2017-09-30] MEDS: AMIODARONE HCL 200 MG TABLET PO SCH ×2 (12:24→17:38)
--- NOTE | 2017-09-30 14:00 | NUR ---
PATIENT IS ON 02 NRB MASK, AND PATIENT DOES HAVE GOOD 02 SAT WHEN O2 MASK STAYS IN PLACE. STEPHANIE AMATO RN
--- NOTE | 2017-09-30 16:00 | NUR ---
PATIENT RECEIVING IV ANTIBIOTICS AROUND THE CLOCK/ THE PATIENT IS WAITING FOR DINER. HE HAS BEEN ASKING FOR WATER FREQUENTLY, HOWEVER I HAVE DECREASED HIS PO FLUID INTAKE, AND EXPLAINED HE CANNOT DRINK TOO MUCH FLUIDS. STEPHANIE AMATO RN
[2017-09-30] MEDS: VANCOMYCIN 1 GM in IV D5W 250 ML IV SCH (17:26)
--- NOTE | 2017-09-30 18:00 | NUR ---
PATIENT VS, SBP READING HIGH, AND i DID ADJUST THE CUFF FOR MORE ACCURATE BP READING. STEPHANIE AMATO RN
--- NOTE | 2017-09-30 19:30 | NUR ---
PATIENT LEFT NECK SWOLLEN AT THE IV SITE, OBSERVED DURING SHIFT REPORT. PATIENT RESTING QUIETLY IN BED. NO COMPLAINTS. STEPHANIE AMATO RN
--- NOTE | 2017-09-30 19:45 | NUR ---
ICU/PARKING CONTROL OFFICER RECEIVED REPORT FROM DAY NURSE, PT APPEARS TO BE ALERT X2-3.PT HAS NON-REBREATHER MASK AT 15 LITERS WITH SATURATION AT 100%. PT HAS A PUREE DIET, TAKES FLUID WELL WITH LITTLE ASST, PT IS ON A FLUID RESTRICTION OF 1200. PT HAS F/C, DRAINING YELLOW URINE. AND A FEW SKIN ISSUES THAT ARE ADDRESSED ON FLOW SHEET. PT WAS TURNED AND REPOSITIONED FOR COMFORT AND CARE. WILL CONTINUE TO MONITOR THIS PT.
--- NOTE | 2017-09-30 20:10 | NUR ---
ICU/MMD UNIT TEACHER PT'S IV SITE TO THE LEFT SIDE OF THE NECK WAS SWOLLEN, CHARGE NURSE NOTIFIED ABOUT POSSIBLE INFILTRATION. THERE WAS NO IV FLUIDS CURRENTLY RUNNING THROUGH THIS LINE. REMOVED THE HEPLOCK. PT DENIES ANY PAIN OR DISCOMFORT. WILL CONTINUE TO MONITOR THIS PT AND THE SWELLING TO THE NECK.
[2017-09-30] MEDS: TRAZODONE 50 MG TABLET PO SCH (21:02)
[2017-09-30] MEDS: TAMSULOSIN 0.4 MG CAP.SR.24H PO SCH (21:02)
[2017-10-01] VITALS (27 sets, daily range): BP systolic 98–180; BP diastolic 19–113
--- NOTE | 2017-10-01 00:10 | NUR ---
ICU/ENGINE LATHE SET UP OPERATOR PT PLACED ON NOCTURNAL BIPAP BY RT, SETTINGS ARE 18/5, RATE 12, 60%. WILL CONTINUE TO MONITOR THIS PT AND HIS SATURATION. CALL LIGHT WITHIN REACH AND NO ACUTE DISTRESS SEEN AT THIS TIME. PT APPEARS TO BE RESTING COMFORTABLE.
[2017-10-01] MEDS: MEROPENEM 1 G in IV NS 0.9% 100 ML IV SCH ×3 (01:40→17:14)
[2017-10-01] MEDS: MORPHINE SULFATE INJ 4 MG/ML DISP.SYRIN IV PRN ×2 (04:36→21:34)
[2017-10-01 04:58] LABS: HEMATOCRIT 37 % (39-51); HEMOGLOBIN 12.2 g/dL (13.5-17.5); LYMPHOCYTES # (AUTO) 0.6 /CMM (0.8-4.8); LYMPHOCYTES % (AUTO) 2.1 % (20.0-44.0); MEAN CORPUSCULAR HGB CONC 33 g/dl (31.0-36.0); MEAN CORPUSCULAR VOLUME 101 fL (80-96); MONOCYTES # (AUTO) 2.1 /CMM (0.1-1.30); MONOCYTES % (AUTO) 7.6 % (2.0-12.0); NEUTROPHILS # (AUTO) 24.4 /CMM (1.8-8.9); NEUTROPHILS % (AUTO) 90.3 % (43.0-81.0); PLATELET COUNT (AUTO) 163 /CMM (150-450); RDW COEFFICIENT OF VARIATION 15.6 (11.5-15.0); RED BLOOD CELL COUNT(AUTO) 3.65 MIL/uL (4.5-6.0)
--- NOTE | 2017-10-01 05:20 | NUR ---
ICU/YEAST MAKER MORPHINE 1MG IVP GIVEN FOR PAIN, TO GENERALIZED PAIN ALL OVER BODY. ALSO PT WAS CLEANED AND REPOSITIONED FOR COMFORT AND CARE.
[2017-10-01 05:22] LABS: CALCIUM, SERUM 8.6 mg/dL (8.5-10.1); CARBON DIOXIDE 24 mmol/L (21-32); CHLORIDE 113 mmol/L (98-107); CREATININE 1.1 mg/dL (0.6-1.3); GLUCOSE 95 mg/dL (74-106); MAGNESIUM 2.3 mg/dL (1.8-2.4); PHOSPHORUS 4.2 mg/dL (2.5-4.9); POTASSIUM 5.7 mmol/L (3.5-5.1); SODIUM SERUM 143 mmol/L (136-145); UREA NITROGEN, BLOOD 44 mg/dL (7-18)
[2017-10-01 06:12] LABS: BAND % (MANUAL) 2 % (0.0-5.0); LYMPHOCYTES % (MANUAL) 3 % (16-48); MONOCYTES % (MANUAL) 7 % (0-11.0); NEUTROPHILS % (MANUAL) 88 (42-76)
[2017-10-01] MEDS: IPRATROPIUM NEB FS 0.5 MG/2.5 ML AMPUL.NEB NEB SCH ×2 (07:15→15:22)
[2017-10-01] MEDS: ACETYLCYSTEINE 10% SOLN 400 MG/4 ML VIAL NEB SCH ×2 (07:15→15:22)
[2017-10-01] MEDS: LEVALBUTEROL HCL NEB 1.25 MG/0.5 ML VIAL.NEB NEB SCH ×2 (07:15→15:22)
--- NOTE | 2017-10-01 08:00 | NUR ---
Patient remains atrial fib HR >130s. Patient is receiving amiodarone po per do 24 hours around the clock. Continue to monitor Heart rate and rhythm. Colt Bonilla RN
[2017-10-01] MEDS ORDERED: FUROSEMIDE 40 MG/4 ML VIAL IV SCH (08:30)
[2017-10-01] MEDS ORDERED: methylPREDNISolone SOD SUCC 40 MG/ML VIAL IV SCH (09:00)
[2017-10-01] MEDS: NYSTATIN TOP POWDER 15 GM BOTTLE TP SCH ×4 (09:48→17:15)
[2017-10-01] MEDS: FLUTICASONE PROPIONATE 16 GM BOTTLE NS SCH (09:48)
[2017-10-01] MEDS: NEOMY SULF/BACITRAC ZN/POLY 15 GM TUBE TP SCH ×2 (09:49→21:33)
[2017-10-01] MEDS: LACTOBACILLUS RHAMNOSUS GG 1 EACH CAP.SPRINK PO SCH ×2 (09:50→17:09)
[2017-10-01] MEDS: DIVALPROEX SODIUM 250 MG TABLET.DR PO SCH ×3 (09:50→17:09)
[2017-10-01] MEDS: AMLODIPINE BESYLATE 5 MG TABLET PO SCH (09:50)
[2017-10-01] MEDS: LamoTRIgine 25 MG TABLET PO SCH ×2 (09:51→17:08)
[2017-10-01] MEDS: ISOSORBIDE DINITRATE (20MG) 20 MG TABLET PO SCH ×3 (09:51→17:16)
[2017-10-01] MEDS: GABAPENTIN 300 MG CAPSULE PO SCH ×3 (09:51→17:08)
[2017-10-01] MEDS: MORPHINE SULFATE SR 15 MG TABLET.SA PO SCH ×2 (09:52→21:00)
--- NOTE | 2017-10-01 10:00 | NUR ---
Cardiology Dr Martinez visits patient, updated and orders writen. Patient voiding 700 ml since 0600. Colt Bonilla RN
[2017-10-01] MEDS: VANCOMYCIN 1 GM in IV D5W 250 ML IV SCH (10:40)
[2017-10-01] MEDS: TICAGRELOR 90 MG TABLET PO SCH ×2 (10:41→17:13)
[2017-10-01] MEDS: AMIODARONE HCL 200 MG TABLET PO SCH ×3 (10:42→17:11)
--- NOTE | 2017-10-01 12:00 | NUR ---
Patient upper extremities with bruising, more dry wounds not oozing, so did remove the wrap drsg. Colt Bonilla RN
--- NOTE | 2017-10-01 16:00 | NUR ---
Patient vs HR still remains in 130s, and patient will receive amiodarone this late day. SBP has dropped to below 110. Colt Bonilla RN
[2017-10-01] MEDS: TAMSULOSIN 0.4 MG CAP.SR.24H PO SCH (21:32)
[2017-10-01] MEDS: TRAZODONE 50 MG TABLET PO SCH (21:32)
--- NOTE | 2017-10-01 21:45 | NUR ---
VALVE MECHANIC INITIAL NOTE RN RECEIVED REPORT FROM DAY ALYX WILLIS, PT IN BED EYES CLOSED NO DISTRESS NOTED AT THIS TIME PER REPORT PATIENT IS ALERT/ORIENTED X 2-3.PT REMAINS WITH NON-REBREATHER MASK AT 15 LITERS WITH SATURATION AT 95%. PT REMAINS ON A PUREE DIET, PT IS ON A FLUID RESTRICTION OF 1200. PT HAS F/C, DRAINING YELLOW URINE. PATIENT APPEARS TO HAVE MULTIPLE SKIN ISSUES NOTED , PHOTOS TAKEN AND PLACED IN THE PATIENT CHART. PT ASSISSTED IN TURNING AND REPOSITIONING FOR COMFORT AND CARE. MEDICATION ADMINISTERED, PO MS ANDERSON NOT AVALIBLE AT THIS TIME , PER NURSING SANITATION DIRECTOR PM ICU CHARGE NURSE ED NOTIFIED , RN NOTIFIED TO GIVEN PRN MORPHINE FOR PATIENT PATIENT PATIENT STABLE AT THIS TIME RN WILL CONTINUE TO MONITOR THIS PT THROUGHOUT THE NIGHT.
[2017-10-02] VITALS (24 sets, daily range): BP systolic 115–155; BP diastolic 68–98
[2017-10-02] MEDS: MEROPENEM 1 G in IV NS 0.9% 100 ML IV SCH ×3 (00:07→17:21)
[2017-10-02] MEDS: ACETYLCYSTEINE 10% SOLN 400 MG/4 ML VIAL NEB SCH ×3 (00:08→15:40)
[2017-10-02] MEDS: IPRATROPIUM NEB FS 0.5 MG/2.5 ML AMPUL.NEB NEB SCH ×3 (00:08→15:39)
[2017-10-02] MEDS: LEVALBUTEROL HCL NEB 1.25 MG/0.5 ML VIAL.NEB NEB SCH ×3 (00:08→15:40)
[2017-10-02] MEDS: VANCOMYCIN 1 GM in IV D5W 250 ML IV SCH ×2 (03:03→22:16)
--- NOTE | 2017-10-02 04:17 | NUR ---
RN NOTE PATIENT CURRENTLY REFUSING BED BATH STATES HE PREFERS T6O WAIT UNTIL DAYSHIFT, PATIENT CURRENTLY RECEIVING BLOOD DRAW, PATIENT REMAINS ALERT AND ORIENTED ABLE TO MAKE NEEDS KNOWN. RN WILL CONTINUE TO FOLLOW THE PATIENTS PROGRESS
[2017-10-02 05:14] LABS: HEMATOCRIT 36 % (39-51); LYMPHOCYTES # (AUTO) 0.6 /CMM (0.8-4.8); LYMPHOCYTES % (AUTO) 2.2 % (20.0-44.0); MEAN CORPUSCULAR HGB CONC 34 g/dl (31.0-36.0); MEAN CORPUSCULAR VOLUME 99 fL (80-96); MONOCYTES # (AUTO) 1.7 /CMM (0.1-1.30); MONOCYTES % (AUTO) 6.5 % (2.0-12.0); NEUTROPHILS # (AUTO) 24.3 /CMM (1.8-8.9); NEUTROPHILS % (AUTO) 91.3 % (43.0-81.0); PLATELET COUNT (AUTO) 205 /CMM (150-450); RDW COEFFICIENT OF VARIATION 15.3 (11.5-15.0); RED BLOOD CELL COUNT(AUTO) 3.61 MIL/uL (4.5-6.0); WHITE BLOOD COUNT (AUTO) 26.6 K/uL (4.3-11.0)
[2017-10-02 05:15] LABS: OSMOLALITY,SERUM 307 mOS/kg (278-305)
[2017-10-02 05:26] LABS: ALANINE AMINOTRANSFERASE 47 U/L (12-78); ALBUMIN 1.7 g/dL (3.4-5.0); ALKALINE PHOSPHATASE 55 U/L (46-116); ASPARTATE AMINOTRANSFERASE 28 U/L (15-37); BILIRUBIN,TOTAL 0.7 mg/dL (0.2-1.0); CALCIUM, SERUM 8.5 mg/dL (8.5-10.1); CARBON DIOXIDE 32 mmol/L (21-32); CHLORIDE 109 mmol/L (98-107); CREATININE 1.1 mg/dL (0.6-1.3); GLUCOSE 122 mg/dL (74-106); MAGNESIUM 2.1 mg/dL (1.8-2.4); PHOSPHORUS 3.8 mg/dL (2.5-4.9); POTASSIUM 4.7 mmol/L (3.5-5.1); SODIUM SERUM 144 mmol/L (136-145); TOTAL PROTEIN, SERUM 5.3 g/dL (6.4-8.2); UREA NITROGEN, BLOOD 42 mg/dL (7-18)
[2017-10-02 06:21] LABS: BAND % (MANUAL) 3 % (0.0-5.0); LYMPHOCYTES % (MANUAL) 4 % (16-48); MONOCYTES % (MANUAL) 5 % (0-11.0); NEUTROPHILS % (MANUAL) 87 (42-76)
[2017-10-02 06:22] LABS: METAMYELOCYTES % 1 % (0-0)
--- NOTE | 2017-10-02 06:32 | NUR ---
RN NOTE PATIENT IN BED NO COMPLAINTS AT THIS TIME, PATIENT ABLE TO MAKE NEEDS KNOWN, PATIENT REMAINS ON THE NO REBREATHER NO ISSUES NOTED AT THIS TIME, PATIENT REMAINS STABLE , CONTINUATION OF CARE WILL BE ENDOWED TO THE AM SHIFT.
--- NOTE | 2017-10-02 07:35 | NUR ---
HIGH REACH OPERATOR RECEIVED PATIENT FROM THE PREVIOUS SHIFT. PATIENT IS IN BED. NON REBREATHER MASK. ALERT AND AWAKE X 4. AFIB ON MONITOR. KING DRAINING URINE TO GRAVITY. TURNED AND REPOSITIONED FOR COMFORT AND WOUND PREVENTION. WILL CONTINUE TO MONITOR AND PROVIDE CARE.
[2017-10-02] MEDS: TICAGRELOR 90 MG TABLET PO SCH ×2 (08:44→17:21)
[2017-10-02] MEDS: NYSTATIN TOP POWDER 15 GM BOTTLE TP SCH ×4 (08:44→17:22)
[2017-10-02] MEDS: DIVALPROEX SODIUM 250 MG TABLET.DR PO SCH ×3 (08:45→17:22)
[2017-10-02] MEDS: LACTOBACILLUS RHAMNOSUS GG 1 EACH CAP.SPRINK PO SCH ×2 (08:45→17:21)
[2017-10-02] MEDS: GABAPENTIN 300 MG CAPSULE PO SCH ×3 (08:45→17:22)
[2017-10-02] MEDS: AMLODIPINE BESYLATE 5 MG TABLET PO SCH (08:45)
[2017-10-02] MEDS: ISOSORBIDE DINITRATE (20MG) 20 MG TABLET PO SCH ×3 (08:45→17:22)
[2017-10-02] MEDS: LamoTRIgine 25 MG TABLET PO SCH ×2 (08:45→17:22)
[2017-10-02] MEDS: methylPREDNISolone SOD SUCC 40 MG/ML VIAL IV SCH (08:46)
[2017-10-02] MEDS: FLUTICASONE PROPIONATE 16 GM BOTTLE NS SCH (08:47)
[2017-10-02] MEDS: NEOMY SULF/BACITRAC ZN/POLY 15 GM TUBE TP SCH ×2 (08:47→21:13)
[2017-10-02] MEDS: AMIODARONE HCL 200 MG TABLET PO SCH ×3 (08:48→17:22)
[2017-10-02] MEDS: MORPHINE SULFATE SR 15 MG TABLET.SA PO SCH ×2 (09:00→21:12)
--- NOTE | 2017-10-02 09:29 | NUR ---
SPANISHER RECEIVED [place] TOWER LOADER RECOMMENDATION TO HOLD CT PULMONARY ANGIOGRAM AT THIS TIME DUE TO HIGH RISK FOR RESPIRATORY FAILURE DURING TRANSPORT AND DURING SCAN.
[2017-10-02 10:51] LABS: ABG BASE EXCESS 4.6 mmol/L; ABG OXYGEN SATURATION 85.5 % (92.0-98.5); ABG PCO2 35.2 mmHg (35.0-45.0); ABG PH 7.511 (7.350-7.450); ABG PO2 48.6 mmHg (75.0-100.0); AaDO2 340.5 mmHg; COHb 0.3 % (0.5-1.5); MetHb 0.5 % (0.0-1.5); O2Hb 84.8 % (94.0-97.0); SITE, ABG Left Radial; VENT MODE, BG 10 L/MIN MASK
[2017-10-02] MEDS: DOCUSATE SODIUM 100 MG CAPSULE PO SCH ×2 (12:51→17:21)
--- NOTE | 2017-10-02 17:50 | NUR ---
RUBBER COMPOUNDER SUPERVISOR RECOMMENDATIONS RECEIVED FROM [place]ER SUPERVISOR HOLD CT PULM ANGIOGRAM, DUE TO HIGH RISK FOR RESP ARREST DURING TRANSPORT/ SCAN. WILL REASSESS/ REEVALUATE TOMORROW.
[2017-10-02] MEDS ORDERED: LIDOCAINE 1%-EPI 1:100,000 20 ML VIAL TP ONE ×2 (18:30→21:00)
--- NOTE | 2017-10-02 20:00 | NUR ---
ICU/RN RECEIVED PT AWAKE ALERT AND OX3.ON 100% NRM W/ SAT OF 98%.OFFERS NO COMPLAINTS.MONITOR SHOWS A-FIB.RATE 90'S-100'S.
[2017-10-02] MEDS: TAMSULOSIN 0.4 MG CAP.SR.24H PO SCH (21:43)
[2017-10-02] MEDS: TRAZODONE 50 MG TABLET PO SCH (21:43)
[2017-10-03] VITALS (26 sets, daily range): BP systolic 98–130; BP diastolic 51–78
[2017-10-03] MEDS: IPRATROPIUM NEB FS 0.5 MG/2.5 ML AMPUL.NEB NEB SCH ×4 (00:23→23:20)
[2017-10-03] MEDS: ACETYLCYSTEINE 10% SOLN 400 MG/4 ML VIAL NEB SCH ×4 (00:23→23:21)
[2017-10-03] MEDS: LEVALBUTEROL HCL NEB 1.25 MG/0.5 ML VIAL.NEB NEB SCH ×4 (00:24→23:20)
--- NOTE | 2017-10-03 02:00 | NUR ---
ICU/RN MONITOR SHOWS [id number] W/CONTROLLED VENTRICULAR RESPONSE.MAINTAINING GOOD SATURATION FROM 98%-100%.
[2017-10-03] MEDS: MEROPENEM 1 G in IV NS 0.9% 100 ML IV SCH ×3 (02:53→16:54)
--- NOTE | 2017-10-03 03:30 | NUR ---
ICU/RN AWAKE,OFFERS NO COMPLAINTS.OFFERED BATH BUT REFUSED.
[2017-10-03] MEDS ORDERED: IV NS 0.9% 250 ML IV ONE (04:30)
[2017-10-03 04:31] LABS: EOSINOPHILS % (AUTO) 0.2 % (0.0-6.0); HEMATOCRIT 32 % (39-51); HEMOGLOBIN 10.6 g/dL (13.5-17.5); LYMPHOCYTES # (AUTO) 0.6 /CMM (0.8-4.8); LYMPHOCYTES % (AUTO) 3.3 % (20.0-44.0); MEAN CORPUSCULAR HGB CONC 34 g/dl (31.0-36.0); MEAN CORPUSCULAR VOLUME 99 fL (80-96); MONOCYTES % (AUTO) 10.6 % (2.0-12.0); NEUTROPHILS # (AUTO) 16.4 /CMM (1.8-8.9); NEUTROPHILS % (AUTO) 85.9 % (43.0-81.0); PLATELET COUNT (AUTO) 188 /CMM (150-450); RDW COEFFICIENT OF VARIATION 15.1 (11.5-15.0); RED BLOOD CELL COUNT(AUTO) 3.19 MIL/uL (4.5-6.0)
[2017-10-03 04:51] LABS: CARBON DIOXIDE 32 mmol/L (21-32); CHLORIDE 109 mmol/L (98-107); CREATININE 1.1 mg/dL (0.6-1.3); GLUCOSE 134 mg/dL (74-106); POTASSIUM 4.8 mmol/L (3.5-5.1); SODIUM SERUM 143 mmol/L (136-145); UREA NITROGEN, BLOOD 37 mg/dL (7-18)
[2017-10-03 05:31] LABS: BAND % (MANUAL) 2 % (0.0-5.0); LYMPHOCYTES % (MANUAL) 3 % (16-48); MONOCYTES % (MANUAL) 7 % (0-11.0); NEUTROPHILS % (MANUAL) 88 (42-76)
--- NOTE | 2017-10-03 07:08 | NUR ---
ICU/RN REPORT AND CARE OF PT GIVEN TO DAVID WISDOM.
--- NOTE | 2017-10-03 07:35 | NUR ---
PIPE BENDING MACHINE OPERATOR RECEIVED PATIENT FROM THE PREVIOUS SHIFT. PATIENT IS IN BED. RESTING COMFORTABLY. ON NRB MASK. KING DRAINING URINE TO GRAVITY. ABLE TO VERBALIZE NEEDS. CALL LIGHT AT REACH. STABLE VITAL SINGS. TURNED AND REPOSITIONED FOR COMFORT AND WOUND PREVENTION. WILL CONTINUE TO MONITOR AND PROVIDE CARE.
[2017-10-03] MEDS: AMIODARONE HCL 200 MG TABLET PO SCH ×3 (08:15→16:55)
[2017-10-03] MEDS: methylPREDNISolone SOD SUCC 40 MG/ML VIAL IV SCH (08:16)
[2017-10-03] MEDS: ISOSORBIDE DINITRATE (20MG) 20 MG TABLET PO SCH ×3 (08:16→16:54)
[2017-10-03] MEDS: GABAPENTIN 300 MG CAPSULE PO SCH ×3 (08:16→16:54)
[2017-10-03] MEDS: LACTOBACILLUS RHAMNOSUS GG 1 EACH CAP.SPRINK PO SCH ×2 (08:16→16:54)
[2017-10-03] MEDS: DOCUSATE SODIUM 100 MG CAPSULE PO SCH ×2 (08:16→16:54)
[2017-10-03] MEDS: LamoTRIgine 25 MG TABLET PO SCH ×2 (08:16→16:54)
[2017-10-03] MEDS: TICAGRELOR 90 MG TABLET PO SCH ×2 (08:17→16:54)
[2017-10-03] MEDS: MORPHINE SULFATE SR 15 MG TABLET.SA PO SCH ×2 (08:17→20:50)
[2017-10-03] MEDS: NEOMY SULF/BACITRAC ZN/POLY 15 GM TUBE TP SCH ×2 (08:18→20:46)
[2017-10-03] MEDS: NYSTATIN TOP POWDER 15 GM BOTTLE TP SCH ×3 (08:18→16:50)
[2017-10-03] MEDS: FLUTICASONE PROPIONATE 16 GM BOTTLE NS SCH (08:18)
[2017-10-03] MEDS: AMLODIPINE BESYLATE 5 MG TABLET PO SCH (08:25)
[2017-10-03] MEDS: DIVALPROEX SODIUM 250 MG TABLET.DR PO SCH ×3 (08:26→16:55)
--- NOTE | 2017-10-03 09:10 | NUR ---
SPOKE WITH RN. CT PULMONARY ANGIOGRAM ON HOLD, RN WILL FOLLOW-UP WITH MD.
--- NOTE | 2017-10-03 12:39 | NUR ---
FURNITURE AND BEDDING INSPECTOR PATIENT UNSTABLE FOR CT PULM ANGIO PER ORDER DESK CALLER. DR. BURNHAM MADE AWARE.
[2017-10-03] MEDS: MORPHINE SULFATE INJ 4 MG/ML DISP.SYRIN IV PRN (15:19)
[2017-10-03] MEDS: VANCOMYCIN 1 GM in IV D5W 250 ML IV SCH (15:52)
--- NOTE | 2017-10-03 19:30 | NUR ---
Received report patient awake alert and oriented x 2.Monitor shows Afib controlled.Normotensive.Saturation 100% on NRM.Denies pain or sob.FC to gravity drainage with clear isabella urine.Turned and repositioned.Call light maintained at BS instructed to call for assistance.Verbalized understanding.
--- NOTE | 2017-10-03 21:22 | NUR ---
PT IS AWAKE ORIENTED ON NRB. NO SOB. WILL CONTINUE TO MONITOR.
[2017-10-03] MEDS: TAMSULOSIN 0.4 MG CAP.SR.24H PO SCH (22:00)
[2017-10-03] MEDS: TRAZODONE 50 MG TABLET PO SCH (22:00)
[2017-10-04] VITALS (24 sets, daily range): BP systolic 99–156; BP diastolic 52–98
[2017-10-04] MEDS: MEROPENEM 1 G in IV NS 0.9% 100 ML IV SCH ×3 (00:31→16:52)
--- NOTE | 2017-10-04 04:00 | NUR ---
Offered bed bath to patient but refused.
[2017-10-04 04:22] LABS: EOSINOPHILS % (AUTO) 0.1 % (0.0-6.0); HEMATOCRIT 31 % (39-51); HEMOGLOBIN 10.4 g/dL (13.5-17.5); LYMPHOCYTES # (AUTO) 0.6 /CMM (0.8-4.8); LYMPHOCYTES % (AUTO) 2.7 % (20.0-44.0); MEAN CORPUSCULAR HGB CONC 33 g/dl (31.0-36.0); MEAN CORPUSCULAR VOLUME 99 fL (80-96); MONOCYTES # (AUTO) 2.1 /CMM (0.1-1.30); MONOCYTES % (AUTO) 9.3 % (2.0-12.0); NEUTROPHILS # (AUTO) 20.3 /CMM (1.8-8.9); NEUTROPHILS % (AUTO) 87.9 % (43.0-81.0); PLATELET COUNT (AUTO) 197 /CMM (150-450); RDW COEFFICIENT OF VARIATION 15.6 (11.5-15.0); RED BLOOD CELL COUNT(AUTO) 3.17 MIL/uL (4.5-6.0)
[2017-10-04 04:33] LABS: CALCIUM, SERUM 8.1 mg/dL (8.5-10.1); CARBON DIOXIDE 33 mmol/L (21-32); CHLORIDE 110 mmol/L (98-107); CREATININE 1.1 mg/dL (0.6-1.3); GLUCOSE 99 mg/dL (74-106); MAGNESIUM 2.1 mg/dL (1.8-2.4); POTASSIUM 5.1 mmol/L (3.5-5.1); SODIUM SERUM 145 mmol/L (136-145); UREA NITROGEN, BLOOD 34 mg/dL (7-18)
[2017-10-04] MEDS ORDERED: IV NS 0.9% 250 ML IV ONE (05:30)
--- NOTE | 2017-10-04 06:23 | NUR ---
Patient slept most of the night.Maintained on 15L NRB Mask well tolerated. No significant change noted.VS remains stable.Afib controlled 80's-90's.Denies pain.Adequate urine output.Turned and repositioned.
--- NOTE | 2017-10-04 07:30 | NUR ---
OPENING NOTE: PT ON BED WITH NRM AT 10 LPM. PT ALERT AND AWAKE ORIENTED X 2. MOVES ALL EXTREMITIES UPON COMMAND AND GREETED RN WITH "HI". PT A-FIB ON MONITOR PT HAS TWO PIV ONE IN RUC AND SECOND IN RIGHT ARM. BOTH SITES CLEAN DRY INTACT WITHOUT SWELLING REDNESS OR PAIN. PT HAS PUREE DIET BED IN LOW POSITION DOCKED CALL [place] NEAR PT.
[2017-10-04] MEDS: IPRATROPIUM NEB FS 0.5 MG/2.5 ML AMPUL.NEB NEB SCH ×3 (07:36→23:30)
[2017-10-04] MEDS: ACETYLCYSTEINE 10% SOLN 400 MG/4 ML VIAL NEB SCH ×3 (07:36→23:30)
[2017-10-04] MEDS: LEVALBUTEROL HCL NEB 1.25 MG/0.5 ML VIAL.NEB NEB SCH ×3 (07:37→23:30)
[2017-10-04] MEDS: LACTOBACILLUS RHAMNOSUS GG 1 EACH CAP.SPRINK PO SCH ×2 (09:08→16:52)
[2017-10-04] MEDS: DOCUSATE SODIUM 100 MG CAPSULE PO SCH ×2 (09:08→16:53)
[2017-10-04] MEDS: MORPHINE SULFATE SR 15 MG TABLET.SA PO SCH ×2 (09:08→20:53)
[2017-10-04] MEDS: LamoTRIgine 25 MG TABLET PO SCH ×2 (09:08→16:54)
[2017-10-04] MEDS: methylPREDNISolone SOD SUCC 40 MG/ML VIAL IV SCH (09:08)
[2017-10-04] MEDS: DIVALPROEX SODIUM 250 MG TABLET.DR PO SCH ×3 (09:08→16:53)
[2017-10-04] MEDS: GABAPENTIN 300 MG CAPSULE PO SCH ×3 (09:08→16:53)
[2017-10-04] MEDS: AMLODIPINE BESYLATE 5 MG TABLET PO SCH (09:09)
[2017-10-04] MEDS: AMIODARONE HCL 200 MG TABLET PO SCH ×3 (09:09→16:52)
[2017-10-04] MEDS: ISOSORBIDE DINITRATE (20MG) 20 MG TABLET PO SCH ×2 (09:11→16:53)
[2017-10-04] MEDS: TICAGRELOR 90 MG TABLET PO SCH ×2 (09:12→17:19)
[2017-10-04] MEDS: FLUTICASONE PROPIONATE 16 GM BOTTLE NS SCH (09:19)
[2017-10-04] MEDS: NYSTATIN TOP POWDER 15 GM BOTTLE TP SCH ×2 (09:19→17:20)
[2017-10-04] MEDS: NEOMY SULF/BACITRAC ZN/POLY 15 GM TUBE TP SCH ×2 (09:19→20:54)
[2017-10-04] MEDS: VANCOMYCIN 1 GM in IV D5W 250 ML IV SCH (10:59)
[2017-10-04] MEDS: MORPHINE SULFATE INJ 4 MG/ML DISP.SYRIN IV PRN (13:04)
--- NOTE | 2017-10-04 19:12 | NUR ---
CLOSING NOTE: PT REMAINS STABLE ABLE TO EAT 75% OF SIET. PT BATHED ANIMATED NO CHANGE IN CARDIAC RHYTHM PT REMAINED STABLE ALL SHIFT ENDORSING CARE TO MACHINE STONE POLISHER APPRENTICE RN.
--- NOTE | 2017-10-04 19:56 | NUR ---
ICU/OPERATIONAL RISK CONSULTANT RECEIVED REPORT FROM DAY NURSE, PT APPEARS TO BE ALERT X2.PT HAS NON-REBREATHER MASK AT 15 LITERS WITH SATURATION AT 98%. PT HAS A PUREE DIET, TAKES FLUID WELL WITH LITTLE ASST, PT IS ON A FLUID RESTRICTION OF 1200. PT HAS F/C, DRAINING YELLOW URINE. AND A FEW SKIN ISSUES THAT ARE ADDRESSED ON FLOW SHEET. PT WAS TURNED AND REPOSITIONED FOR COMFORT AND CARE. WILL CONTINUE TO MONITOR THIS PT WITH CALL LIGHT WITHIN REACH.
--- NOTE | 2017-10-04 20:08 | NUR ---
PT IS AWAKE ALERT ON 15L NRB. O2 SAT 96-97%. NO SOB. WILL CONTINUE TO MONITOR.
[2017-10-04] MEDS: TRAZODONE 50 MG TABLET PO SCH (20:54)
[2017-10-04] MEDS: TAMSULOSIN 0.4 MG CAP.SR.24H PO SCH (20:54)
--- NOTE | 2017-10-04 23:05 | NUR ---
ICU/FRONT MAKER PT REFUSED TO HAVE BATH, PT AT THIS TIME DENIES ANY PAIN. PT APPEARS TO BE COMFORTABLE. CALL LIGHT WITHIN REACH. NO ACUTE DISTRESS SEEN, PT REMAINS ON 15 LITERS ON NRM WITH SATURATION AT 98%.
[2017-10-05] VITALS (24 sets, daily range): BP systolic 95–134; BP diastolic 58–89
--- NOTE | 2017-10-05 01:45 | NUR ---
ICU/PROCESS SERVER PT REFUSED TO HAVE BATH BUT WAS ABLE TO TURN AND REPOSITIONED. PT DENIES ANY PAIN AT THIS TIME.
--- NOTE | 2017-10-05 02:15 | NUR ---
ICU/PHARMACY INFORMATICS SPECIALIST PT GIVEN AM CARE ALONG WITH ORAL CARE, SATURATION REMAINS AT 95-97% ON 2 LITERS VIA N/C. PT HAD BM, NO NEW SKIN ISSUES AT THIS TIME. PT WAS TURNED AND REPOSITIONED FOR COMFORT AND CARE. Addendum: 10/05/17 at 0649 by VENKAT MIRANDA LVN WRONG PT
--- NOTE | 2017-10-05 03:10 | NUR ---
ICU/GREENS TIER PT REFUSED TO HAVE BATH, PT AT THIS TIME DENIES ANY PAIN. PT APPEARS TO BE COMFORTABLE. CALL LIGHT WITHIN REACH.
[2017-10-05 04:42] LABS: EOSINOPHILS % (AUTO) 0.1 % (0.0-6.0); HEMATOCRIT 31 % (39-51); HEMOGLOBIN 10.4 g/dL (13.5-17.5); LYMPHOCYTES # (AUTO) 0.8 /CMM (0.8-4.8); MEAN CORPUSCULAR HGB CONC 33 g/dl (31.0-36.0); MEAN CORPUSCULAR VOLUME 99 fL (80-96); NEUTROPHILS # (AUTO) 16.9 /CMM (1.8-8.9); NEUTROPHILS % (AUTO) 85.9 % (43.0-81.0); PLATELET COUNT (AUTO) 218 /CMM (150-450); RDW COEFFICIENT OF VARIATION 15.2 (11.5-15.0); RED BLOOD CELL COUNT(AUTO) 3.14 MIL/uL (4.5-6.0); WHITE BLOOD COUNT (AUTO) 19.7 K/uL (4.3-11.0)
[2017-10-05 05:08] LABS: CALCIUM, SERUM 7.9 mg/dL (8.5-10.1); CARBON DIOXIDE 33 mmol/L (21-32); CHLORIDE 110 mmol/L (98-107); GLUCOSE 83 mg/dL (74-106); MAGNESIUM 2.1 mg/dL (1.8-2.4); POTASSIUM 5.2 mmol/L (3.5-5.1); SODIUM SERUM 143 mmol/L (136-145); UREA NITROGEN, BLOOD 31 mg/dL (7-18)
--- NOTE | 2017-10-05 06:20 | NUR ---
ICU/REFRIGERATED CARGO CLERK PT APPEARS TO BE COMFORTABLE WHILE ON 15 LITERS NRM WITH SATURATION AT 98%.CALL LIGHT WITHIN REACH.
[2017-10-05] MEDS: ACETYLCYSTEINE 10% SOLN 400 MG/4 ML VIAL NEB SCH ×3 (07:27→23:36)
[2017-10-05] MEDS: IPRATROPIUM NEB FS 0.5 MG/2.5 ML AMPUL.NEB NEB SCH ×3 (07:28→23:36)
[2017-10-05] MEDS: LEVALBUTEROL HCL NEB 1.25 MG/0.5 ML VIAL.NEB NEB SCH ×3 (07:28→23:36)
[2017-10-05] MEDS: methylPREDNISolone SOD SUCC 40 MG/ML VIAL IV SCH (08:32)
[2017-10-05] MEDS: LACTOBACILLUS RHAMNOSUS GG 1 EACH CAP.SPRINK PO SCH ×2 (08:33→16:25)
[2017-10-05] MEDS: AMLODIPINE BESYLATE 5 MG TABLET PO SCH (08:33)
[2017-10-05] MEDS: AMIODARONE HCL 200 MG TABLET PO SCH ×3 (08:33→16:24)
[2017-10-05] MEDS: ISOSORBIDE DINITRATE (20MG) 20 MG TABLET PO SCH ×2 (08:33→16:24)
[2017-10-05] MEDS: LamoTRIgine 25 MG TABLET PO SCH ×2 (08:33→16:24)
[2017-10-05] MEDS: DIVALPROEX SODIUM 250 MG TABLET.DR PO SCH ×3 (08:33→16:24)
[2017-10-05] MEDS: DOCUSATE SODIUM 100 MG CAPSULE PO SCH ×2 (08:33→16:24)
[2017-10-05] MEDS: GABAPENTIN 300 MG CAPSULE PO SCH ×3 (08:33→16:24)
[2017-10-05] MEDS: FLUTICASONE PROPIONATE 16 GM BOTTLE NS SCH (08:35)
[2017-10-05] MEDS: NYSTATIN TOP POWDER 15 GM BOTTLE TP SCH ×2 (08:35→16:25)
[2017-10-05] MEDS: NEOMY SULF/BACITRAC ZN/POLY 15 GM TUBE TP SCH ×2 (08:35→21:28)
[2017-10-05] MEDS: TICAGRELOR 90 MG TABLET PO SCH ×2 (08:36→16:25)
[2017-10-05] MEDS: MORPHINE SULFATE SR 15 MG TABLET.SA PO SCH ×2 (08:39→21:27)
--- NOTE | 2017-10-05 09:16 | NUR ---
SUSTAINABLE DEVELOPMENT POLICY ANALYST NOTE 0720: Received patient awake, A/Ox2, on 15LPM of O2 via NRB mask. 97% O2 sat. With PIVs intact. Afib on the monitor. Moon cath intact, noted with clear isabella colored urine drained to BSD. S/E by Dr. Mc, no new order at this time. 0830: Assisted on eating breakfast, able to feed himself with pureed diet. Tried to place on NC, but went desat 86%, place on NRB mask on, and let him remove the mask every time he takes a bite, verbalized understanding. 0910: S/E by Dr. Richardson, with order to place on Vapotherm/high flow, made RT aware. 0915: S/E by Dr. Bowman, with order for Kayexalate 15gm for K 5.2.
[2017-10-05] MEDS ORDERED: SODIUM POLYSTYRENE SULFONATE 15 G/60 ML BOTTLE PO ONE (10:00)
[2017-10-05] MEDS: MORPHINE SULFATE INJ 4 MG/ML DISP.SYRIN IV PRN (11:25)
[2017-10-05] MEDS ORDERED: FUROSEMIDE 40 MG/4 ML VIAL IV SCH (11:30)
--- NOTE | 2017-10-05 12:03 | NUR ---
RT NOTE: HIGH FLOW NASAL CANNULA NOT AVAILABLE AT THIS. , COMMERCIAL ENERGY RATER (REIKA Amador), AND NURSE(SARABJIT) AWARE.
[2017-10-05] MEDS: BISACODYL (5 MG) 5 MG TABLET.DR PO PRN (15:43)
[2017-10-05] MEDS ORDERED: FEE PK DOSING 1 MIN EA MC ONE (20:07)
[2017-10-05] MEDS: TAMSULOSIN 0.4 MG CAP.SR.24H PO SCH (21:26)
[2017-10-05] MEDS: VANCOMYCIN 1 GM in IV D5W 250 ML IV SCH (21:26)
[2017-10-05] MEDS: MEROPENEM 500 MG in IV NS 0.9% 50 ML IV SCH (21:26)
[2017-10-05] MEDS: TRAZODONE 50 MG TABLET PO SCH (21:26)
--- NOTE | 2017-10-05 23:00 | NUR ---
CLINICAL MOLECULAR GENETICIST NOTE CONTINUITY OF CARE RECEIVED FROM MAGED. WILL CONTINUE TO MONITOR.
--- NOTE | 2017-10-05 23:30 | NUR ---
IRONWORKER APPRENTICE NOTE O2 TITRATED TO 8LPM VIA SIMPLE MASK. WILL CONTINUE TO MONITOR.
[2017-10-06] VITALS (20 sets, daily range): BP systolic 101–145; BP diastolic 57–88
--- NOTE | 2017-10-06 02:30 | NUR ---
TOOL SHAPER SETUP OPERATOR NOTE PATIENT C/O SOB, STATES HE FEELS LIKE HE'S NOT GETTING ENOUGH OXYGEN, INCREASED OXYGEN BACK TO 10LPM VIA SIMPLE MASK. WILL CONTINUE TO MONITOR.
--- NOTE | 2017-10-06 04:00 | NUR ---
HAND SINGER NOTE REFUSED BED BATH, REFUSED TO BE REPOSITIONED, STATES HES FINE AND WOULD LIKE TO BE LEFT ALONE.
[2017-10-06 04:31] LABS: BASOPHILS # (AUTO) 0.1 /CMM (0.0-0.2); BASOPHILS % (AUTO) 0.4 % (0.0-2.0); HEMATOCRIT 33 % (39-51); HEMOGLOBIN 11.3 g/dL (13.5-17.5); LYMPHOCYTES % (AUTO) 3.6 % (20.0-44.0); MEAN CORPUSCULAR HGB CONC 34 g/dl (31.0-36.0); MEAN CORPUSCULAR VOLUME 99 fL (80-96); MONOCYTES # (AUTO) 2.3 /CMM (0.1-1.30); MONOCYTES % (AUTO) 8.1 % (2.0-12.0); NEUTROPHILS # (AUTO) 24.8 /CMM (1.8-8.9); NEUTROPHILS % (AUTO) 87.9 % (43.0-81.0); PLATELET COUNT (AUTO) 287 /CMM (150-450); RDW COEFFICIENT OF VARIATION 15.1 (11.5-15.0); RED BLOOD CELL COUNT(AUTO) 3.39 MIL/uL (4.5-6.0); WHITE BLOOD COUNT (AUTO) 28.2 K/uL (4.3-11.0)
[2017-10-06 04:40] LABS: CALCIUM, SERUM 8.4 mg/dL (8.5-10.1); CARBON DIOXIDE 32 mmol/L (21-32); CHLORIDE 107 mmol/L (98-107); GLUCOSE 72 mg/dL (74-106); MAGNESIUM 1.9 mg/dL (1.8-2.4); POTASSIUM 4.6 mmol/L (3.5-5.1); SODIUM SERUM 142 mmol/L (136-145); UREA NITROGEN, BLOOD 33 mg/dL (7-18)
[2017-10-06 05:00] LABS: BAND % (MANUAL) 2 % (0.0-5.0); LYMPHOCYTES % (MANUAL) 2 % (16-48); MONOCYTES % (MANUAL) 6 % (0-11.0); NEUTROPHILS % (MANUAL) 90 (42-76)
[2017-10-06] MEDS: MEROPENEM 500 MG in IV NS 0.9% 50 ML IV SCH ×3 (05:30→20:26)
--- NOTE | 2017-10-06 06:51 | NUR ---
SUPERVISOR SCREEN MAKING CLOSING NOTE NO SIGNIFICANT CHANGES OVERNIGHT. SLEPT THROUGH THE NIGHT. NO DISTRESS NOTED, ON 10LPM SIMPLE MASK. F/C PATENT AND INTACT, DRAINING BY GRAVITY. ALL DUE MEDS GIVEN. ALL NEEDS ANTICIPATED AND MET. HOB ELEVATED. SIDE RAILS UP AND LOCKED. BED KEPT AT LOWEST POSITION. CALL LIGHT KEPT WITHIN EASY REACH. WILL ENDORSE CONTINUITY OF CARE TO AM NURSE.
[2017-10-06] MEDS: ACETYLCYSTEINE 10% SOLN 400 MG/4 ML VIAL NEB SCH ×3 (07:35→23:11)
[2017-10-06] MEDS: IPRATROPIUM NEB FS 0.5 MG/2.5 ML AMPUL.NEB NEB SCH ×3 (07:35→23:10)
[2017-10-06] MEDS: LEVALBUTEROL HCL NEB 1.25 MG/0.5 ML VIAL.NEB NEB SCH ×3 (07:35→23:11)
[2017-10-06] MEDS: TICAGRELOR 90 MG TABLET PO SCH ×2 (08:18→16:12)
[2017-10-06] MEDS: DOCUSATE SODIUM 100 MG CAPSULE PO SCH ×2 (08:19→16:02)
[2017-10-06] MEDS: LACTOBACILLUS RHAMNOSUS GG 1 EACH CAP.SPRINK PO SCH ×2 (08:19→16:12)
[2017-10-06] MEDS: methylPREDNISolone SOD SUCC 40 MG/ML VIAL IV SCH (08:19)
[2017-10-06] MEDS: LamoTRIgine 25 MG TABLET PO SCH ×2 (08:19→16:12)
[2017-10-06] MEDS: AMIODARONE HCL 200 MG TABLET PO SCH ×3 (08:19→16:13)
[2017-10-06] MEDS: DIVALPROEX SODIUM 250 MG TABLET.DR PO SCH ×3 (08:20→16:12)
[2017-10-06] MEDS: AMLODIPINE BESYLATE 5 MG TABLET PO SCH (08:20)
[2017-10-06] MEDS: GABAPENTIN 300 MG CAPSULE PO SCH ×3 (08:20→16:12)
[2017-10-06] MEDS: MORPHINE SULFATE SR 15 MG TABLET.SA PO SCH ×2 (08:20→20:27)
[2017-10-06] MEDS: ISOSORBIDE DINITRATE (20MG) 20 MG TABLET PO SCH ×2 (08:26→16:13)
[2017-10-06] MEDS: NEOMY SULF/BACITRAC ZN/POLY 15 GM TUBE TP SCH ×2 (08:27→20:41)
[2017-10-06] MEDS: NYSTATIN TOP POWDER 15 GM BOTTLE TP SCH ×2 (08:38→16:14)
[2017-10-06] MEDS: FLUTICASONE PROPIONATE 16 GM BOTTLE NS SCH (08:39)
--- NOTE | 2017-10-06 09:00 | NUR ---
ICU/RN: Pt unable to tolerate NC 6L/min during mealtime. Placed back on simple mask at 10L/min. O2 sat at 92-96%, no SOB noted.
[2017-10-06 09:49] LABS: ABG BASE EXCESS 7.2 mmol/L; ABG OXYGEN SATURATION 90.7 % (92.0-98.5); ABG PCO2 42.5 mmHg (35.0-45.0); ABG PH 7.485 (7.350-7.450); ABG PO2 58.7 mmHg (75.0-100.0); COHb 0.3 % (0.5-1.5); MetHb 0.8 % (0.0-1.5); O2Hb 89.7 % (94.0-97.0); SITE, ABG Right Radial; VENT MODE, BG SM 8L
[2017-10-06] MEDS: BISACODYL (5 MG) 5 MG TABLET.DR PO PRN (12:21)
--- NOTE | 2017-10-06 14:00 | NUR ---
ICU/RN: Dr Richardson rounds; pt is cleared for downgrade to [facility].
--- NOTE | 2017-10-06 15:00 | NUR ---
ICU/RN: Stool softeners and laxatives effective. Pt with large soft brown BM. Pt reports increase in comfort. Full bed bath, oral care and linen change rendered. Currently resting comfortably in bed. Call light within reach.
[2017-10-06] MEDS: VANCOMYCIN 1 GM in IV D5W 250 ML IV SCH (16:12)
--- NOTE | 2017-10-06 17:15 | NUR ---
ICU/RN: Assisted pt with dinner, ate 100% of meal. Pills crushed, mixed with apple sauce. Tolerated well.
--- NOTE | 2017-10-06 18:00 | NUR ---
ICU/RN: Pt transferred in stable condition to [facility] 119-1. Breathing even and unlabored on SM @ 8L/min. IV HL patent, flushed. A-fib 102 on monitor, O2 sat 96%. Pt belongings and medications transferred, reviewed with receiving RN. Denies pain and discomfort. Placed on nurse monitoring. Bedside report given to ALYX Mcclain for LAURO.
--- NOTE | 2017-10-06 20:00 | NUR ---
[facility] NOTES RECEIVED P[T SLEEPING BUT AROUSES EASILY ORIENTED X3.OFFERS NO COMPLAINTS,MONITOR SHOWS X-VZL-U-FLUTTER W/ CONTROLLED VENTRICULAR RESPONSE.
[2017-10-06] MEDS ORDERED: IV NS 0.9% 250 ML IV PRN (20:30)
[2017-10-06] MEDS: TAMSULOSIN 0.4 MG CAP.SR.24H PO SCH (22:17)
[2017-10-06] MEDS: TRAZODONE 50 MG TABLET PO SCH (22:17)
--- NOTE | 2017-10-06 23:26 | NUR ---
RT NOTES PT REFUSED BREATHING TX. NO DISTRESS NOTED. PT ON 02 VIA SMILE O2 MASK. WILL CONT TO MONITOR PT FOR REST OF SHIFT.
[2017-10-07] VITALS: BP 116/68
[2017-10-07 04:00] VITALS: BP_SYST 120; BP_SYST 130; BP_DIAS 64
[2017-10-07] MEDS: MEROPENEM 500 MG in IV NS 0.9% 50 ML IV SCH (04:43)
[2017-10-07 06:51] LABS: HEMATOCRIT 34 % (39-51); HEMOGLOBIN 11.5 g/dL (13.5-17.5); LYMPHOCYTES # (AUTO) 0.9 /CMM (0.8-4.8); LYMPHOCYTES % (AUTO) 3.7 % (20.0-44.0); MEAN CORPUSCULAR HGB CONC 34 g/dl (31.0-36.0); MEAN CORPUSCULAR VOLUME 99 fL (80-96); MONOCYTES % (AUTO) 8.5 % (2.0-12.0); NEUTROPHILS # (AUTO) 21.2 /CMM (1.8-8.9); NEUTROPHILS % (AUTO) 87.8 % (43.0-81.0); PLATELET COUNT (AUTO) 307 /CMM (150-450); RED BLOOD CELL COUNT(AUTO) 3.45 MIL/uL (4.5-6.0); WHITE BLOOD COUNT (AUTO) 24.2 K/uL (4.3-11.0)
[2017-10-07 07:03] LABS: CALCIUM, SERUM 8.5 mg/dL (8.5-10.1); CARBON DIOXIDE 30 mmol/L (21-32); CHLORIDE 109 mmol/L (98-107); CREATININE 0.9 mg/dL (0.6-1.3); GLUCOSE 71 mg/dL (74-106); MAGNESIUM 1.9 mg/dL (1.8-2.4); POTASSIUM 4.5 mmol/L (3.5-5.1); SODIUM SERUM 143 mmol/L (136-145); UREA NITROGEN, BLOOD 33 mg/dL (7-18)
[2017-10-07 08:00] VITALS: BP 145/87
[2017-10-07] MEDS: LEVALBUTEROL HCL NEB 1.25 MG/0.5 ML VIAL.NEB NEB SCH ×3 (08:36→22:52)
[2017-10-07] MEDS: ACETYLCYSTEINE 10% SOLN 400 MG/4 ML VIAL NEB SCH ×3 (08:36→22:52)
[2017-10-07] MEDS: IPRATROPIUM NEB FS 0.5 MG/2.5 ML AMPUL.NEB NEB SCH ×3 (08:37→22:52)
[2017-10-07] MEDS: TICAGRELOR 90 MG TABLET PO SCH ×2 (08:42→16:51)
[2017-10-07] MEDS: DIVALPROEX SODIUM 250 MG TABLET.DR PO SCH ×3 (08:43→16:51)
[2017-10-07] MEDS: GABAPENTIN 300 MG CAPSULE PO SCH ×3 (08:43→16:51)
[2017-10-07] MEDS: ISOSORBIDE DINITRATE (20MG) 20 MG TABLET PO SCH ×2 (08:43→16:51)
[2017-10-07] MEDS: DOCUSATE SODIUM 100 MG CAPSULE PO SCH ×2 (08:43→16:51)
[2017-10-07] MEDS: LACTOBACILLUS RHAMNOSUS GG 1 EACH CAP.SPRINK PO SCH ×2 (08:43→16:50)
[2017-10-07] MEDS: AMIODARONE HCL 200 MG TABLET PO SCH ×3 (08:43→16:51)
[2017-10-07] MEDS: AMLODIPINE BESYLATE 5 MG TABLET PO SCH (08:43)
[2017-10-07] MEDS: LamoTRIgine 25 MG TABLET PO SCH ×2 (08:43→16:50)
[2017-10-07] MEDS: NEOMY SULF/BACITRAC ZN/POLY 15 GM TUBE TP SCH ×2 (08:44→20:32)
[2017-10-07] MEDS: VANCOMYCIN 1 GM in IV D5W 250 ML IV SCH (08:44)
[2017-10-07] MEDS: FLUTICASONE PROPIONATE 16 GM BOTTLE NS SCH (08:44)
[2017-10-07] MEDS: NYSTATIN TOP POWDER 15 GM BOTTLE TP SCH ×2 (08:45→16:51)
[2017-10-07] MEDS: MORPHINE SULFATE SR 15 MG TABLET.SA PO SCH ×2 (08:51→20:31)
--- NOTE | 2017-10-07 10:33 | NUR ---
SELF PROPELLED MINING MACHINE OPERATOR NOTE 0720: Received patient awake, A/Ox2. On 10LPM of O2 via mask tolerated well. No respiratory distress noted at this time. With PIVs intact. Moon cath intact, noted with clear isabella colored urine drained to BSD. Afib 120's on the monitor. 0950: S/E by Dr. Bowman, with order of labs in am. 1020: S/E by dr. Mc, with order to may transfer to Tele and DC Meropenem and Vanco, clarified by pharmacy. 1030: S/E by Dr. Richardson, no new order at this time.
[2017-10-07 12:00] VITALS: BP 101/75
[2017-10-07 16:00] VITALS: BP 130/66
--- NOTE | 2017-10-07 19:45 | NUR ---
RN NOTE PATIENT WILL BE UNDER CARE OF ALYX ISMON, REPORT PROVIDED
[2017-10-07 20:00] VITALS: BP 110/52
--- NOTE | 2017-10-07 20:21 | NUR ---
RN NOTES PATIENT IN BED, ALERT AND ORIENTED X 3, ON 10LPM VIA SIMPLE MASK, COMPLAINING OF PAIN TO BACK, NOTED EXCORIATION TO BRIDGE OF NOSE DUE TO USE OF SIMPLE MASK, ON PUREED DIET, KEPT SAFE AND COMFORTABLE, CALL LIGHT WITHIN REACH.
[2017-10-07] MEDS: TAMSULOSIN 0.4 MG CAP.SR.24H PO SCH (22:17)
[2017-10-07] MEDS: TRAZODONE 50 MG TABLET PO SCH (22:24)
[2017-10-08] VITALS (10 sets, daily range): BP systolic 80–138; BP diastolic 51–88
[2017-10-08 06:08] LABS: BASOPHILS % (AUTO) 0.1 % (0.0-2.0); EOSINOPHILS % (AUTO) 0.1 % (0.0-6.0); HEMATOCRIT 33 % (39-51); HEMOGLOBIN 11.1 g/dL (13.5-17.5); LYMPHOCYTES # (AUTO) 0.7 /CMM (0.8-4.8); LYMPHOCYTES % (AUTO) 3.9 % (20.0-44.0); MEAN CORPUSCULAR HGB CONC 34 g/dl (31.0-36.0); MEAN CORPUSCULAR VOLUME 99 fL (80-96); MONOCYTES # (AUTO) 1.6 /CMM (0.1-1.30); NEUTROPHILS # (AUTO) 15.5 /CMM (1.8-8.9); NEUTROPHILS % (AUTO) 86.9 % (43.0-81.0); PLATELET COUNT (AUTO) 304 /CMM (150-450); RDW COEFFICIENT OF VARIATION 14.8 (11.5-15.0); RED BLOOD CELL COUNT(AUTO) 3.32 MIL/uL (4.5-6.0); WHITE BLOOD COUNT (AUTO) 17.9 K/uL (4.3-11.0)
[2017-10-08 06:31] LABS: CALCIUM, SERUM 8.3 mg/dL (8.5-10.1); CARBON DIOXIDE 32 mmol/L (21-32); CHLORIDE 109 mmol/L (98-107); CREATININE 0.9 mg/dL (0.6-1.3); GLUCOSE 73 mg/dL (74-106); POTASSIUM 4.1 mmol/L (3.5-5.1); SODIUM SERUM 144 mmol/L (136-145); UREA NITROGEN, BLOOD 29 mg/dL (7-18)
--- NOTE | 2017-10-08 06:33 | NUR ---
RN NOTES PATIENT IN BED, ALERT AND AWAKE, ON 5 LPM VIA NC, SPO2 95%, TITRATED FROM 10LPM VIA SIMPLE MASK, NO COMPLAIN OF PAIN, ON MS CONTIN Q 12 HRS, KING CATHETER DRAINING WELL, BRIDGE OF NOSE EXCORIATION LEFT OPEN TO AIR, NO ADVERSE CHANGE OF CONDITION DURING SHIFT. NEEDS ATTENDED, CALL LIGHT WITHIN REACH.
--- NOTE | 2017-10-08 07:55 | NUR ---
RN NOTE RECEIVED PATIENT AWAKE IN BED, ALERT AND ORIENTED X 3, HE IS ABLE TO MAKE THINGS KNOWN, AND VERBALIZE NEEDS. BREATHING EVEN AND UNLABORED WITH NO DISTRESS NOTED. CURRENTLY ON 5L O2 NC. ON AVIATION MECHANIC A-FLUTTER HR OF 92. IV SITE INTACT AND PATENT. F/C INTACT AND PATENT WITH ADEQUATE FLOW OF URINE NOTED. DENIES ANY PAIN AT THIS TIME. BED LOCKED AND LOW POSITION, ALL SAFE MEASURES DONE. PLACED CALL LIGHT WITHIN REACH. WILL CONTINUE TO MONITOR.
[2017-10-08] MEDS: LEVALBUTEROL HCL NEB 1.25 MG/0.5 ML VIAL.NEB NEB SCH ×3 (08:01→23:13)
[2017-10-08] MEDS: ACETYLCYSTEINE 10% SOLN 400 MG/4 ML VIAL NEB SCH ×3 (08:01→23:13)
[2017-10-08] MEDS: IPRATROPIUM NEB FS 0.5 MG/2.5 ML AMPUL.NEB NEB SCH ×3 (08:01→23:13)
[2017-10-08] MEDS: NYSTATIN TOP POWDER 15 GM BOTTLE TP SCH ×2 (08:27→16:17)
[2017-10-08] MEDS: NEOMY SULF/BACITRAC ZN/POLY 15 GM TUBE TP SCH ×2 (08:28→21:00)
[2017-10-08] MEDS: FLUTICASONE PROPIONATE 16 GM BOTTLE NS SCH (08:28)
[2017-10-08] MEDS: MORPHINE SULFATE SR 15 MG TABLET.SA PO SCH ×2 (08:29→20:58)
[2017-10-08] MEDS: DOCUSATE SODIUM 100 MG CAPSULE PO SCH ×2 (08:29→16:16)
[2017-10-08] MEDS: GABAPENTIN 300 MG CAPSULE PO SCH ×3 (08:29→16:17)
[2017-10-08] MEDS: LACTOBACILLUS RHAMNOSUS GG 1 EACH CAP.SPRINK PO SCH ×2 (08:30→16:17)
[2017-10-08] MEDS: AMLODIPINE BESYLATE 5 MG TABLET PO SCH (08:30)
[2017-10-08] MEDS: TICAGRELOR 90 MG TABLET PO SCH ×2 (08:30→16:16)
[2017-10-08] MEDS: ISOSORBIDE DINITRATE (20MG) 20 MG TABLET PO SCH ×2 (08:30→16:16)
[2017-10-08] MEDS: LamoTRIgine 25 MG TABLET PO SCH ×2 (08:31→16:16)
[2017-10-08] MEDS: AMIODARONE HCL 200 MG TABLET PO SCH ×3 (08:31→16:17)
[2017-10-08] MEDS: DIVALPROEX SODIUM 250 MG TABLET.DR PO SCH ×3 (08:31→16:16)
--- NOTE | 2017-10-08 19:39 | NUR ---
RN NOTE PATIENT REMAINED STABLE THROUGHOUT SHIFT. NO ACUTE CHANGES OR DISTRESS NOTED. WILL ENDORSE TO NEXT SHIFT TO CONTINUE CONTINUITY OF CARE.
--- NOTE | 2017-10-08 21:08 | NUR ---
FILTRATION PLANT OPERATOR NOTES RECEIVED PT ON BED. ALERT ORIENTED X3. ON TELE MONITOR AFLUTTER WITH BBB 98. ON NASAL CANNULA 4LPM SATURATING 95. NO SIGN OF RESPIRATORY DISTRESS. IV ACCESS ON RWRIST #20 SL AND RIGHT SUBCLAVIAN #20SL PATENT AND INTACT. HEAD OF BED ELEVATED. SIDE RAILS UP. CALL LIGHT WITHIN REACH. WILL CONTINUE TO MONITOR PT CLOSELY.
[2017-10-08] MEDS: TAMSULOSIN 0.4 MG CAP.SR.24H PO SCH (22:08)
[2017-10-08] MEDS: TRAZODONE 50 MG TABLET PO SCH (22:09)
[2017-10-09] VITALS (8 sets, daily range): BP systolic 115–162; BP diastolic 70–91
[2017-10-09 06:24] LABS: EOSINOPHILS % (AUTO) 0.1 % (0.0-6.0); HEMATOCRIT 33 % (39-51); HEMOGLOBIN 11.2 g/dL (13.5-17.5); LYMPHOCYTES # (AUTO) 0.7 /CMM (0.8-4.8); LYMPHOCYTES % (AUTO) 4.1 % (20.0-44.0); MEAN CORPUSCULAR HGB CONC 34 g/dl (31.0-36.0); MEAN CORPUSCULAR VOLUME 98 fL (80-96); MONOCYTES # (AUTO) 1.5 /CMM (0.1-1.30); MONOCYTES % (AUTO) 8.6 % (2.0-12.0); NEUTROPHILS # (AUTO) 14.7 /CMM (1.8-8.9); NEUTROPHILS % (AUTO) 87.2 % (43.0-81.0); PLATELET COUNT (AUTO) 288 /CMM (150-450); RDW COEFFICIENT OF VARIATION 14.7 (11.5-15.0); RED BLOOD CELL COUNT(AUTO) 3.32 MIL/uL (4.5-6.0); WHITE BLOOD COUNT (AUTO) 16.9 K/uL (4.3-11.0)
--- NOTE | 2017-10-09 06:35 | NUR ---
AGRICULTURE MECHANIC NOTES NO ACUTE CHANGES NOTED DURING THE SHIFT. PROVIDED COMFORT AND SAFETY.PT ON RESTRAINTS (SOFT BILATERAL) DUE MEDS GIVEN. WILL ENDORSE TO THE AM NURSE FOR LAURO.
[2017-10-09 06:50] LABS: CALCIUM, SERUM 8.3 mg/dL (8.5-10.1); CARBON DIOXIDE 31 mmol/L (21-32); CHLORIDE 109 mmol/L (98-107); CREATININE 0.9 mg/dL (0.6-1.3); GLUCOSE 72 mg/dL (74-106); POTASSIUM 4.2 mmol/L (3.5-5.1); SODIUM SERUM 143 mmol/L (136-145); UREA NITROGEN, BLOOD 24 mg/dL (7-18)
--- NOTE | 2017-10-09 07:50 | NUR ---
RN NOTE RECEIVED PATIENT AWAKE IN BED, ALERT AND ORIENTED X 3, HE IS ABLE TO VERBALIZE NEEDS. BREATHING EVEN AND UNLABORED WITH NO DISTRESS NOTED. CURRENTLY ON 5L O2 NC. ON STEVEDORING SUPERVISOR A-FLUTTER HR OF 105. IV SITE INTACT AND PATENT. F/C INTACT AND PATENT WITH ADEQUATE FLOW OF URINE NOTED. DENIES ANY PAIN AT THIS TIME. BED LOCKED AND LOW POSITION, ALL SAFE MEASURES DONE. PLACED CALL LIGHT WITHIN REACH. WILL CONTINUE TO MONITOR.
[2017-10-09] MEDS: IPRATROPIUM NEB FS 0.5 MG/2.5 ML AMPUL.NEB NEB SCH ×3 (08:04→23:11)
[2017-10-09] MEDS: ACETYLCYSTEINE 10% SOLN 400 MG/4 ML VIAL NEB SCH ×3 (08:04→23:11)
[2017-10-09] MEDS: AMIODARONE HCL 200 MG TABLET PO SCH ×3 (08:09→16:39)
[2017-10-09] MEDS: TICAGRELOR 90 MG TABLET PO SCH ×2 (08:09→16:38)
[2017-10-09] MEDS: AMLODIPINE BESYLATE 5 MG TABLET PO SCH (08:09)
[2017-10-09] MEDS: GABAPENTIN 300 MG CAPSULE PO SCH ×3 (08:09→16:38)
[2017-10-09] MEDS: ISOSORBIDE DINITRATE (20MG) 20 MG TABLET PO SCH ×2 (08:10→16:39)
[2017-10-09] MEDS: DIVALPROEX SODIUM 250 MG TABLET.DR PO SCH ×3 (08:10→16:38)
[2017-10-09] MEDS: DOCUSATE SODIUM 100 MG CAPSULE PO SCH ×2 (08:10→16:38)
[2017-10-09] MEDS: LamoTRIgine 25 MG TABLET PO SCH ×2 (08:10→16:38)
[2017-10-09] MEDS: LACTOBACILLUS RHAMNOSUS GG 1 EACH CAP.SPRINK PO SCH ×2 (08:10→16:38)
[2017-10-09] MEDS: NEOMY SULF/BACITRAC ZN/POLY 15 GM TUBE TP SCH ×2 (08:12→21:21)
[2017-10-09] MEDS: NYSTATIN TOP POWDER 15 GM BOTTLE TP SCH ×2 (08:12→16:42)
[2017-10-09] MEDS: MORPHINE SULFATE SR 15 MG TABLET.SA PO SCH ×2 (08:12→21:18)
[2017-10-09] MEDS: FLUTICASONE PROPIONATE 16 GM BOTTLE NS SCH (08:14)
[2017-10-09] MEDS: LEVALBUTEROL HCL NEB 1.25 MG/0.5 ML VIAL.NEB NEB SCH ×3 (08:14→23:11)
--- NOTE | 2017-10-09 18:59 | NUR ---
RN NOTE PATIENT REMAINED STABLE THROUGHOUT SHIFT. NO ACUTE CHANGES OR DISTRESS NOTED. WILL ENDORSE TO NEXT SHIFT TO CONTINUE CONTINUITY OF CARE.
--- NOTE | 2017-10-09 19:15 | NUR ---
RN OPENING NOTES: RECEIVED PATIENT ON BED AWAKE AND ALERT, ON O2 VIA NC AT 4LPM, NOT IN APPARENT DISTRESS. PATIENT JUST FINISHED DINNER; ON 1200 FLUID RESTRICTIONS. ASPIRATION PRECAUTIONS ENSURED AT ALL TIMES. NOTED WITH MINIMAL PRODUCTIVE COUGH. WITH FC INTACT, TO A CLOSED SYSTEM, DRAINING VIA GRAVITY. NO COMPLAINTS OF PAIN AT THIS TIME. SKIN CARE RENDERED. SAFETY MEASURES ENSURED. BED ALARM ON, AND CALL LIGHT WITHIN REACH AT ALL TIMES. CONTINUOUSLY MONITORED.
[2017-10-09] MEDS: TAMSULOSIN 0.4 MG CAP.SR.24H PO SCH (21:18)
[2017-10-09] MEDS: TRAZODONE 50 MG TABLET PO SCH (21:18)
[2017-10-10] VITALS: BP_SYST 135; BP_DIAS 77; BP_DIAS 79
[2017-10-10 04:00] VITALS: BP 138/82
--- NOTE | 2017-10-10 04:00 | NUR ---
RN NOTES: OFFERED BED BATH. PATIENT REFUSING. EXPLAINED RISKS AND BENEFITS, PATIENT STARTED TO BE AGITATED AND SCREAMS "LEAVE ME ALONE!" TO RE OFFER AM CARE AGAIN.
--- NOTE | 2017-10-10 06:26 | NUR ---
RN CLOSING NOTES: PATIENT REMAINED IN BED KEPT ON O2, NOT IN APPARENT DISTRESS. REFUSING AM CARE AND LINEN CHANGE PERSISTENTLY DESPITE ENCOURAGEMENT AND EXPLANATION. TO ENDORSE TO RE OFFER LATER ON IN AM. SAFETY MEASURES ENSURED AT ALL TIMES. FC REMAINED INTACT. CONTINUOUSLY MONITORED. TO ENDORSE TO AM SHIFT RN.
[2017-10-10 06:32] LABS: CALCIUM, SERUM 8.1 mg/dL (8.5-10.1); CARBON DIOXIDE 29 mmol/L (21-32); CHLORIDE 108 mmol/L (98-107); CREATININE 0.9 mg/dL (0.6-1.3); GLUCOSE 70 mg/dL (74-106); MAGNESIUM 1.8 mg/dL (1.8-2.4); POTASSIUM 4.3 mmol/L (3.5-5.1); SODIUM SERUM 141 mmol/L (136-145); UREA NITROGEN, BLOOD 23 mg/dL (7-18)
[2017-10-10 06:41] LABS: HEMATOCRIT 32 % (39-51); HEMOGLOBIN 10.8 g/dL (13.5-17.5); LYMPHOCYTES # (AUTO) 0.7 /CMM (0.8-4.8); LYMPHOCYTES % (AUTO) 5.5 % (20.0-44.0); MEAN CORPUSCULAR HGB CONC 34 g/dl (31.0-36.0); MEAN CORPUSCULAR VOLUME 99 fL (80-96); MONOCYTES # (AUTO) 1.3 /CMM (0.1-1.30); MONOCYTES % (AUTO) 10.4 % (2.0-12.0); NEUTROPHILS # (AUTO) 10.3 /CMM (1.8-8.9); NEUTROPHILS % (AUTO) 83.1 % (43.0-81.0); PLATELET COUNT (AUTO) 287 /CMM (150-450); RDW COEFFICIENT OF VARIATION 15.1 (11.5-15.0); RED BLOOD CELL COUNT(AUTO) 3.22 MIL/uL (4.5-6.0); WHITE BLOOD COUNT (AUTO) 12.3 K/uL (4.3-11.0)
--- NOTE | 2017-10-10 07:55 | NUR ---
RN NOTE RECEIVED PATIENT AWAKE IN BED, ALERT AND ORIENTED X 2, HE IS ABLE TO VERBALIZE NEEDS. BREATHING EVEN AND UNLABORED WITH NO DISTRESS NOTED. CURRENTLY ON 4L O2 VIA NC. ON SUPPORT MANAGER A-FIB HR OF 105. IV SITE INTACT AND PATENT. F/C INTACT AND PATENT WITH ADEQUATE FLOW OF URINE NOTED. DENIES ANY PAIN AT THIS TIME. BED LOCKED AND LOW POSITION, ALL SAFETY MEASURES DONE. PLACED CALL LIGHT WITHIN REACH. WILL CONTINUE TO MONITOR.
[2017-10-10 08:00] VITALS: BP 136/85
[2017-10-10] MEDS: DOCUSATE SODIUM 100 MG CAPSULE PO SCH (08:15)
[2017-10-10] MEDS: MORPHINE SULFATE SR 15 MG TABLET.SA PO SCH (08:16)
[2017-10-10] MEDS: LamoTRIgine 25 MG TABLET PO SCH (08:16)
[2017-10-10] MEDS: FLUTICASONE PROPIONATE 16 GM BOTTLE NS SCH (08:16)
[2017-10-10] MEDS: GABAPENTIN 300 MG CAPSULE PO SCH ×2 (08:17→12:13)
[2017-10-10] MEDS: ISOSORBIDE DINITRATE (20MG) 20 MG TABLET PO SCH (08:17)
[2017-10-10] MEDS: AMLODIPINE BESYLATE 5 MG TABLET PO SCH (08:17)
[2017-10-10] MEDS: DIVALPROEX SODIUM 250 MG TABLET.DR PO SCH ×2 (08:18→12:13)
[2017-10-10] MEDS: TICAGRELOR 90 MG TABLET PO SCH (08:18)
[2017-10-10] MEDS: LACTOBACILLUS RHAMNOSUS GG 1 EACH CAP.SPRINK PO SCH (08:18)
[2017-10-10] MEDS: AMIODARONE HCL 200 MG TABLET PO SCH ×2 (08:18→12:13)
[2017-10-10] MEDS: NYSTATIN TOP POWDER 15 GM BOTTLE TP SCH (08:18)
[2017-10-10] MEDS: NEOMY SULF/BACITRAC ZN/POLY 15 GM TUBE TP SCH (08:19)
[2017-10-10] MEDS: ACETYLCYSTEINE 10% SOLN 400 MG/4 ML VIAL NEB SCH (08:31)
[2017-10-10] MEDS: IPRATROPIUM NEB FS 0.5 MG/2.5 ML AMPUL.NEB NEB SCH (08:31)
[2017-10-10] MEDS: LEVALBUTEROL HCL NEB 1.25 MG/0.5 ML VIAL.NEB NEB SCH (08:31)
[2017-10-10 12:13] VITALS: BP 132/64
--- NOTE | 2017-10-10 13:50 | NUR ---
RN NOTE 77 YEAR OLD MALE [facility]ED TO [facility] IN ST[facility]. COMPLIANT WITH MEDICATIONS, COOPERATIVE WITH TREATMENT PLANS. BEHAVIOR IMPROVED, MEDICAL TREATMENT PLAN DEFERRED FOR CONTINUAL MONITORING. EDUCATED PATIENT ABOUT AFTER CARE PLAN AND COPIES PROVIDED. RETURNED PERSONAL BELONGINGS TO PATIENT. MEDICATION RECONCILED, REPORT GIVEN TO TERESE AT [facility] FOR CONTINUITY OF CARE. PATIENT UNABLE TO SIGN, BUT WAS ABLE TO GET SECONDARY CO SIGN SIGNATURE FROM ANOTHER RN. WOUND PICTURES TAKEN AND DOCUMENTED IN CHART. F/C WAS REMOVED AND RIGHT SHOULDER AND RIGHT WRIST IV SITE REMOVED, BOTH CATHETER INTACT. PATIENT LEFT THE UNIT AT 1350 VIA AMBULANCE.
== END 2017-10-10 14:33 | DRG 871 ==
LOC: ER 04:50 → TELE 09:27 → ICU 21:24 → TELE-TD 10-06 18:05 → TELE1 10-07 09:51 → MEDSG1 10-10 10:46
PROVIDERS: ADMIT Legal Medicine; ATTEND Legal Medicine
PROC: 5A09557 Assistance with Respiratory Ventilation, Greater than 96 Consecutive Hours, Continuous Positive Airway Pressure (ICD-10-PCS; principal; 2017-09-25)
DX: A41.9 Sepsis, unspecified organism (principal); J69.0 Pneumonitis due to inhalation of food and vomit; N17.0 Acute kidney failure with tubular necrosis; E87.0 Hyperosmolality and hypernatremia; J96.01 Acute respiratory failure with hypoxia; J96.02 Acute respiratory failure with hypercapnia; I48.91 Unspecified atrial fibrillation; G20 Parkinson's disease; E86.0 Dehydration; E87.5 Hyperkalemia; S51.012A Laceration without foreign body of left elbow, initial encounter; D72.829 Elevated white blood cell count, unspecified; Q61.9 Cystic kidney disease, unspecified; J44.0 Chronic obstructive pulmonary disease with (acute) lower respiratory infection; N39.0 Urinary tract infection, site not specified; I48.92 Unspecified atrial flutter; L89.890 Pressure ulcer of other site, unstageable; I49.5 Sick sinus syndrome; E03.9 Hypothyroidism, unspecified; F17.210 Nicotine dependence, cigarettes, uncomplicated; F32.9 Major depressive disorder, single episode, unspecified; W18.30XA Fall on same level, unspecified, initial encounter; R55 Syncope and collapse; F41.9 Anxiety disorder, unspecified; G89.4 Chronic pain syndrome; I10 Essential (primary) hypertension; I25.10 Atherosclerotic heart disease of native coronary artery without angina pectoris; J44.9 Chronic obstructive pulmonary disease, unspecified; K59.00 Constipation, unspecified; M19.90 Unspecified osteoarthritis, unspecified site; Z88.0 Allergy status to penicillin; I73.9 Peripheral vascular disease, unspecified; R65.20 Severe sepsis without septic shock; S51.811A Laceration without foreign body of right forearm, initial encounter; Y92.89 Other specified places as the place of occurrence of the external cause; L98.8 Other specified disorders of the skin and subcutaneous tissue; L89.892 Pressure ulcer of other site, stage 2; Z91.81 History of falling; Z95.5 Presence of coronary angioplasty implant and graft
CPT/HCPCS: 36415; 36600; 70450-TC; 71045-TC; 76770-TC; 80048-TC; 80053-TC; 80061-TC; 80076-TC; 80202-TC; 81000-TC; 82306; 82728-TC; 82803-TC; 82962-TC; 83540-TC; 83735-TC; 83935-TC; 84100-TC; 84155; 84165; 84439-TC; 84443-TC; 84484-TC; 85025-TC; 85652-TC; 85730-TC; 87040-TC; 87070-TC; 87081-TC; 87086-TC; 90715; 93307-TC; 93880-TC; 93970-TC; 94762-TC; 94799-TC; A4216; A4349; A4606; A6253; A6402; J0282; J0360; J1940; J2185; J2270; J2310; J2543; J2920; J2930; J3370; J3490; J7030; J7040; J7050; J7060; J7070; Z7610

== ENCOUNTER 2018-10-11 13:30 | Inpatient (IN) | payer MEDICARE, OTHER, MEDICAID ==
[~2018-10-11] VITALS: Ht 182.9 cm; Wt 81.6 kg
[~2018-10-11 13:30] MED LIST changes: +AMIO200T4 PO; +AMLO5TAB9 PO; +CHOL100034 PO; +CYAN-51 PO; -DUTA0.5C PO; +FLUT16SP BNOSTRILS; -HYDR-4077 PO; +HYDR-4384 PO; -HYDR-552 PO; -IPRA3AMP23 IH; +ISOS20TA8 PO; -LAMO25TA PO; +LAMO25TA10 PO; -LEVO500T75 PO; +MULT-213 PO; -PANT40TA4 PO; +TEMA15CA PO; +TICA90TA PO; -TOLT4CAP PO
[2018-10-11] MEDS ORDERED: DILTIAZEM HCL 50 MG IV IV ONE ×2 (14:00→17:30)
[2018-10-11] MEDS ORDERED: DILTIAZEM HCL 25 MG IV ONE (14:22)
[2018-10-11] MEDS ORDERED: METH4TAB PO (14:28)
[2018-10-11] MEDS ORDERED: ISOS60TA4 PO (14:28)
[2018-10-11] MEDS ORDERED: QUET100T PO (14:28)
[2018-10-11] MEDS ORDERED: ATOR20TA PO (14:28)
[2018-10-11] MEDS ORDERED: BUDE10.2 IH (14:28)
[2018-10-11] MEDS ORDERED: LORA10TA68 PO (14:28)
[2018-10-11] MEDS ORDERED: IV NS 0.9% 1,000 ML BAG IV ONE (14:30)
[2018-10-11] MEDS ORDERED: AZITHROMYCIN 500 MG in IV D5W 250 ML IV ONE (14:30)
[2018-10-11] MEDS ORDERED: CEFTRIAXONE 1GM BAG (ER ONLY) 50 ML IV ONE ×2 (14:30→15:13)
[2018-10-11 14:39] LABS: BASOPHILS % (AUTO) 0.6 % (0.0-2.0); HEMATOCRIT 37 % (39-51); HEMOGLOBIN 12.4 g/dL (13.5-17.5); LYMPHOCYTES # (AUTO) 1.1 /CMM (0.8-4.8); LYMPHOCYTES % (AUTO) 12.9 % (20.0-44.0); MEAN CORPUSCULAR HGB CONC 34 g/dl (31.0-36.0); MEAN CORPUSCULAR VOLUME 100 fL (80-96); MONOCYTES # (AUTO) 1.8 /CMM (0.1-1.30); MONOCYTES % (AUTO) 21.9 % (2.0-12.0); NEUTROPHILS # (AUTO) 5.1 /CMM (1.8-8.9); NEUTROPHILS % (AUTO) 62.6 % (43.0-81.0); PLATELET COUNT (AUTO) 251 /CMM (150-450); RED BLOOD CELL COUNT(AUTO) 3.67 MIL/uL (4.5-6.0); WHITE BLOOD COUNT (AUTO) 8.2 K/uL (4.3-11.0)
[2018-10-11 14:45] LABS: CALCIUM, SERUM 8.6 mg/dL (8.5-10.1); CARBON DIOXIDE 27 mmol/L (21-32); CHLORIDE 107 mmol/L (98-107); CREATININE 1.3 mg/dL (0.6-1.3); GLUCOSE 113 mg/dL (74-106); POTASSIUM 4.4 mmol/L (3.5-5.1); SODIUM SERUM 142 mmol/L (136-145); UREA NITROGEN, BLOOD 24 mg/dL (7-18)
[2018-10-11 14:57] LABS: ALBUMIN 2.9 g/dL (3.4-5.0); BILIRUBIN,DIRECT 0.1 mg/dL (0.0-0.2); BILIRUBIN,TOTAL 0.4 mg/dL (0.2-1.0); TOTAL PROTEIN, SERUM 6.9 g/dL (6.4-8.2)
[2018-10-11 15:15] LABS: ABG BASE EXCESS 4.1 mmol/L; ABG OXYGEN SATURATION 89.7 % (92.0-98.5); ABG PCO2 41.3 mmHg (35.0-45.0); ABG PH 7.455 (7.350-7.450); ABG PO2 60.8 mmHg (75.0-100.0); AaDO2 39.5 mmHg; MetHb 0.4 % (0.0-1.5); O2Hb 88.4 % (94.0-97.0); SITE, ABG Left Radial; VENT MODE, BG RA
[2018-10-11 15:25] LABS: BAND % (MANUAL) 1 % (0.0-5.0); EOSINOPHILS % (MANUAL) 1 % (0-4); LYMPHOCYTES % (MANUAL) 12 % (16-48); MONOCYTES % (MANUAL) 19 % (0-11.0); NEUTROPHILS % (MANUAL) 67 (42-76)
[2018-10-11] MEDS ORDERED: IOHEXOL-350 100 ML VIAL IV ONE (16:06)
[2018-10-11] MEDS ORDERED: CT SWABBABLE VALVE TRANS SET 1 EA INFUS.SET MC ONE (16:06)
[2018-10-11] MEDS ORDERED: IV NS 0.9% 250 ML IV ONE (16:06)
[2018-10-11 16:15] LABS: APPEARANCE,URINE Clear (CLEAR); BILIRUBIN,URINE Negative (NEGATIVE); BLOOD, URINE Negative Ery/uL (NEGATIVE); COLOR,URINE Yellow (YELLOW); KETONES,URINE Negative (NEGATIVE); LEUKOCYTE ESTERASE ,URINE Negative (NEGATIVE); NITRITE, URINE Negative (NEGATIVE); PH,URINE 7.5 (5.0-8.0); PROTEIN,URINE 30 mg/dl (NEGATIVE); UGLUCOSE Negative (NEGATIVE); UROBILINOGEN,URINE 0.2 EU/dL (0.2)
[2018-10-11 20:00] VITALS: BP 135/107
[2018-10-11] MEDS ORDERED: HYDROCODONE/APAP 5/325MG 1 EACH TABLET PO PRN (20:00)
[2018-10-11] MEDS ORDERED: AZITHROMYCIN 250 MG TABLET PO ONE (21:00)
[2018-10-11] MEDS: CEFTRIAXONE 1 G in IV D5W 50 ML IV SCH (21:36)
[2018-10-11] MEDS: TAMSULOSIN 0.4 MG CAP.SR.24H PO SCH (21:36)
[2018-10-11] MEDS: QUETIAPINE FUMARATE 100 MG TABLET PO SCH (21:36)
[2018-10-11] MEDS: ATORVASTATIN 10 MG TABLET PO SCH (21:37)
[2018-10-11] MEDS: TRAZODONE 50 MG TABLET PO SCH (21:37)
[2018-10-11] MEDS: GABAPENTIN 300 MG CAPSULE PO SCH (21:41)
[2018-10-11] MEDS: predniSONE 20 MG TABLET PO SCH (21:41)
[2018-10-11] MEDS ORDERED: DILTIAZEM HCL 30 MG TABLET PO SCH (22:00)
[2018-10-11] MEDS ORDERED: ATORVASTATIN 10 MG TABLET PO SCH (22:00)
[2018-10-11] MEDS: FUROSEMIDE 20 MG/2 ML VIAL IV SCH (23:09)
[2018-10-11] MEDS: NITROGLYCERIN PACKET 1 GM PACKET TOP SCH (23:11)
[2018-10-12] VITALS: BP 111/107
[2018-10-12 04:00] VITALS: BP 134/90
[2018-10-12] MEDS: NITROGLYCERIN PACKET 1 GM PACKET TOP SCH ×4 (05:27→23:38)
[2018-10-12] MEDS: FUROSEMIDE 20 MG/2 ML VIAL IV SCH (05:27)
[2018-10-12 08:00] VITALS: BP 142/88
[2018-10-12 08:00] LABS: BASOPHILS % (AUTO) 0.4 % (0.0-2.0); EOSINOPHILS % (AUTO) 0.3 % (0.0-6.0); HEMATOCRIT 30 % (39-51); HEMOGLOBIN 10.4 g/dL (13.5-17.5); LYMPHOCYTES # (AUTO) 0.6 /CMM (0.8-4.8); MEAN CORPUSCULAR HGB CONC 35 g/dl (31.0-36.0); MEAN CORPUSCULAR VOLUME 98 fL (80-96); MONOCYTES # (AUTO) 0.3 /CMM (0.1-1.30); MONOCYTES % (AUTO) 3.6 % (2.0-12.0); NEUTROPHILS # (AUTO) 7.9 /CMM (1.8-8.9); NEUTROPHILS % (AUTO) 88.7 % (43.0-81.0); PLATELET COUNT (AUTO) 244 /CMM (150-450); RED BLOOD CELL COUNT(AUTO) 3.02 MIL/uL (4.5-6.0); WHITE BLOOD COUNT (AUTO) 8.9 K/uL (4.3-11.0)
[2018-10-12 08:17] LABS: CARBON DIOXIDE 24 mmol/L (21-32); CHLORIDE 109 mmol/L (98-107); CREATININE 1.4 mg/dL (0.6-1.3); GLUCOSE 125 mg/dL (74-106); POTASSIUM 4.3 mmol/L (3.5-5.1); SODIUM SERUM 145 mmol/L (136-145); UREA NITROGEN, BLOOD 24 mg/dL (7-18)
[2018-10-12] MEDS: GABAPENTIN 300 MG CAPSULE PO SCH ×3 (08:42→17:04)
[2018-10-12] MEDS: ISOSORBIDE MONONITRATE (30MG) 30 MG TAB.SR.24H PO SCH (08:43)
[2018-10-12] MEDS: DIVALPROEX SODIUM 250 MG TABLET.DR PO SCH ×2 (08:43→17:05)
[2018-10-12] MEDS: CHOLECALCIFEROL 1,000 UNIT TABLET (VIT D3) PO SCH (08:43)
[2018-10-12] MEDS: PANTOPRAZOLE 40 MG TABLET.DR PO SCH (08:43)
[2018-10-12] MEDS: LORATADINE 10 MG TABLET PO SCH (08:44)
[2018-10-12] MEDS: predniSONE 20 MG TABLET PO SCH (08:44)
[2018-10-12] MEDS: LamoTRIgine 25 MG TABLET PO SCH ×2 (08:44→17:04)
[2018-10-12] MEDS ORDERED: APIXABAN 5 MG TABLET PO SCH (09:00)
[2018-10-12] MEDS: HYDROCODONE/APAP 5/325MG 1 EACH TABLET PO PRN ×2 (09:00→15:01)
[2018-10-12] MEDS ORDERED: CT SWABBABLE VALVE TRANS SET 1 EA INFUS.SET MC ONE (09:22)
[2018-10-12] MEDS ORDERED: IV NS 0.9% 250 ML IV ONE (09:22)
[2018-10-12] MEDS ORDERED: IOHEXOL-350 100 ML VIAL IV ONE (09:22)
[2018-10-12] MEDS ORDERED: Z GUARD REMEDY 2 OZ OINT TP PRN (12:30)
[2018-10-12] MEDS: APIXABAN 5 MG TABLET PO SCH ×2 (13:23→20:36)
[2018-10-12] MEDS: DILTIAZEM HCL CD 240 MG PO SCH (13:29)
[2018-10-12] MEDS ORDERED: DIGOXIN ELIX UDC 0.25 MG/5 ML UDC GT SCH (13:30)
[2018-10-12] MEDS: DIGOXIN 0.25 MG TABLET PO SCH (13:54)
[2018-10-12 16:08] VITALS: BP 115/61
[2018-10-12] MEDS: FLUTICASONE PROPIONATE 16 GM BOTTLE NS SCH (17:04)
[2018-10-12 20:00] VITALS: BP 132/85
[2018-10-12] MEDS: CEFTRIAXONE 1 G in IV D5W 50 ML IV SCH (20:28)
[2018-10-12] MEDS: QUETIAPINE FUMARATE 100 MG TABLET PO SCH (21:01)
[2018-10-12] MEDS: TAMSULOSIN 0.4 MG CAP.SR.24H PO SCH (21:01)
[2018-10-12] MEDS: ATORVASTATIN 10 MG TABLET PO SCH (21:02)
[2018-10-12] MEDS: TRAZODONE 50 MG TABLET PO SCH (21:02)
[2018-10-13] VITALS (7 sets, daily range): BP systolic 105–145; BP diastolic 61–155
[2018-10-13] MEDS: NITROGLYCERIN PACKET 1 GM PACKET TOP SCH ×3 (06:09→17:52)
[2018-10-13] MEDS: HYDROCODONE/APAP 5/325MG 1 EACH TABLET PO PRN ×3 (06:45→21:10)
[2018-10-13 07:24] LABS: BASOPHILS % (AUTO) 0.3 % (0.0-2.0); EOSINOPHILS % (AUTO) 0.2 % (0.0-6.0); HEMATOCRIT 38 % (39-51); HEMOGLOBIN 12.5 g/dL (13.5-17.5); LYMPHOCYTES # (AUTO) 1.5 /CMM (0.8-4.8); LYMPHOCYTES % (AUTO) 10.6 % (20.0-44.0); MEAN CORPUSCULAR HGB CONC 33 g/dl (31.0-36.0); MEAN CORPUSCULAR VOLUME 99 fL (80-96); MONOCYTES # (AUTO) 2.5 /CMM (0.1-1.30); MONOCYTES % (AUTO) 17.8 % (2.0-12.0); NEUTROPHILS % (AUTO) 71.1 % (43.0-81.0); PLATELET COUNT (AUTO) 277 /CMM (150-450); WHITE BLOOD COUNT (AUTO) 14.1 K/uL (4.3-11.0)
[2018-10-13 07:42] LABS: CALCIUM, SERUM 8.4 mg/dL (8.5-10.1); CARBON DIOXIDE 24 mmol/L (21-32); CHLORIDE 109 mmol/L (98-107); CREATININE 1.4 mg/dL (0.6-1.3); GLUCOSE 100 mg/dL (74-106); MAGNESIUM 2.2 mg/dL (1.8-2.4); POTASSIUM 3.9 mmol/L (3.5-5.1); SODIUM SERUM 144 mmol/L (136-145); UREA NITROGEN, BLOOD 30 mg/dL (7-18)
[2018-10-13] MEDS: PANTOPRAZOLE 40 MG TABLET.DR PO SCH (08:22)
[2018-10-13] MEDS: DILTIAZEM HCL CD 240 MG PO SCH (08:51)
[2018-10-13] MEDS: CHOLECALCIFEROL 1,000 UNIT TABLET (VIT D3) PO SCH (08:52)
[2018-10-13] MEDS: ISOSORBIDE MONONITRATE (30MG) 30 MG TAB.SR.24H PO SCH (08:52)
[2018-10-13] MEDS: LORATADINE 10 MG TABLET PO SCH (08:52)
[2018-10-13] MEDS: LamoTRIgine 25 MG TABLET PO SCH ×2 (08:52→16:20)
[2018-10-13] MEDS: DIVALPROEX SODIUM 250 MG TABLET.DR PO SCH ×2 (08:52→16:20)
[2018-10-13] MEDS: GABAPENTIN 300 MG CAPSULE PO SCH ×3 (08:52→16:20)
[2018-10-13] MEDS: predniSONE 20 MG TABLET PO SCH (08:52)
[2018-10-13] MEDS: FLUTICASONE PROPIONATE 16 GM BOTTLE NS SCH ×2 (08:55→16:21)
[2018-10-13] MEDS: APIXABAN 5 MG TABLET PO SCH ×2 (08:56→16:21)
[2018-10-13] MEDS: DIGOXIN 0.25 MG TABLET PO SCH (12:25)
[2018-10-13] MEDS ORDERED: DIGOXIN ELIX UDC 0.25 MG/5 ML UDC PO SCH (13:00)
[2018-10-13] MEDS: QUETIAPINE FUMARATE 100 MG TABLET PO SCH (21:04)
[2018-10-13] MEDS: TAMSULOSIN 0.4 MG CAP.SR.24H PO SCH (21:04)
[2018-10-13] MEDS: CEFTRIAXONE 1 G in IV D5W 50 ML IV SCH (21:04)
[2018-10-13] MEDS: ATORVASTATIN 10 MG TABLET PO SCH (21:05)
[2018-10-13] MEDS: TRAZODONE 50 MG TABLET PO SCH (21:05)
[2018-10-14] VITALS: BP 137/68
[2018-10-14] MEDS: NITROGLYCERIN PACKET 1 GM PACKET TOP SCH ×4 (00:54→18:17)
[2018-10-14] MEDS: HYDROCODONE/APAP 5/325MG 1 EACH TABLET PO PRN ×4 (03:42→22:31)
[2018-10-14 04:00] VITALS: BP 138/68
[2018-10-14 07:04] LABS: BASOPHILS % (AUTO) 0.2 % (0.0-2.0); EOSINOPHILS % (AUTO) 0.3 % (0.0-6.0); HEMATOCRIT 37 % (39-51); HEMOGLOBIN 12.5 g/dL (13.5-17.5); LYMPHOCYTES # (AUTO) 1.5 /CMM (0.8-4.8); LYMPHOCYTES % (AUTO) 10.6 % (20.0-44.0); MEAN CORPUSCULAR HGB CONC 33 g/dl (31.0-36.0); MEAN CORPUSCULAR VOLUME 98 fL (80-96); MONOCYTES # (AUTO) 2.3 /CMM (0.1-1.30); NEUTROPHILS # (AUTO) 10.4 /CMM (1.8-8.9); NEUTROPHILS % (AUTO) 72.9 % (43.0-81.0); PLATELET COUNT (AUTO) 288 /CMM (150-450); RED BLOOD CELL COUNT(AUTO) 3.81 MIL/uL (4.5-6.0); WHITE BLOOD COUNT (AUTO) 14.3 K/uL (4.3-11.0)
[2018-10-14 07:18] LABS: CALCIUM, SERUM 8.1 mg/dL (8.5-10.1); CARBON DIOXIDE 27 mmol/L (21-32); CHLORIDE 110 mmol/L (98-107); CREATININE 1.2 mg/dL (0.6-1.3); GLUCOSE 90 mg/dL (74-106); MAGNESIUM 2.1 mg/dL (1.8-2.4); POTASSIUM 4.2 mmol/L (3.5-5.1); SODIUM SERUM 144 mmol/L (136-145); UREA NITROGEN, BLOOD 31 mg/dL (7-18)
[2018-10-14 08:00] VITALS: BP 161/72
[2018-10-14 08:12] LABS: LYMPHOCYTES % (MANUAL) 10 % (16-48); MONOCYTES % (MANUAL) 13 % (0-11.0); NEUTROPHILS % (MANUAL) 77 (42-76)
[2018-10-14] MEDS: PANTOPRAZOLE 40 MG TABLET.DR PO SCH (08:43)
[2018-10-14] MEDS: DIVALPROEX SODIUM 250 MG TABLET.DR PO SCH ×2 (08:43→16:07)
[2018-10-14] MEDS: LORATADINE 10 MG TABLET PO SCH (08:43)
[2018-10-14] MEDS: GABAPENTIN 300 MG CAPSULE PO SCH ×3 (08:43→16:07)
[2018-10-14] MEDS: FLUTICASONE PROPIONATE 16 GM BOTTLE NS SCH ×2 (08:43→16:07)
[2018-10-14] MEDS: predniSONE 20 MG TABLET PO SCH (08:43)
[2018-10-14] MEDS: ISOSORBIDE MONONITRATE (30MG) 30 MG TAB.SR.24H PO SCH (08:44)
[2018-10-14] MEDS: CHOLECALCIFEROL 1,000 UNIT TABLET (VIT D3) PO SCH (08:45)
[2018-10-14] MEDS: LamoTRIgine 25 MG TABLET PO SCH ×2 (08:45→16:07)
[2018-10-14] MEDS: DILTIAZEM HCL CD 240 MG PO SCH (08:45)
[2018-10-14] MEDS: APIXABAN 5 MG TABLET PO SCH ×2 (08:46→16:12)
[2018-10-14 12:00] VITALS: BP_SYST 127; BP_SYST 144; BP_DIAS 68; BP_DIAS 78
[2018-10-14] MEDS: DIGOXIN 0.25 MG TABLET PO SCH (13:06)
[2018-10-14 16:00] VITALS: BP 144/73
[2018-10-14 20:00] VITALS: BP 141/84
[2018-10-14] MEDS: CEFTRIAXONE 1 G in IV D5W 50 ML IV SCH (20:21)
[2018-10-14] MEDS: ATORVASTATIN 10 MG TABLET PO SCH (21:13)
[2018-10-14] MEDS: QUETIAPINE FUMARATE 100 MG TABLET PO SCH (21:13)
[2018-10-14] MEDS: TAMSULOSIN 0.4 MG CAP.SR.24H PO SCH (21:13)
[2018-10-14] MEDS: TRAZODONE 50 MG TABLET PO SCH (21:14)
[2018-10-15] VITALS: BP 133/70
[2018-10-15] MEDS: NITROGLYCERIN PACKET 1 GM PACKET TOP SCH ×4 (00:43→17:13)
[2018-10-15 04:00] VITALS: BP 153/80
[2018-10-15] MEDS: HYDROCODONE/APAP 5/325MG 1 EACH TABLET PO PRN ×3 (04:35→22:50)
[2018-10-15 06:56] LABS: BASOPHILS % (AUTO) 0.2 % (0.0-2.0); EOSINOPHILS % (AUTO) 0.5 % (0.0-6.0); HEMATOCRIT 38 % (39-51); HEMOGLOBIN 12.5 g/dL (13.5-17.5); LYMPHOCYTES # (AUTO) 1.6 /CMM (0.8-4.8); LYMPHOCYTES % (AUTO) 12.5 % (20.0-44.0); MEAN CORPUSCULAR HGB CONC 33 g/dl (31.0-36.0); MEAN CORPUSCULAR VOLUME 99 fL (80-96); MONOCYTES # (AUTO) 1.7 /CMM (0.1-1.30); MONOCYTES % (AUTO) 13.5 % (2.0-12.0); NEUTROPHILS # (AUTO) 9.1 /CMM (1.8-8.9); NEUTROPHILS % (AUTO) 73.3 % (43.0-81.0); PLATELET COUNT (AUTO) 287 /CMM (150-450); RED BLOOD CELL COUNT(AUTO) 3.82 MIL/uL (4.5-6.0); WHITE BLOOD COUNT (AUTO) 12.4 K/uL (4.3-11.0)
[2018-10-15 07:11] LABS: CARBON DIOXIDE 26 mmol/L (21-32); CHLORIDE 107 mmol/L (98-107); CREATININE 1.4 mg/dL (0.6-1.3); GLUCOSE 170 mg/dL (74-106); POTASSIUM 4.2 mmol/L (3.5-5.1); SODIUM SERUM 141 mmol/L (136-145); UREA NITROGEN, BLOOD 32 mg/dL (7-18)
[2018-10-15 08:00] VITALS: BP 140/82
[2018-10-15] MEDS: ISOSORBIDE MONONITRATE (30MG) 30 MG TAB.SR.24H PO SCH (08:29)
[2018-10-15] MEDS: DILTIAZEM HCL CD 240 MG PO SCH (08:29)
[2018-10-15] MEDS: PANTOPRAZOLE 40 MG TABLET.DR PO SCH (08:29)
[2018-10-15] MEDS: LamoTRIgine 25 MG TABLET PO SCH ×2 (08:29→16:09)
[2018-10-15] MEDS: CHOLECALCIFEROL 1,000 UNIT TABLET (VIT D3) PO SCH (08:29)
[2018-10-15] MEDS: GABAPENTIN 300 MG CAPSULE PO SCH ×3 (08:29→16:10)
[2018-10-15] MEDS: DIVALPROEX SODIUM 250 MG TABLET.DR PO SCH ×2 (08:30→16:09)
[2018-10-15] MEDS: FLUTICASONE PROPIONATE 16 GM BOTTLE NS SCH ×2 (08:31→16:11)
[2018-10-15] MEDS: LORATADINE 10 MG TABLET PO SCH (08:31)
[2018-10-15] MEDS: predniSONE 20 MG TABLET PO SCH (08:34)
[2018-10-15] MEDS: APIXABAN 5 MG TABLET PO SCH ×2 (08:35→16:10)
[2018-10-15 12:00] VITALS: BP 131/64
[2018-10-15] MEDS: DIGOXIN 0.25 MG TABLET PO SCH (12:38)
[2018-10-15 16:00] VITALS: BP 129/71
[2018-10-15 20:00] VITALS: BP 118/76
[2018-10-15] MEDS: CEFTRIAXONE 1 G in IV D5W 50 ML IV SCH (20:30)
[2018-10-15] MEDS: ATORVASTATIN 10 MG TABLET PO SCH (21:14)
[2018-10-15] MEDS: QUETIAPINE FUMARATE 100 MG TABLET PO SCH (21:15)
[2018-10-15] MEDS: TRAZODONE 50 MG TABLET PO SCH (21:15)
[2018-10-15] MEDS: TAMSULOSIN 0.4 MG CAP.SR.24H PO SCH (21:15)
[2018-10-16] VITALS: BP 119/71
[2018-10-16] MEDS: NITROGLYCERIN PACKET 1 GM PACKET TOP SCH ×5 (00:43→23:26)
[2018-10-16 04:00] VITALS: BP 141/73
[2018-10-16 06:44] LABS: BASOPHILS % (AUTO) 0.2 % (0.0-2.0); EOSINOPHILS % (AUTO) 0.6 % (0.0-6.0); HEMATOCRIT 39 % (39-51); LYMPHOCYTES # (AUTO) 1.8 /CMM (0.8-4.8); LYMPHOCYTES % (AUTO) 14.3 % (20.0-44.0); MEAN CORPUSCULAR HGB CONC 33 g/dl (31.0-36.0); MEAN CORPUSCULAR VOLUME 98 fL (80-96); MONOCYTES % (AUTO) 15.8 % (2.0-12.0); NEUTROPHILS # (AUTO) 8.7 /CMM (1.8-8.9); NEUTROPHILS % (AUTO) 69.1 % (43.0-81.0); PLATELET COUNT (AUTO) 291 /CMM (150-450); WHITE BLOOD COUNT (AUTO) 12.7 K/uL (4.3-11.0)
[2018-10-16 07:02] LABS: CALCIUM, SERUM 7.9 mg/dL (8.5-10.1); CARBON DIOXIDE 27 mmol/L (21-32); CHLORIDE 107 mmol/L (98-107); CREATININE 1.1 mg/dL (0.6-1.3); GLUCOSE 63 mg/dL (74-106); POTASSIUM 4.8 mmol/L (3.5-5.1); SODIUM SERUM 142 mmol/L (136-145); UREA NITROGEN, BLOOD 33 mg/dL (7-18)
[2018-10-16 08:00] VITALS: BP_SYST 144; BP_SYST 149; BP_DIAS 81
[2018-10-16] MEDS: DIVALPROEX SODIUM 250 MG TABLET.DR PO SCH ×2 (08:42→17:16)
[2018-10-16] MEDS: DILTIAZEM HCL CD 240 MG PO SCH (08:43)
[2018-10-16] MEDS: LamoTRIgine 25 MG TABLET PO SCH ×2 (08:43→17:16)
[2018-10-16] MEDS: GABAPENTIN 300 MG CAPSULE PO SCH ×3 (08:43→17:16)
[2018-10-16] MEDS: CHOLECALCIFEROL 1,000 UNIT TABLET (VIT D3) PO SCH (08:43)
[2018-10-16] MEDS: predniSONE 20 MG TABLET PO SCH (08:43)
[2018-10-16] MEDS: LORATADINE 10 MG TABLET PO SCH (08:43)
[2018-10-16] MEDS: FLUTICASONE PROPIONATE 16 GM BOTTLE NS SCH ×2 (08:44→17:17)
[2018-10-16] MEDS: ISOSORBIDE MONONITRATE (30MG) 30 MG TAB.SR.24H PO SCH (08:44)
[2018-10-16] MEDS: APIXABAN 5 MG TABLET PO SCH ×2 (08:45→17:18)
[2018-10-16] MEDS: PANTOPRAZOLE 40 MG TABLET.DR PO SCH (08:46)
[2018-10-16] MEDS: HYDROCODONE/APAP 5/325MG 1 EACH TABLET PO PRN ×2 (08:52→17:25)
[2018-10-16 08:54] LABS: LYMPHOCYTES % (MANUAL) 15 % (16-48); MONOCYTES % (MANUAL) 12 % (0-11.0); NEUTROPHILS % (MANUAL) 73 (42-76)
[2018-10-16 12:00] VITALS: BP 120/67
[2018-10-16] MEDS: DIGOXIN 0.25 MG TABLET PO SCH (12:33)
[2018-10-16 16:00] VITALS: BP 140/65
[2018-10-16 20:00] VITALS: BP 111/73
[2018-10-16] MEDS: QUETIAPINE FUMARATE 100 MG TABLET PO SCH (21:37)
[2018-10-16] MEDS: TAMSULOSIN 0.4 MG CAP.SR.24H PO SCH (21:37)
[2018-10-16] MEDS: CEFTRIAXONE 1 G in IV D5W 50 ML IV SCH (21:37)
[2018-10-16] MEDS: ATORVASTATIN 10 MG TABLET PO SCH (21:37)
[2018-10-16] MEDS: TRAZODONE 50 MG TABLET PO SCH (21:37)
[2018-10-17] MEDS: HYDROCODONE/APAP 5/325MG 1 EACH TABLET PO PRN ×3 (00:46→15:19)
[2018-10-17 04:00] VITALS: BP 115/68
[2018-10-17] MEDS: NITROGLYCERIN PACKET 1 GM PACKET TOP SCH ×2 (05:18→12:11)
[2018-10-17 08:00] VITALS: BP 151/60
[2018-10-17] MEDS: PANTOPRAZOLE 40 MG TABLET.DR PO SCH (08:57)
[2018-10-17] MEDS: DIVALPROEX SODIUM 250 MG TABLET.DR PO SCH (08:59)
[2018-10-17] MEDS: CHOLECALCIFEROL 1,000 UNIT TABLET (VIT D3) PO SCH (08:59)
[2018-10-17] MEDS: GABAPENTIN 300 MG CAPSULE PO SCH ×2 (08:59→12:11)
[2018-10-17] MEDS: DILTIAZEM HCL CD 240 MG PO SCH (08:59)
[2018-10-17] MEDS: predniSONE 20 MG TABLET PO SCH (09:00)
[2018-10-17] MEDS: LamoTRIgine 25 MG TABLET PO SCH (09:00)
[2018-10-17] MEDS: ISOSORBIDE MONONITRATE (30MG) 30 MG TAB.SR.24H PO SCH (09:00)
[2018-10-17] MEDS: LORATADINE 10 MG TABLET PO SCH (09:09)
[2018-10-17] MEDS: FLUTICASONE PROPIONATE 16 GM BOTTLE NS SCH (09:10)
[2018-10-17] MEDS: APIXABAN 5 MG TABLET PO SCH (09:10)
[2018-10-17] MEDS: DIGOXIN 0.25 MG TABLET PO SCH (12:11)
[2018-10-17 16:00] VITALS: BP 126/78
== END 2018-10-17 16:30 | DRG 190 ==
LOC: ER 13:35 → TELE1 17:15 → MEDSG1 10-16 16:13
PROVIDERS: ADMIT Legal Medicine; ATTEND Legal Medicine
PROC: 05H533Z Insertion of Infusion Device into Right Subclavian Vein, Percutaneous Approach (ICD-10-PCS; principal; 2018-10-12)
PROC: B546ZZA Ultrasonography of Right Subclavian Vein, Guidance (ICD-10-PCS; 2018-10-12)
DX: J44.1 Chronic obstructive pulmonary disease with (acute) exacerbation (principal); N17.0 Acute kidney failure with tubular necrosis; I48.92 Unspecified atrial flutter; J98.11 Atelectasis; E78.5 Hyperlipidemia, unspecified; G89.29 Other chronic pain; I10 Essential (primary) hypertension; I25.10 Atherosclerotic heart disease of native coronary artery without angina pectoris; N40.0 Benign prostatic hyperplasia without lower urinary tract symptoms; I48.91 Unspecified atrial fibrillation; I73.9 Peripheral vascular disease, unspecified; G20 Parkinson's disease; J44.0 Chronic obstructive pulmonary disease with (acute) lower respiratory infection; Z98.62 Peripheral vascular angioplasty status; Z88.6 Allergy status to analgesic agent; Z88.0 Allergy status to penicillin; Z88.8 Allergy status to other drugs, medicaments and biological substances; Z91.018 Allergy to other foods; Z79.899 Other long term (current) drug therapy; M19.90 Unspecified osteoarthritis, unspecified site; F17.200 Nicotine dependence, unspecified, uncomplicated; F41.9 Anxiety disorder, unspecified; F32.9 Major depressive disorder, single episode, unspecified; Z79.51 Long term (current) use of inhaled steroids; J20.9 Acute bronchitis, unspecified; Z79.02 Long term (current) use of antithrombotics/antiplatelets
CPT/HCPCS: 36415; 36569; 36600; 71045-TC; 80048-TC; 80076-TC; 81000-TC; 83605-TC; 83735-TC; 83880; 84484-TC; 85025-TC; 85378-TC; 85730-TC; 87040-TC; 87081-TC; 87086-TC; 97112-TC; 97530-TC; A4349; G0378; J0456; J0696; J1940; J3490; J7030; J7050; J7060; Q9967

== ENCOUNTER 2018-11-05 18:25 | Inpatient (IN) | payer MEDICARE, OTHER ==
[~2018-11-05] VITALS: Ht 182.9 cm; Wt 77.6 kg
[~2018-11-05 18:25] MED LIST changes: -AMIO200T4 PO; -AMLO5TAB9 PO; +ATOR20TA PO; +BUDE10.2 IH; -CYAN-51 PO; -ISOS20TA8 PO; +ISOS60TA4 PO; +LORA10TA68 PO; +METH4TAB PO; -MORP15TA PO; -MULT-213 PO; +QUET100T PO; -TEMA15CA PO; -TICA90TA PO
--- NOTE | 2018-11-05 18:35 | NUR ---
PT SANDRA FROM [facility] FOR SOB; PT AAOX2-3, -SOB, NAD NOTED, PENDING MD TOLEDO
[2018-11-05] MEDS ORDERED: ALBUTEROL FS 2.5 MG/3 ML VIAL.NEB NEB ONE (19:00)
[2018-11-05] MEDS ORDERED: IPRATROPIUM NEB FS 0.5 MG/2.5 ML AMPUL.NEB NEB ONE (19:00)
[2018-11-05 19:12] LABS: BASOPHILS # (AUTO) 0.1 /CMM (0.0-0.2); BASOPHILS % (AUTO) 0.5 % (0.0-2.0); EOSINOPHILS % (AUTO) 1.8 % (0.0-6.0); HEMATOCRIT 38 % (39-51); HEMOGLOBIN 12.8 g/dL (13.5-17.5); LYMPHOCYTES # (AUTO) 1.2 /CMM (0.8-4.8); LYMPHOCYTES % (AUTO) 10.1 % (20.0-44.0); MEAN CORPUSCULAR HGB CONC 33 g/dl (31.0-36.0); MEAN CORPUSCULAR VOLUME 99 fL (80-96); MONOCYTES # (AUTO) 2.7 /CMM (0.1-1.30); MONOCYTES % (AUTO) 22.9 % (2.0-12.0); NEUTROPHILS # (AUTO) 7.7 /CMM (1.8-8.9); NEUTROPHILS % (AUTO) 64.7 % (43.0-81.0); PLATELET COUNT (AUTO) 142 /CMM (150-450); RED BLOOD CELL COUNT(AUTO) 3.88 MIL/uL (4.5-6.0)
[2018-11-05] MEDS ORDERED: AMLO5TAB9 PO (19:13)
--- NOTE | 2018-11-05 19:14 | NUR ---
IN BED. REPORTING FEELING MUCH NETTER WITH APPLICATION OF 02 (2LPM NC). ON CONT MONITORING. OCCASIONAL BABYSITTER AT THE BED SIDE FOR ECG.
[2018-11-05 19:18] LABS: CALCIUM, SERUM 8.4 mg/dL (8.5-10.1); CARBON DIOXIDE 28 mmol/L (21-32); CHLORIDE 108 mmol/L (98-107); CREATININE 1.7 mg/dL (0.6-1.3); GLUCOSE 94 mg/dL (74-106); POTASSIUM 4.7 mmol/L (3.5-5.1); SODIUM SERUM 143 mmol/L (136-145); UREA NITROGEN, BLOOD 27 mg/dL (7-18)
[2018-11-05] MEDS ORDERED: IPRATROPIUM NEB FS 0.5 MG/2.5 ML AMPUL.NEB ONE (19:20)
[2018-11-05] MEDS ORDERED: ALBUTEROL FS 2.5 MG/3 ML VIAL.NEB ONE (19:20)
[2018-11-05 19:31] LABS: B-TYPE NATRIURETIC PEPTIDE 1488 PG/ML (0-125)
--- NOTE | 2018-11-05 19:33 | NUR ---
CALLED NURSING SUP. FOR TELE BED
--- NOTE | 2018-11-05 19:51 | NUR ---
TELE 104
[2018-11-05 20:05] LABS: BAND % (MANUAL) 1 % (0.0-5.0); LYMPHOCYTES % (MANUAL) 16 % (16-48); MONOCYTES % (MANUAL) 13 % (0-11.0); NEUTROPHILS % (MANUAL) 66 (42-76)
[2018-11-05 20:06] LABS: EOSINOPHILS % (MANUAL) 4 % (0-4)
--- NOTE | 2018-11-05 20:16 | NUR ---
REPORT GIVEN TO NURSE AT [facility]
[2018-11-05 20:37] VITALS: BP 167/71
--- NOTE | 2018-11-05 20:37 | NUR ---
RN NOTE RECEIVED PATIENT FROM ER, ALERT/ORIENTED X 4, DX COPD EXACERBATION, ON 2L OF OXYGEN VIA NASAL CANULA, ALL SAFETY MEASURES TAKEN, BED ALARM ON, LEFT AC 18 GAUGE NOTED, NO S/S OF INFECTION/INFILTRATION NOTED, NO PAIN OR DISCOMFORT NOTED, NO RESPIRATORY DISTRESS NOTED, WILL CONTINUE TO MONITOR
--- NOTE | 2018-11-05 20:40 | NUR ---
RN NOTE PATIENT IS ALERT/ORIENTED X 4, PATIENT STATED THAT HE HAS NEVER BEEN ALLERGIC TO PENICILLIN, ALLERGY WAS UPDATED
--- NOTE | 2018-11-05 20:42 | NUR ---
PT WAS TRANSFERRED TO 104 IN STABLE CONDITION UNDER ACLS PROTOCOL.
[2018-11-05] MEDS ORDERED: ALBUTEROL FS 2.5 MG/3 ML VIAL.NEB NEB PRN (21:30)
[2018-11-05] MEDS ORDERED: HYDROCODONE/APAP 5/325MG 1 EACH TABLET PO PRN (21:30)
[2018-11-05] MEDS ORDERED: ONDANSETRON HCL/PF 4 MG/2 ML VIAL IV PRN (21:30)
[2018-11-05] MEDS ORDERED: IPRATROPIUM NEB FS 0.5 MG/2.5 ML AMPUL.NEB NEB PRN (21:30)
[2018-11-05] MEDS ORDERED: CEFTRIAXONE 1 G VIAL ONE (23:33)
[2018-11-06] MEDS ORDERED: methylPREDNISolone SOD SUCC 40 MG/ML VIAL IV SCH
[2018-11-06] MEDS: CEFTRIAXONE 1 G in IV D5W 50 ML IV SCH ×2 (00:33→23:10)
[2018-11-06] MEDS: ALBUTEROL FS 2.5 MG/3 ML VIAL.NEB NEB SCH ×4 (01:48→20:01)
[2018-11-06] MEDS: IPRATROPIUM NEB FS 0.5 MG/2.5 ML AMPUL.NEB NEB SCH ×4 (01:48→20:01)
[2018-11-06 04:00] VITALS: BP 159/71
[2018-11-06 06:12] LABS: BASOPHILS % (AUTO) 0.2 % (0.0-2.0); EOSINOPHILS % (AUTO) 0.3 % (0.0-6.0); HEMATOCRIT 39 % (39-51); HEMOGLOBIN 13.4 g/dL (13.5-17.5); LYMPHOCYTES # (AUTO) 0.5 /CMM (0.8-4.8); LYMPHOCYTES % (AUTO) 6.8 % (20.0-44.0); MEAN CORPUSCULAR HGB CONC 34 g/dl (31.0-36.0); MEAN CORPUSCULAR VOLUME 98 fL (80-96); MONOCYTES # (AUTO) 0.2 /CMM (0.1-1.30); MONOCYTES % (AUTO) 2.5 % (2.0-12.0); NEUTROPHILS # (AUTO) 7.1 /CMM (1.8-8.9); NEUTROPHILS % (AUTO) 90.2 % (43.0-81.0); PLATELET COUNT (AUTO) 143 /CMM (150-450); RED BLOOD CELL COUNT(AUTO) 4.03 MIL/uL (4.5-6.0); WHITE BLOOD COUNT (AUTO) 7.9 K/uL (4.3-11.0)
[2018-11-06 06:26] LABS: CALCIUM, SERUM 8.2 mg/dL (8.5-10.1); CARBON DIOXIDE 26 mmol/L (21-32); CHLORIDE 108 mmol/L (98-107); CREATININE 1.3 mg/dL (0.6-1.3); GLUCOSE 111 mg/dL (74-106); POTASSIUM 4.4 mmol/L (3.5-5.1); SODIUM SERUM 143 mmol/L (136-145); UREA NITROGEN, BLOOD 24 mg/dL (7-18)
[2018-11-06 08:00] VITALS: BP 159/73
--- NOTE | 2018-11-06 08:00 | NUR ---
TELE1/RN AM SHIFT INITIAL NOTES RECEIVED PT AWAKE IN BED, PT A/O X 4, DENIES SOB BUT NOTED WITH PRODUCTIVE. ON 2L O2 VIA N/C SATURATING @ 95%, RESPIRATIONS A BIT LABORED, LUNG SOUNDS RHONCHI TO DIMINISHED. ON TELE WITH SINUS RHYTHM, HR 64. IV SITE FLUSHED, PATENT, SL. PT IS COMFORTABLE AT THIS TIME, SCHEDULED AM MEDS TO BE GIVEN. CL WITHIN REACHED AND SAFETY MAINTAINED. ON GOING MONITORING.
[2018-11-06] MEDS ORDERED: PANTOPRAZOLE 40 MG VIAL IV SCH ×2 (08:30→09:00)
[2018-11-06] MEDS: PANTOPRAZOLE 40 MG TABLET.DR PO SCH (09:09)
[2018-11-06] MEDS: methylPREDNISolone SOD SUCC 40 MG/ML VIAL IV SCH ×2 (09:10→16:44)
--- NOTE | 2018-11-06 10:15 | NUR ---
MS1/RN ROUNDS - DR. YANG UPDATED PT'S CONDITION, PT SEEN & EXAMINED BY DR. YANG, NO NEW ORDER RECEIVED AT THIS TIME.
[2018-11-06] MEDS: ENOXAPARIN SODIUM 30 MG/0.3 ML DISP.SYRIN SQ SCH (11:00)
[2018-11-06] MEDS: GUAIFENESIN LA 600 MG TABLET.SA PO SCH ×2 (11:00→21:06)
--- NOTE | 2018-11-06 11:20 | NUR ---
MS1/RN SWALLOW EVAL PT NOTED HAVING A HARD TIME SWALLOWING THIN LIQUIDS AND WOULD COUGH EVERY TIME HE TAKES A DRINK. PLACE A CALL TO DR. BURNHAM, RECOMMENDING FOR SWALLOW EVALUATION TO PREVENT ASPIRATION.
--- NOTE | 2018-11-06 11:40 | NUR ---
ERROR: PT ON TELE NOTED WITH A-FLUTTER, HR 64.
[2018-11-06] MEDS ORDERED: ISOSORBIDE MONONITRATE 60 MG TAB.SR.24H PO SCH (13:00)
[2018-11-06] MEDS: GABAPENTIN 300 MG CAPSULE PO SCH ×2 (13:00→16:43)
[2018-11-06] MEDS ORDERED: HYDROCODONE/APAP 5/325MG 1 EACH TABLET PO PRN (13:00)
[2018-11-06] MEDS ORDERED: ALBUTEROL FS 2.5 MG/3 ML VIAL.NEB NEB SCH (13:30)
[2018-11-06] MEDS ORDERED: ISOSORBIDE MONONITRATE (30MG) 30 MG TAB.SR.24H PO ONE ×2 (14:00→17:00)
[2018-11-06 16:00] VITALS: BP 181/106
--- NOTE | 2018-11-06 16:00 | NUR ---
MS1/RN AFTERNOON ROUNDS PM CARE PROVIDED, NO CHANGE OF CONDITION. MONITORING CONTINUED.
[2018-11-06] MEDS ORDERED: NEOMY SULF/BACITRAC ZN/POLY 15 GM TUBE TP PRN (16:30)
[2018-11-06] MEDS: LamoTRIgine 25 MG TABLET PO SCH (16:43)
[2018-11-06] MEDS: DIVALPROEX SODIUM 250 MG TABLET.DR PO SCH (16:43)
[2018-11-06] MEDS: CHOLECALCIFEROL 1,000 UNIT TABLET (VIT D3) PO SCH (16:43)
[2018-11-06] MEDS: Z GUARD REMEDY 2 OZ OINT TP SCH ×2 (16:44→21:09)
[2018-11-06] MEDS: CLOTRIMAZOLE 1% 15 GM TUBE TP SCH (17:00)
--- NOTE | 2018-11-06 19:00 | NUR ---
MS1/RN AM SHIFT END NOTES NO ACUTE CHANGE OF CONDITION NOTED DURING THE SHIFT, PT ENDORSED TO PM NURSE TO CONTINUE CARE. CL WITHIN REACHED AND SAFETY MAINTAINED.
--- NOTE | 2018-11-06 19:20 | NUR ---
MS RN OPENING NOTES Received patient in bed, HOB elevated, watching TV. Alert, oriented x 3. Breathing even and unlabored. Not in any distress. No complaints at this time. Safety measures in place; call light within reach, bed in low, locked position. Will continue to monitor accordingly
[2018-11-06 20:00] VITALS: BP 117/87
[2018-11-06] MEDS: NEOMY SULF/BACITRAC ZN/POLY 15 GM TUBE TP SCH (21:09)
[2018-11-06] MEDS ORDERED: TRAZODONE 50 MG TABLET PO SCH (22:00)
[2018-11-06] MEDS ORDERED: QUETIAPINE FUMARATE 100 MG TABLET PO SCH (22:00)
[2018-11-06] MEDS ORDERED: TAMSULOSIN 0.4 MG CAP.SR.24H PO SCH (22:00)
[2018-11-07] MEDS: methylPREDNISolone SOD SUCC 40 MG/ML VIAL IV SCH ×3 (00:10→16:56)
[2018-11-07] MEDS: IPRATROPIUM NEB FS 0.5 MG/2.5 ML AMPUL.NEB NEB SCH ×3 (01:09→14:08)
[2018-11-07] MEDS: ALBUTEROL FS 2.5 MG/3 ML VIAL.NEB NEB SCH ×3 (01:09→14:08)
--- NOTE | 2018-11-07 01:35 | NUR ---
RN NOTES Patient c/o lower back pain, 10/22. Requested for norco, Laura 5-325 given as ordered. Will continue to monitor
[2018-11-07 04:00] VITALS: BP 133/79
--- NOTE | 2018-11-07 06:42 | NUR ---
WOUND CONSULT WOUND CARE RECEIVED CONSULT FOR SACRUM REDNESS. WOUND CARE WILL DEFER CONSULT AND TREATMENT PLANS TO PLASTIC SURGICAL TEAM WHO ARE CURRENTLY FOLLOWING THIS PATIENT. PATIENT WITH GIOVANY AT 15, ALL PRESSURE ULCER PREVENTION MEASURES ARE NOTED TO BE IN PLACE. WILL SEE PRN.
--- NOTE | 2018-11-07 06:45 | NUR ---
MS RN CLOSING NOTES Patient in bed, sleeping, easily arousable. Breathing even and unlabored. Not in any distress. On 2L O2 via nasal cannula. No acute changes overnight. All needs attended. Will endorse LAURO to oncoming RN
[2018-11-07 08:00] VITALS: BP 129/79
--- NOTE | 2018-11-07 08:05 | NUR ---
MS RN OPENING NOTES Received patient in bed, HOB elevated, a/o x 3. Breathing even and unlabored. no pain, sob or acute distress noted. No complaints at this time. LAC #18 sl intact and patent. Safety measures in place; call light within reach, bed in low, locked position. Will continue to monitor.
[2018-11-07 08:50] VITALS: BP 129/79
[2018-11-07] MEDS: GABAPENTIN 300 MG CAPSULE PO SCH ×3 (08:50→16:56)
[2018-11-07] MEDS: CHOLECALCIFEROL 1,000 UNIT TABLET (VIT D3) PO SCH (08:50)
[2018-11-07] MEDS: PANTOPRAZOLE 40 MG TABLET.DR PO SCH (08:50)
[2018-11-07] MEDS: GUAIFENESIN LA 600 MG TABLET.SA PO SCH (08:50)
[2018-11-07] MEDS: DIVALPROEX SODIUM 250 MG TABLET.DR PO SCH ×2 (08:51→16:56)
[2018-11-07] MEDS: ENOXAPARIN SODIUM 30 MG/0.3 ML DISP.SYRIN SQ SCH (08:52)
[2018-11-07] MEDS ORDERED: LORATADINE 10 MG TABLET PO SCH (09:00)
[2018-11-07] MEDS ORDERED: AMLODIPINE BESYLATE 5 MG TABLET PO SCH (09:00)
[2018-11-07] MEDS ORDERED: ISOSORBIDE MONONITRATE (30MG) 30 MG TAB.SR.24H PO SCH (09:00)
[2018-11-07] MEDS: NEOMY SULF/BACITRAC ZN/POLY 15 GM TUBE TP SCH (09:03)
[2018-11-07] MEDS: CLOTRIMAZOLE 1% 15 GM TUBE TP SCH ×2 (09:03→16:56)
[2018-11-07] MEDS: Z GUARD REMEDY 2 OZ OINT TP SCH (09:03)
[2018-11-07] MEDS: LamoTRIgine 25 MG TABLET PO SCH ×2 (09:03→16:56)
[2018-11-07] MEDS ORDERED: AZIT1PAC PO (10:01)
[2018-11-07] MEDS ORDERED: METH4TAB17 PO (10:01)
--- NOTE | 2018-11-07 10:26 | NUR ---
patient room air sat at rest 84%,placed on 2 liters sat improved to 94% at rest.per md arrange home o2.
[2018-11-07] MEDS ORDERED: LIDOCAINE 1%-EPI 1:100,000 20 ML VIAL TP ONE (10:30)
[2018-11-07 11:08] LABS: BASOPHILS % (AUTO) 0.1 % (0.0-2.0); HEMATOCRIT 38 % (39-51); HEMOGLOBIN 12.7 g/dL (13.5-17.5); LYMPHOCYTES # (AUTO) 0.5 /CMM (0.8-4.8); LYMPHOCYTES % (AUTO) 3.8 % (20.0-44.0); MEAN CORPUSCULAR HGB CONC 34 g/dl (31.0-36.0); MEAN CORPUSCULAR VOLUME 98 fL (80-96); MONOCYTES # (AUTO) 1.6 /CMM (0.1-1.30); MONOCYTES % (AUTO) 11.4 % (2.0-12.0); NEUTROPHILS # (AUTO) 11.6 /CMM (1.8-8.9); NEUTROPHILS % (AUTO) 84.7 % (43.0-81.0); PLATELET COUNT (AUTO) 160 /CMM (150-450); RED BLOOD CELL COUNT(AUTO) 3.88 MIL/uL (4.5-6.0); WHITE BLOOD COUNT (AUTO) 13.7 K/uL (4.3-11.0)
[2018-11-07 11:17] LABS: CALCIUM, SERUM 8.5 mg/dL (8.5-10.1); CARBON DIOXIDE 27 mmol/L (21-32); CHLORIDE 108 mmol/L (98-107); CREATININE 1.7 mg/dL (0.6-1.3); GLUCOSE 178 mg/dL (74-106); MAGNESIUM 2.1 mg/dL (1.8-2.4); POTASSIUM 4.5 mmol/L (3.5-5.1); SODIUM SERUM 143 mmol/L (136-145); UREA NITROGEN, BLOOD 39 mg/dL (7-18)
--- NOTE | 2018-11-07 17:55 | NUR ---
MS CABIN MAN NOTE PATIENT DISCHARGED TO SNF PER MD VIA EMT GURNEY TRANSPORT. PATIENT A/O X 4, NO SOB OR ACUTE DISTRESS NOTED. BELONGINGS LIST COMPLETED. IV SL REMOVED, NO MONITOR ON PATIENT. REPORT GIVEN TO ALYX LAGUNA AT SNF. ALL DISCHARGE PAPERWORK W/ MEDICATION LIST SENT WITH PATIENT AND EMT'S. DISCHARGE COMPLETED W/O INCIDENT.
[2018-11-07] MEDS ORDERED: ATORVASTATIN 10 MG TABLET PO SCH (22:00)
== END 2018-11-07 17:50 | DRG 190 ==
LOC: ER 18:30 → TELE1 19:56 → MEDSG1 11-06 10:12
PROVIDERS: ADMIT Legal Medicine; ATTEND Legal Medicine
DX: J44.1 Chronic obstructive pulmonary disease with (acute) exacerbation (principal); N17.0 Acute kidney failure with tubular necrosis; J20.9 Acute bronchitis, unspecified; J44.0 Chronic obstructive pulmonary disease with (acute) lower respiratory infection; I10 Essential (primary) hypertension; I48.91 Unspecified atrial fibrillation; N40.0 Benign prostatic hyperplasia without lower urinary tract symptoms; Z99.81 Dependence on supplemental oxygen; Z79.899 Other long term (current) drug therapy; Z79.51 Long term (current) use of inhaled steroids; Z51.5 Encounter for palliative care; Z91.19 Patient's noncompliance with other medical treatment and regimen; G20 Parkinson's disease; I25.10 Atherosclerotic heart disease of native coronary artery without angina pectoris; E78.5 Hyperlipidemia, unspecified; Z86.59 Personal history of other mental and behavioral disorders; Z88.6 Allergy status to analgesic agent; Z88.0 Allergy status to penicillin; Z88.8 Allergy status to other drugs, medicaments and biological substances; Z91.018 Allergy to other foods; Z98.62 Peripheral vascular angioplasty status; E86.0 Dehydration; I73.9 Peripheral vascular disease, unspecified; G89.29 Other chronic pain; F41.9 Anxiety disorder, unspecified; F32.9 Major depressive disorder, single episode, unspecified; F17.200 Nicotine dependence, unspecified, uncomplicated; S01.21XA Laceration without foreign body of nose, initial encounter; X58.XXXA Exposure to other specified factors, initial encounter; Y92.9 Unspecified place or not applicable; L30.4 Erythema intertrigo; L98.9 Disorder of the skin and subcutaneous tissue, unspecified; D64.9 Anemia, unspecified
CPT/HCPCS: 36415; 71045-TC; 80048-TC; 83735-TC; 83880; 84484-TC; 85025-TC; 87081-TC; 92521; 92526; 94799-TC; G0378; J0696; J1650; J2920; J3490; J7030; J7060

== ENCOUNTER 2018-11-30 13:29 | Emergency (ER) | payer MEDICARE, OTHER ==
[~2018-11-30] VITALS: Ht 182.9 cm; Wt 77.1 kg
[~2018-11-30 13:29] MED LIST changes: +AMLO5TAB9 PO; -ATOR10TA PO; -FLUT16SP BNOSTRILS; -METH4TAB PO
[2018-11-30] MEDS ORDERED: ONDANSETRON HCL/PF 4 MG/2 ML VIAL ONE (13:43)
[2018-11-30] MEDS ORDERED: DOCU-141 PO (13:59)
[2018-11-30] MEDS ORDERED: FLUT16SP NS (13:59)
[2018-11-30] MEDS ORDERED: IV NS 0.9% 500 ML BAG IV ONE (14:00)
[2018-11-30] MEDS ORDERED: ONDANSETRON HCL/PF 4 MG/2 ML VIAL IVP ONE (14:00)
[2018-11-30 14:01] LABS: BASOPHILS # (AUTO) 0.1 /CMM (0.0-0.2); LYMPHOCYTES # (AUTO) 1.4 /CMM (0.8-4.8); LYMPHOCYTES % (AUTO) 12.3 % (20.0-44.0)
[2018-11-30] MEDS ORDERED: DILT240C2 PO (14:02)
[2018-11-30] MEDS ORDERED: DIGO250T PO (14:02)
[2018-11-30] MEDS ORDERED: PANT40TA4 PO (14:02)
[2018-11-30] MEDS ORDERED: APIX5TAB PO (14:02)
[2018-11-30 14:04] LABS: BASOPHILS % (AUTO) 0.9 % (0.0-2.0); EOSINOPHILS % (AUTO) 0.9 % (0.0-6.0); HEMATOCRIT 38 % (39-51); HEMOGLOBIN 12.9 g/dL (13.5-17.5); MEAN CORPUSCULAR HGB CONC 34 g/dl (31.0-36.0); MEAN CORPUSCULAR VOLUME 99 fL (80-96); MONOCYTES # (AUTO) 1.9 /CMM (0.1-1.30); MONOCYTES % (AUTO) 17.1 % (2.0-12.0); NEUTROPHILS # (AUTO) 7.8 /CMM (1.8-8.9); NEUTROPHILS % (AUTO) 68.8 % (43.0-81.0); PLATELET COUNT (AUTO) 262 /CMM (150-450); RED BLOOD CELL COUNT(AUTO) 3.88 MIL/uL (4.5-6.0); WHITE BLOOD COUNT (AUTO) 11.4 K/uL (4.3-11.0)
[2018-11-30 14:09] LABS: CALCIUM, SERUM 8.9 mg/dL (8.5-10.1); CARBON DIOXIDE 29 mmol/L (21-32); CHLORIDE 108 mmol/L (98-107); CREATININE 1.5 mg/dL (0.6-1.3); GLUCOSE 127 mg/dL (74-106); POTASSIUM 4.5 mmol/L (3.5-5.1); SODIUM SERUM 142 mmol/L (136-145); UREA NITROGEN, BLOOD 24 mg/dL (7-18)
[2018-11-30 14:14] LABS: ALANINE AMINOTRANSFERASE 23 U/L (12-78); ALBUMIN 3.1 g/dL (3.4-5.0); ALKALINE PHOSPHATASE 62 U/L (46-116); ASPARTATE AMINOTRANSFERASE 18 U/L (15-37); BILIRUBIN,DIRECT 0.1 mg/dL (0.0-0.2); BILIRUBIN,TOTAL 0.4 mg/dL (0.2-1.0); LIPASE 164 U/L (73-393)
[2018-11-30 14:59] LABS: EOSINOPHILS % (MANUAL) 3 % (0-4); LYMPHOCYTES % (MANUAL) 10 % (16-48); MONOCYTES % (MANUAL) 22 % (0-11.0); NEUTROPHILS % (MANUAL) 65 (42-76)
[2018-11-30 15:48] LABS: APPEARANCE,URINE Clear (CLEAR); BILIRUBIN,URINE Negative (NEGATIVE); BLOOD, URINE Trace-lysed Ery/uL (NEGATIVE); COLOR,URINE Yellow (YELLOW); KETONES,URINE Negative (NEGATIVE); LEUKOCYTE ESTERASE ,URINE Trace (NEGATIVE); NITRITE, URINE Negative (NEGATIVE); PROTEIN,URINE 100 mg/dl (NEGATIVE); UGLUCOSE Negative (NEGATIVE)
--- NOTE | 2018-11-30 16:00 | NUR ---
Report given to Ene at [facility] .
--- NOTE | 2018-11-30 16:09 | NUR ---
[facility] ETA 1830 TRIP [id number]
[2018-11-30 16:50] LABS: BACTERIA,URINE Few /HPF (None Seen); SQUAMOUS EPITHELIAL CELL,UR Few /HPF (None Seen)
--- NOTE | 2018-11-30 18:30 | NUR ---
PATIENT ASLEEP, BREATHING EVEN AND UNLABORED, NO SOB NOTED. VSS. NAD.
--- NOTE | 2018-11-30 18:49 | NUR ---
UPDATED ETA 15 MINUTES
--- NOTE | 2018-11-30 19:15 | NUR ---
ENDORSED TO SANTIAGO RN FOR LAURO.
--- NOTE | 2018-11-30 19:40 | NUR ---
Patient discharged to home in stable condition. Written and verbal after care instructions given. Patient verbalizes understanding of instruction.
--- NOTE | 2018-11-30 19:45 | NUR ---
IV removed. Catheter intact and site benign. Pressure and 4x4 applied to site. No bleeding noted.
[2018-11-30 19:51] VITALS: BP 126/71
== END 2018-11-30 19:51 ==
LOC: ER 13:31
DX: B86 Scabies (principal); K52.9 Noninfective gastroenteritis and colitis, unspecified; I10 Essential (primary) hypertension; I48.91 Unspecified atrial fibrillation; J44.9 Chronic obstructive pulmonary disease, unspecified; N40.0 Benign prostatic hyperplasia without lower urinary tract symptoms; E78.00 Pure hypercholesterolemia, unspecified; F17.200 Nicotine dependence, unspecified, uncomplicated; Z98.890 Other specified postprocedural states; Z88.6 Allergy status to analgesic agent; Z91.018 Allergy to other foods; Z79.899 Other long term (current) drug therapy
CPT/HCPCS: 36415; 74176; 80048; 80076; 81001; 83690; 85025; 96374; 99284; J2405; J7040; 81000-TC

== ENCOUNTER 2019-07-03 19:39 | Emergency (ER) | payer MEDICARE, OTHER ==
[~2019-07-03] VITALS: Ht 182.9 cm; Wt 77.1 kg
[2019-07-03 19:39] VITALS: BP 168/95
[~2019-07-03 19:39] MED LIST changes: -AMLO5TAB9 PO; +APIX5TAB PO; +DIGO250T PO; +DILT-4 PO; +DOCU-141 PO; +FLUT16SP NS; -HYDR-4384 PO; +PANT40TA4 PO
[2019-07-03] MEDS ORDERED: GELATIN SPONGE,ABSORBABLE 1 SPONGE SPONGE TP ONE ×3 (20:00→21:32)
[2019-07-03] MEDS ORDERED: OXYMETAZOLINE HCL NASAL SPRAY 30 ML BOTTLE NS ONE (20:31)
--- NOTE | 2019-07-03 20:55 | NUR ---
CALLED [facility] FOR BLS TRANSPORT. SAID THEY WONT ACCEPT TRANSPORTING PT BECAUSE PT IS AMBULATORY AND MEDICARE WONT COVER
--- NOTE | 2019-07-03 21:28 | NUR ---
CALLED CALL A CAR FOR S TRANSPORT TO [facility]. WAITING CALL BACK FOR ETA. RUN #: [id number]
--- NOTE | 2019-07-03 23:20 | NUR ---
[facility]. ETA:45 MIN
== END 2019-07-03 23:58 | disposition home or self-care (01) ==
LOC: ER 19:42
DX: L76.22 Postprocedural hemorrhage of skin and subcutaneous tissue following other procedure (principal); G20 Parkinson's disease; I48.91 Unspecified atrial fibrillation; J44.9 Chronic obstructive pulmonary disease, unspecified; N40.0 Benign prostatic hyperplasia without lower urinary tract symptoms; F17.200 Nicotine dependence, unspecified, uncomplicated; E78.00 Pure hypercholesterolemia, unspecified; Z98.890 Other specified postprocedural states; Z88.6 Allergy status to analgesic agent; Z91.018 Allergy to other foods; Z91.013 Allergy to seafood; Z79.899 Other long term (current) drug therapy

== ENCOUNTER 2020-03-02 13:09 | Inpatient (IN) | payer MEDICARE, OTHER ==
[~2020-03-02] VITALS: Ht 188 cm; Wt 92.5 kg
[~2020-03-02 13:09] MED LIST changes: -PANT40TA4 PO; +PANT40TA49 PO
--- NOTE | 2020-03-02 13:09 | NUR ---
BIB RA 102 FROM [facility] FOR GENERALIZED WEAKNESS,VOMITED 2X. ALSO C/O ABDOMINAL PAIN. TO ER BED 8, HOOKED TO PIT STEWARD, BP CUFF AND POX, NOTED WITH 86% O2 SAT ROOM AIR, PLACED PATIENT ON 2LPM O2 VIA NC. CHANGED TO HOSP GOWN, WARM BLANKET PROVIDED, PATIENT AAO x 2, BREATHING EVEN AND UNLABORED. DR FLORES AT BEDSIDE FOR EVAL.
[2020-03-02] MEDS ORDERED: CALC500T13 PO (13:18)
[2020-03-02] MEDS ORDERED: HYDR-4384 PO (13:18)
[2020-03-02] MEDS ORDERED: NAPR-1009 PO (13:18)
[2020-03-02] MEDS ORDERED: CARV12.52 PO (13:18)
[2020-03-02] MEDS ORDERED: IV NS 0.9% 500 ML BAG IV ONE (13:30)
[2020-03-02] MEDS ORDERED: ONDANSETRON HCL/PF 4 MG/2 ML VIAL IVP ONE (13:30)
[2020-03-02] MEDS ORDERED: ONDANSETRON HCL/PF 4 MG/2 ML VIAL ONE (13:33)
[2020-03-02 14:12] LABS: BASOPHILS % (AUTO) 0.4 % (0.0-2.0); EOSINOPHILS % (AUTO) 2.2 % (0.0-6.0); HEMATOCRIT 40 % (39-51); HEMOGLOBIN 12.9 g/dL (13.5-17.5); LYMPHOCYTES # (AUTO) 1.5 /CMM (0.8-4.8); LYMPHOCYTES % (AUTO) 13.9 % (20.0-44.0); MEAN CORPUSCULAR HGB CONC 33 g/dl (31.0-36.0); MEAN CORPUSCULAR VOLUME 100 fL (80-96); MONOCYTES # (AUTO) 2.1 /CMM (0.1-1.30); NEUTROPHILS % (AUTO) 64.5 % (43.0-81.0); PLATELET COUNT (AUTO) 227 /CMM (150-450); RED BLOOD CELL COUNT(AUTO) 3.97 MIL/uL (4.5-6.0); WHITE BLOOD COUNT (AUTO) 10.9 K/uL (4.3-11.0)
[2020-03-02 14:24] LABS: CALCIUM, SERUM 8.5 mg/dL (8.5-10.1); CARBON DIOXIDE 26 mmol/L (21-32); CHLORIDE 106 mmol/L (98-107); CREATININE 2.2 mg/dL (0.6-1.3); GLUCOSE 108 mg/dL (74-106); POTASSIUM 5.8 mmol/L (3.5-5.1); SODIUM SERUM 140 mmol/L (136-145); UREA NITROGEN, BLOOD 35 mg/dL (7-18)
[2020-03-02 14:30] LABS: ALANINE AMINOTRANSFERASE 19 U/L (12-78); ALBUMIN 3.2 g/dL (3.4-5.0); ALKALINE PHOSPHATASE 71 U/L (46-116); ASPARTATE AMINOTRANSFERASE 19 U/L (15-37); BILIRUBIN,DIRECT 0.1 mg/dL (0.0-0.2); BILIRUBIN,TOTAL 0.2 mg/dL (0.2-1.0)
[2020-03-02 14:47] LABS: EOSINOPHILS % (MANUAL) 2 % (0-4); LYMPHOCYTES % (MANUAL) 13 % (16-48); MONOCYTES % (MANUAL) 19 % (0-11.0); NEUTROPHILS % (MANUAL) 66 (42-76)
[2020-03-02] MEDS ORDERED: INSULIN REGULAR, HUMAN 100 UNIT/ML 10 ML VIAL IV ONE (16:00)
[2020-03-02] MEDS ORDERED: DEXTROSE 50%-WATER 50 ML DISP.SYRIN IV ONE (16:00)
[2020-03-02] MEDS ORDERED: SODIUM POLYSTYRENE SULFONATE 15 G/60 ML BOTTLE PO ONE (16:00)
[2020-03-02] MEDS ORDERED: ALBUTEROL FS 2.5 MG/3 ML VIAL.NEB NEB ONE (16:00)
[2020-03-02] MEDS ORDERED: INSULIN REGULAR, HUMAN 100 UNIT/ML 10 ML VIAL ONE (16:02)
[2020-03-02] MEDS ORDERED: DEXTROSE 50%-WATER 50 ML DISP.SYRIN ONE (16:02)
[2020-03-02] MEDS ORDERED: SODIUM POLYSTYRENE SULFONATE 15 G/60 ML BOTTLE ONE (16:02)
--- NOTE | 2020-03-02 16:30 | NUR ---
ADMISSION ORDERS RECEIVED FROM DR BURNHAM, PLACED IN CHART
[2020-03-02] MEDS ORDERED: ALBUTEROL FS 2.5 MG/3 ML VIAL.NEB ONE (16:31)
--- NOTE | 2020-03-02 16:49 | NUR ---
ONGOING BREATHING TREATMENT
--- NOTE | 2020-03-02 16:57 | NUR ---
room assignment: 201 T
--- NOTE | 2020-03-02 16:58 | NUR ---
bed assigned 201
--- NOTE | 2020-03-02 17:12 | NUR ---
room assignment change to 203
--- NOTE | 2020-03-02 17:45 | NUR ---
SECRET SERVICE AGENT NOTES RECEIVED PATIENT FROM ER. PATIENT ALERT, ORIENTED X2, NO SOB OR ACUTE DISTRESS NOTED. PATIENT ORIENTED TO ROOM. CALL LIGHT WITHIN REACH. BED IN LOW LOCKED POSITION. TELE MONITOR APPLIED, PATIENT SINUS RHYTHM. SAFETY MEASURES IN PLACE. WILL CONTINUE TO MONITOR.
[2020-03-02 18:00] VITALS: BP 165/74
[2020-03-02] MEDS: HEPARIN SODIUM, PORCINE 5000 UNITS/1 ML VIAL SQ SCH (19:20)
[2020-03-02] MEDS: IV NS 0.9% 1,000 ML IV PRN (19:21)
--- NOTE | 2020-03-02 19:41 | NUR ---
MEDICAL INSURANCE CLERK NOTES PATIENT IN BED RESTING NO SOB OR ACUTE DISTRESS NOTED. ALL DUE MEDICATIONS ADMINISTERED. ALL NEEDS MET. ENDORSED CARE TO PM SHIFT.
--- NOTE | 2020-03-02 19:45 | NUR ---
TOLL GATE TENDER OPENING NOTE: Patient in bed awake and oriented x4. Patient able to make needs known. On 2L Oxygen via nasal canula. Patient breathing well, no SOB or acute respiratory distress noted. IV access noted on right forearm, 20 gauge, patent, dressing dry and intact, no redness, or infiltration. Safety precaution is in place, bed is in the lowest level, bed is locked, alarm is on, side rails x2 are up, and call light is within reach. Will continue to monitor.
[2020-03-02 20:00] VITALS: BP 166/83
[2020-03-02 20:21] VITALS: BP 166/83
[2020-03-02 22:30] VITALS: BP 197/104
--- NOTE | 2020-03-02 22:57 | NUR ---
DROP SHIPMENT CLERK NOTE: Patient BP elevated, 166/83, rechecked 197/104. Shanta DRUMMOND, Dr. Bowman, aware. Dr. Bowman ordered Clonidine 0.1mg PO Q6h PRN. Read back and carried out.
[2020-03-02] MEDS: CLONIDINE HCL 0.1 MG TABLET PO PRN (23:11)
--- NOTE | 2020-03-02 23:11 | NUR ---
COAL BRIQUETTE MACHINE OPERATOR NOTE: Patient with elevated BP. Administered PRN Clonidine per MD order. Will continue to monitor.
[2020-03-03] VITALS (10 sets, daily range): BP systolic 137–205; BP diastolic 80–105
[2020-03-03] MEDS: MORPHINE SULFATE INJ 4 MG/ML DISP.SYRIN IV PRN ×2 (00:26→05:10)
--- NOTE | 2020-03-03 00:26 | NUR ---
DAIRY BACTERIOLOGIST NOTE: Patient complains of lower back pain. Patient rates pain an 8 on a 0-10 numerical scale and describes it as aching. Administered PRN Morphine per MD order. Will continue to monitor.
--- NOTE | 2020-03-03 01:00 | NUR ---
MOVER HELPER NOTE: Rechecked BP, 182/105. Made MD aware. No new orders at this time.
[2020-03-03] MEDS ORDERED: CARVEDILOL 12.5 MG TABLET PO ONE (02:30)
--- NOTE | 2020-03-03 02:33 | NUR ---
MEDICAL APPOINTMENT CLERK NOTE: MD order Carvedilol 12.5Mg PO BID and Carvedilol 12.5Mg PO Now. Read order back and carried out.
--- NOTE | 2020-03-03 02:53 | NUR ---
SCHOOL ADMISSIONS REPRESENTATIVE NOTE: Administered one time Carvedilol per MD order for increased BP. Will continue to monitor.
--- NOTE | 2020-03-03 05:10 | NUR ---
HOUSE FELLOW NOTE: Patient complains of pain on his lower back. Patient describes pain as aching and sharp; rates pain 8 on a 0-10 numerical scale. Administered PRN Morphine per MD order. Will continue to monitor.
[2020-03-03] MEDS: CLONIDINE HCL 0.1 MG TABLET PO PRN ×2 (05:14→11:18)
--- NOTE | 2020-03-03 05:14 | NUR ---
GLASS TUBE BENDER NOTE: Patient BP elevated. Administered PRN Clonidine per MD order. Will continue to monitor.
--- NOTE | 2020-03-03 05:40 | NUR ---
ELEVATOR REPAIRER APPRENTICE NOTE: Patient rates pain 3 on a 0-10 numerical scale and stated pain medication "effective."
--- NOTE | 2020-03-03 06:40 | NUR ---
FUR NAILER CLOSING NOTE: Patient in bed comfortably awake. All needs were met. Patient is breathing well with no signs of respiratory distress or SOB. Safety measures is maintained, bed is in the lowest level, bed is locked, alarm is on, side rails x2 are up, and call light is within reach. Will endorse to next shift.
[2020-03-03 07:40] LABS: BASOPHILS % (AUTO) 0.3 % (0.0-2.0); EOSINOPHILS % (AUTO) 0.9 % (0.0-6.0); HEMATOCRIT 38 % (39-51); HEMOGLOBIN 12.6 g/dL (13.5-17.5); LYMPHOCYTES # (AUTO) 1.3 /CMM (0.8-4.8); MEAN CORPUSCULAR HGB CONC 33 g/dl (31.0-36.0); MEAN CORPUSCULAR VOLUME 99 fL (80-96); NEUTROPHILS # (AUTO) 11.5 /CMM (1.8-8.9); NEUTROPHILS % (AUTO) 71.8 % (43.0-81.0); PLATELET COUNT (AUTO) 227 /CMM (150-450); RED BLOOD CELL COUNT(AUTO) 3.85 MIL/uL (4.5-6.0); WHITE BLOOD COUNT (AUTO) 15.9 K/uL (4.3-11.0)
--- NOTE | 2020-03-03 07:49 | NUR ---
RN OPENING NOTE Patient is resting in bed, A/O x4, with periods of confusion, showing no signs of acute distress or SOB, stable on 2L NC. Patient is on bedrest, able to use urinal and bedpan. IV line in the left wrist #22h is clean and intact running NS@75mls/hr. Isolation precautions to r/o covid. Bed is in lowest position, side rails x3 in upright position, call light is within reach, will continue with plan of care.
[2020-03-03] MEDS: PANTOPRAZOLE 40 MG TABLET.DR PO SCH (08:03)
[2020-03-03] MEDS: CARVEDILOL 12.5 MG TABLET PO SCH ×2 (08:03→16:44)
[2020-03-03] MEDS: HEPARIN SODIUM, PORCINE 5000 UNITS/1 ML VIAL SQ SCH ×2 (08:07→21:20)
[2020-03-03 08:12] LABS: CALCIUM, SERUM 7.9 mg/dL (8.5-10.1); CARBON DIOXIDE 24 mmol/L (21-32); CHLORIDE 109 mmol/L (98-107); CREATININE 1.9 mg/dL (0.6-1.3); GLUCOSE 99 mg/dL (74-106); PHOSPHORUS 3.4 mg/dL (2.5-4.9); POTASSIUM 4.8 mmol/L (3.5-5.1); SODIUM SERUM 142 mmol/L (136-145); UREA NITROGEN, BLOOD 30 mg/dL (7-18)
--- NOTE | 2020-03-03 08:46 | NUR ---
RN NOTE Notified MD of patients elevated BP and that med-recon needs to be completed. Per T.O, to start all home medications. No other orders. Will continue to monitor.
[2020-03-03 08:48] LABS: URIC ACID 7.9 mg/dL (2.6-7.2)
[2020-03-03] MEDS ORDERED: CARVEDILOL 12.5 MG TABLET PO SCH (09:00)
[2020-03-03] MEDS ORDERED: CALCIUM CARBONATE 500 MG TAB.CHEW PO PRN (09:00)
[2020-03-03] MEDS ORDERED: NAPROXEN 500 MG TABLET PO PRN (09:00)
[2020-03-03] MEDS ORDERED: ISOSORBIDE MONONITRATE 60 MG TAB.SR.24H PO SCH (09:30)
[2020-03-03] MEDS: GABAPENTIN 300 MG CAPSULE PO SCH ×3 (09:36→16:42)
[2020-03-03] MEDS: LamoTRIgine 25 MG TABLET PO SCH ×2 (09:36→16:42)
[2020-03-03] MEDS: DIVALPROEX SODIUM 250 MG TABLET.DR PO SCH ×2 (09:36→16:42)
[2020-03-03] MEDS: QUETIAPINE FUMARATE 100 MG TABLET PO SCH ×2 (09:36→16:43)
[2020-03-03 10:23] LABS: BAND % (MANUAL) 3 % (0.0-5.0); LYMPHOCYTES % (MANUAL) 13 % (16-48); MONOCYTES % (MANUAL) 13 % (0-11.0); NEUTROPHILS % (MANUAL) 71 (42-76)
[2020-03-03] MEDS: FLUTICASONE PROPIONATE 16 GM BOTTLE NS SCH ×2 (11:04→16:44)
[2020-03-03] MEDS: hydrALAZINE HCL 50 MG TABLET PO SCH ×2 (13:07→16:43)
[2020-03-03] MEDS: DOXAZOSIN MESYLATE (1 MG) 1 MG TABLET PO SCH ×2 (15:25→21:16)
[2020-03-03] MEDS: HYDROCODONE/APAP 5/325MG TABLET PO PRN (15:44)
[2020-03-03] MEDS ORDERED: NIFEdipine XL (30MG) 30 MG TAB PO ONE (16:00)
--- NOTE | 2020-03-03 16:05 | NUR ---
RN NOTE Notified dr. Bowman that patient's BP remains elevated after daily BP meds and PRNs have been given. Received T.O. order for: - PROCARDIA XL 60mg PO NOW - PROCARDIA XL 60mg PO daily starting tomorrow AM. Orders repeated back and will continue to monitor. Addendum: 03/03/20 at 1630 by DUY VARELA RN PER MD TO MARY PROCARDIA AND START PATIENT ON: - MINOXIDIL 5 MG PO NOW AND START DAILY TOMORROW.
[2020-03-03] MEDS ORDERED: MINOXIDIL (2.5MG) 2.5 MG TABLET PO ONE (16:30)
--- NOTE | 2020-03-03 17:20 | NUR ---
RN NOTE Patient BP went down to 173/92 HR 84. Patient remain asymptomatic, stable, a/ox4, showing no signs of acute distress, will continue to monitor.
[2020-03-03] MEDS: IV NS 0.9% 1,000 ML IV PRN (17:54)
--- NOTE | 2020-03-03 18:09 | NUR ---
RN CLOSING NOTE Patient is resting in bed, A/O x3-4, with periods of confusion, showing no signs of acute distress or SOB, stable on 2L NC. IV line in the left wrist #22h is clean and intact running NS@40mls/hr. All patient needs met, all due medications given, patient kept clean and dry throughout shift. Skin protectin measures implemented. Isolation precautions to r/o covid. Bed is in lowest position, side rails x3 in upright position, call light is within reach, will endorse to table games shift manager for flavia.
--- NOTE | 2020-03-03 19:38 | NUR ---
STAMP ANALYST NOTES PATIENT IN BED, AWAKE, ALERT AND ORIENTED X 3-4 WITH PERIODS OF CONFUSION. BREATHING EVEN AND UNLABORED ON 2L NC. SHOWS NO SIGNS OF RESPIRATORY DISTRESS, NO SIGNS OF ACUTE PAIN. TELE MONITOR SR WITH PVC'S. IN ON L WRIST 22G RUNNING NS AT 40ML/HR. SHOWS NO SIGNS OF INFILTRATION, NO REDNESS. SAFETY PRECAUTIONS IN PLACE. BED IN LOWEST POSITION, LOCKED, AND CALL LIGHT KEPT WITHIN REACH. WILL CONTINUE TO MONITOR.
[2020-03-03] MEDS: TRAZODONE 50 MG TABLET PO SCH (21:16)
[2020-03-04 04:36] VITALS: BP 158/85
[2020-03-04] MEDS: HYDROCODONE/APAP 5/325MG TABLET PO PRN ×2 (05:41→17:15)
--- NOTE | 2020-03-04 05:41 | NUR ---
IMPORT CLERK NOTES PATIENT COMPLAINING OF BACK PAIN 11/21. GIVEN PRN NORCO AT 0541. VITAL SIGNS WNL. WILL CONTINUE TO MONITOR.
--- NOTE | 2020-03-04 06:36 | NUR ---
CNS NOTES PATIENT IN BED, AWAKE, ALERT AND ORIENTED X 3-4 WITH PERIODS OF CONFUSION. BREATHING EVEN AND UNLABORED ON 2L NC. SHOWS NO SIGNS OF RESPIRATORY DISTRESS, NO SIGNS OF ACUTE PAIN. TELE MONITOR SR WITH PVC'S. IV ON L WRIST 22G RUNNING NS AT 40ML/HR. SHOWS NO SIGNS OF INFILTRATION, NO REDNESS. ALL DUE MEDICATIONS GIVEN. ALL NEEDS ATTENDED TO. SAFETY PRECAUTIONS IN PLACE. BED IN LOWEST POSITION, LOCKED, AND CALL LIGHT KEPT WITHIN REACH. WILL ENDORSE TO ONCOMING NURSE.
[2020-03-04 06:50] LABS: BASOPHILS % (AUTO) 0.3 % (0.0-2.0); EOSINOPHILS % (AUTO) 2.2 % (0.0-6.0); HEMATOCRIT 42 % (39-51); HEMOGLOBIN 13.6 g/dL (13.5-17.5); LYMPHOCYTES # (AUTO) 1.4 /CMM (0.8-4.8); LYMPHOCYTES % (AUTO) 11.1 % (20.0-44.0); MEAN CORPUSCULAR HGB CONC 33 g/dl (31.0-36.0); MEAN CORPUSCULAR VOLUME 99 fL (80-96); MONOCYTES # (AUTO) 2.7 /CMM (0.1-1.30); NEUTROPHILS # (AUTO) 8.5 /CMM (1.8-8.9); NEUTROPHILS % (AUTO) 65.4 % (43.0-81.0); PLATELET COUNT (AUTO) 221 /CMM (150-450); RED BLOOD CELL COUNT(AUTO) 4.21 MIL/uL (4.5-6.0)
[2020-03-04 07:04] LABS: CREATINE KINASE, TOTAL 271 U/L (39-308)
[2020-03-04 07:12] LABS: ALANINE AMINOTRANSFERASE 20 U/L (12-78); ALBUMIN 2.9 g/dL (3.4-5.0); ALKALINE PHOSPHATASE 70 U/L (46-116); ASPARTATE AMINOTRANSFERASE 26 U/L (15-37); BILIRUBIN,TOTAL 0.5 mg/dL (0.2-1.0); CALCIUM, SERUM 8.6 mg/dL (8.5-10.1); CARBON DIOXIDE 25 mmol/L (21-32); CHLORIDE 109 mmol/L (98-107); CREATININE 1.8 mg/dL (0.6-1.3); GLUCOSE 97 mg/dL (74-106); MAGNESIUM 2.1 mg/dL (1.8-2.4); PHOSPHORUS 2.9 mg/dL (2.5-4.9); POTASSIUM 4.3 mmol/L (3.5-5.1); SODIUM SERUM 142 mmol/L (136-145); UREA NITROGEN, BLOOD 29 mg/dL (7-18)
--- NOTE | 2020-03-04 07:29 | NUR ---
TELE/RN OPENING NOTES RECEIVED PATIENT ON BED, AWAKE, ALERT AND ORIENTED X4. PATIENT IN NO APPARENT RESPIRATORY DISTRESS NOTED. TELE MONITOR IN PLACED READING SINUS TACH 111 BPM. NO SIGN AND SYMPTOM OF PAIN NOTED. WILL CONTINUE TO MONITOR.
[2020-03-04] MEDS: PANTOPRAZOLE 40 MG TABLET.DR PO SCH (07:37)
[2020-03-04 08:00] VITALS: BP 175/88
[2020-03-04] MEDS: MINOXIDIL (2.5MG) 2.5 MG TABLET PO SCH (08:38)
[2020-03-04] MEDS: LamoTRIgine 25 MG TABLET PO SCH ×2 (08:38→17:06)
[2020-03-04] MEDS: DIVALPROEX SODIUM 250 MG TABLET.DR PO SCH ×2 (08:38→17:06)
[2020-03-04] MEDS: hydrALAZINE HCL 50 MG TABLET PO SCH ×3 (08:39→17:09)
[2020-03-04] MEDS: GABAPENTIN 300 MG CAPSULE PO SCH ×3 (08:39→17:06)
[2020-03-04] MEDS: AMLODIPINE BESYLATE 10 MG TABLET PO SCH (08:39)
[2020-03-04] MEDS: CARVEDILOL 12.5 MG TABLET PO SCH ×2 (08:39→17:06)
[2020-03-04] MEDS: QUETIAPINE FUMARATE 100 MG TABLET PO SCH ×2 (08:41→17:11)
[2020-03-04] MEDS: HEPARIN SODIUM, PORCINE 5000 UNITS/1 ML VIAL SQ SCH ×2 (08:44→21:22)
[2020-03-04] MEDS: ISOSORBIDE MONONITRATE (30MG) 30 MG TAB.SR.24H PO SCH (08:47)
[2020-03-04] MEDS ORDERED: NIFEdipine XL (30MG) 30 MG TAB PO SCH (09:00)
[2020-03-04] MEDS: FLUTICASONE PROPIONATE 16 GM BOTTLE NS SCH ×2 (09:12→17:12)
[2020-03-04 09:55] LABS: BAND % (MANUAL) 1 % (0.0-5.0); EOSINOPHILS % (MANUAL) 3 % (0-4); LYMPHOCYTES % (MANUAL) 6 % (16-48); MONOCYTES % (MANUAL) 21 % (0-11.0); MYELOCYTES % 1 % (0-0); NEUTROPHILS % (MANUAL) 68 (42-76)
[2020-03-04 12:00] VITALS: BP 158/83
[2020-03-04 12:01] VITALS: BP 141/75
[2020-03-04 16:00] VITALS: BP 158/83
--- NOTE | 2020-03-04 19:28 | NUR ---
TELE/RN CLOSING NOTES PATIENT IS ON BED. ALERT AND ORIENTED X4. PATIENT IN NO APPARENT RESPIRATORY DISTRESS NOTED. NO COMPLAINED OF PAIN. TELE MONITOR IN PLACE READING SINU WITH BB 94BPM. IV ACCESS AT RIGHT HAND # 22 G PATENT AND INTACT. SEEN AND EXAMINED BY MD WITH ORDERS MADE AND CARRIED OUT. ALL DUE MEDICATION WAS GIVEN. SAFETY PRECAUTIONS IN PLACED. BED IN LOWEST POSITION AND LOCKED. SIDERAILS UP X2. CALL LIGHT WITHIN REACH.WILL ENDORSED TO SERVICES PROGRAM MANAGER FOR LAURO.
--- NOTE | 2020-03-04 19:35 | NUR ---
COMPUTER TAPE LIBRARIAN NOTES PATIENT IN BED, AWAKE, ALERT AND ORIENTED X 3-4 WITH PERIODS OF CONFUSION. BREATHING EVEN AND UNLABORED ON 2L NC. SHOWS NO SIGNS OF RESPIRATORY DISTRESS, NO SIGNS OF ACUTE PAIN. TELE MONITOR SR WITH PVC'S. IN ON L WRIST 22G SL. SHOWS NO SIGNS OF INFILTRATION, NO REDNESS. SAFETY PRECAUTIONS IN PLACE. BED IN LOWEST POSITION, LOCKED, AND CALL LIGHT KEPT WITHIN REACH. WILL CONTINUE TO MONITOR.
[2020-03-04 20:00] VITALS: BP 123/61
[2020-03-04] MEDS: TRAZODONE 50 MG TABLET PO SCH (21:20)
[2020-03-04] MEDS: DOXAZOSIN MESYLATE (1 MG) 1 MG TABLET PO SCH (21:23)
[2020-03-05] VITALS (7 sets, daily range): BP systolic 125–180; BP diastolic 61–94
--- NOTE | 2020-03-05 06:31 | NUR ---
NURSE CASE MANAGEMENT NOTES PATIENT IN BED, ASLEEP, ALERT AND ORIENTED X 3-4 WITH PERIODS OF CONFUSION. BREATHING EVEN AND UNLABORED ON 2L NC. SHOWS NO SIGNS OF RESPIRATORY DISTRESS, NO SIGNS OF ACUTE PAIN. TELE MONITOR SR WITH BBB. IV ON R HAND 22G. SHOWS NO SIGNS OF INFILTRATION, NO REDNESS. ALL DUE MEDICATIONS GIVEN. ALL NEEDS ATTENDED TO. SAFETY PRECAUTIONS IN PLACE. BED IN LOWEST POSITION, LOCKED, AND CALL LIGHT KEPT WITHIN REACH. WILL ENDORSE TO ONCOMING NURSE.
[2020-03-05 07:05] LABS: BASOPHILS # (AUTO) 0.1 /CMM (0.0-0.2); BASOPHILS % (AUTO) 0.7 % (0.0-2.0); EOSINOPHILS % (AUTO) 2.3 % (0.0-6.0); HEMATOCRIT 41 % (39-51); HEMOGLOBIN 13.2 g/dL (13.5-17.5); LYMPHOCYTES # (AUTO) 1.5 /CMM (0.8-4.8); LYMPHOCYTES % (AUTO) 11.1 % (20.0-44.0); MEAN CORPUSCULAR HGB CONC 32 g/dl (31.0-36.0); MEAN CORPUSCULAR VOLUME 100 fL (80-96); MONOCYTES # (AUTO) 2.7 /CMM (0.1-1.30); MONOCYTES % (AUTO) 19.8 % (2.0-12.0); NEUTROPHILS % (AUTO) 66.1 % (43.0-81.0); PLATELET COUNT (AUTO) 208 /CMM (150-450); RED BLOOD CELL COUNT(AUTO) 4.07 MIL/uL (4.5-6.0); WHITE BLOOD COUNT (AUTO) 13.7 K/uL (4.3-11.0)
[2020-03-05 07:34] LABS: CALCIUM, SERUM 8.9 mg/dL (8.5-10.1); CARBON DIOXIDE 20 mmol/L (21-32); CHLORIDE 111 mmol/L (98-107); GLUCOSE 107 mg/dL (74-106); MAGNESIUM 2.5 mg/dL (1.8-2.4); POTASSIUM 4.1 mmol/L (3.5-5.1); SODIUM SERUM 143 mmol/L (136-145); UREA NITROGEN, BLOOD 37 mg/dL (7-18)
--- NOTE | 2020-03-05 08:00 | NUR ---
RN OPENING NOTE Patient is resting in bed, A/O x4, with periods of confusion, c/o SOB, saturating 92% on 2L NC, Dr. Bowman is aware. Patient is on bedrest, able to use urinal and bedpan. IV line in the right hand #22g is clean and intact s/l. Isolation precautions to r/o covid. Bed is in lowest position, side rails x3 in upright position, call light is within reach, will continue with plan of care.
[2020-03-05] MEDS: DIVALPROEX SODIUM 250 MG TABLET.DR PO SCH ×2 (08:33→16:04)
[2020-03-05] MEDS: ISOSORBIDE MONONITRATE (30MG) 30 MG TAB.SR.24H PO SCH (08:38)
[2020-03-05] MEDS: QUETIAPINE FUMARATE 100 MG TABLET PO SCH ×2 (08:38→16:03)
[2020-03-05] MEDS: AMLODIPINE BESYLATE 10 MG TABLET PO SCH (08:38)
[2020-03-05] MEDS: CARVEDILOL 12.5 MG TABLET PO SCH ×2 (08:39→16:03)
[2020-03-05] MEDS: LamoTRIgine 25 MG TABLET PO SCH ×2 (08:39→16:04)
[2020-03-05] MEDS: hydrALAZINE HCL 50 MG TABLET PO SCH ×3 (08:39→16:03)
[2020-03-05] MEDS: MINOXIDIL (2.5MG) 2.5 MG TABLET PO SCH (08:39)
[2020-03-05] MEDS: PANTOPRAZOLE 40 MG TABLET.DR PO SCH (08:40)
[2020-03-05] MEDS: GABAPENTIN 300 MG CAPSULE PO SCH ×3 (08:40→16:03)
[2020-03-05] MEDS: FLUTICASONE PROPIONATE 16 GM BOTTLE NS SCH ×2 (08:40→16:04)
[2020-03-05] MEDS: HEPARIN SODIUM, PORCINE 5000 UNITS/1 ML VIAL SQ SCH ×2 (09:03→22:01)
[2020-03-05 09:46] LABS: LYMPHOCYTES % (MANUAL) 11 % (16-48); MONOCYTES % (MANUAL) 22 % (0-11.0); NEUTROPHILS % (MANUAL) 67 (42-76)
[2020-03-05 10:07] LABS: PTH, INTACT 70 pg/mL (15-65)
[2020-03-05] MEDS ORDERED: FUROSEMIDE 20 MG/2 ML VIAL IV ONE (10:30)
[2020-03-05 13:07] LABS: *SPE ALBUMIN 3.3 g/dL (2.9-4.4); *SPE ALPHA-1-GLOBULIN 0.4 g/dL (0.0-0.4); *SPE ALPHA-2-GLOBULIN 0.9 g/dL (0.4-1.0); *SPE GLOBULIN, TOTAL 3.2 g/dL (2.2-3.9); *SPE M-SPIKE Not Observed g/dL (Not Observed)
--- NOTE | 2020-03-05 13:23 | NUR ---
RN NOTE Patient continues to c/o SOB, O2 sat 92% on 2L NC ok per MD due to history of COPD. Today's CXR results sent to MD. No new orders at this time. Will continue to monitor.
[2020-03-05] MEDS: ALBUTEROL SULFATE INH 18 GM HFA.AER.AD IH PRN (15:05)
[2020-03-05] MEDS: HYDROCODONE/APAP 5/325MG TABLET PO PRN ×2 (16:03→22:00)
--- NOTE | 2020-03-05 17:25 | NUR ---
PATIENT TRANSFERRED TO 3W CLEAN FLOOR. DC TELE PER MD. BEDSIDE REPORT GIVEN TO FELICITAS WISDOM.
--- NOTE | 2020-03-05 17:46 | NUR ---
MS/RN NOTES RECEIVED REPORT FROM DUY WISDOM FOR LAURO.
--- NOTE | 2020-03-05 19:03 | NUR ---
MS/RN CLOSING NOTES PATIENT IS ON BED. NO COMPLAINED OF PAIN AT THIS TIME. PATIENT IN NO APPARENT RESPIRATORY DISTRESS NOTED. IV ACCESS AT RIGHT HAND # 22G PATENT AND INTACT. SEEN AND EXAMINED BY MD WITH ORDERS MADE AND CARRIED OUT. ALL DUE MEDICATION WAS GIVEN. SAFETY PRECAUTION WAS IN PLACE. BED IN LOWEST POSITION AND LOCKED. SIDERAILS UP X 2.
--- NOTE | 2020-03-05 19:30 | NUR ---
MS/RN OPENING NOTES RECEIVED PATIENT IS BED RESTING. PATIENT IS ALERT AND ORIENTED X 3. PATIENT IS IN NOT SIGNS OF DISTRESS. NO SIGNS OF SOB OR RESPIRATORY DISTRESS NOTED. PATIENT HAS IV ACCESS ON RIGHT HAND #[address] FLUSHING WELL SL. PATIENT PLACED IN COMFORTABLE POSITION. SAFETY MEASURES ARE IN PLACE, BED IS IN THE LOWEST POSITION, SIDE RAILS UP X 2. CALL LIGHT IS WITHIN REACH. WILL CONTINUE TO MONITOR THROUGHOUT SHIFT.
[2020-03-05] MEDS: TRAZODONE 50 MG TABLET PO SCH (20:46)
[2020-03-05] MEDS: DOXAZOSIN MESYLATE (1 MG) 1 MG TABLET PO SCH (21:59)
--- NOTE | 2020-03-05 22:05 | NUR ---
MS/RN NOTES PATIENT COMPLAINING OF PAIN GENERALIZED THROUGH OUT BODY. PATIENT GIVEN NORCO 5MG PO. V/S ARE STABLE. WILL CONTINUE TO MONITOR.
--- NOTE | 2020-03-06 06:30 | NUR ---
MS/RN CLOSING NOTES PATIENT IN BED SLEEPING, EASY TO AROUSE. PATIENT IS ALERT AND ORIENTED X 3. PATIENT IS IN NO SIGNS OF DISTRESS. NO SIGNS OF SOB OR RESPIRATORY DISTRESS NOTED. PATIENT HAS IV ACCESS ON RIGHT HAND #[address] FLUSHING WELL S/L. PATIENT IN COMFORTABLE POSITION. ALL PATIENTS NEEDS HAVE BEEN MET DURING SHIFT. SAFETY MEASURES ARE IN PLACE, BED IS IN THE LOWEST POSITION, SIDE RAILS UP X 2. CALL LIGHT IS WITHIN REACH. WILL ENDORSE CARE TO DAY SHIFT NURSE.
--- NOTE | 2020-03-06 07:46 | NUR ---
MS RN OPENING NOTES BEDSIDE ENDORSEMENT DONE. PATIENT IS SLEEPING IN BED BUT ABLE TO BE AWAKENED. A/O X3, ABLE TO MAKE NEEDS KNOWN. BREATHING EVEN AND UNLABORED IN ROOM AIR, NO RESPIRATORY DISTRESS NOTED. IV LINE AT RIGHT HAND #22, INTACT AND PATENT. SAFETY PRECAUTION IN PLACE: BED LOCKED AND ON LOWEST POSITION, SIDERAILS UP X2, CALL LIGHT W/IN REACH. WILL CONTINUE TO MONITOR.
[2020-03-06 08:00] VITALS: BP 149/74
[2020-03-06] MEDS: GABAPENTIN 300 MG CAPSULE PO SCH ×3 (09:13→16:58)
[2020-03-06] MEDS: CARVEDILOL 12.5 MG TABLET PO SCH ×2 (09:13→17:00)
[2020-03-06] MEDS: DIVALPROEX SODIUM 250 MG TABLET.DR PO SCH ×2 (09:13→16:58)
[2020-03-06] MEDS: QUETIAPINE FUMARATE 100 MG TABLET PO SCH ×2 (09:13→16:59)
[2020-03-06] MEDS: hydrALAZINE HCL 50 MG TABLET PO SCH ×3 (09:14→17:00)
[2020-03-06] MEDS: LamoTRIgine 25 MG TABLET PO SCH ×2 (09:14→16:59)
[2020-03-06] MEDS: predniSONE 20 MG TABLET PO SCH (09:14)
[2020-03-06] MEDS: AMLODIPINE BESYLATE 10 MG TABLET PO SCH (09:15)
[2020-03-06] MEDS: MINOXIDIL (2.5MG) 2.5 MG TABLET PO SCH (09:15)
[2020-03-06] MEDS: ISOSORBIDE MONONITRATE (30MG) 30 MG TAB.SR.24H PO SCH (09:15)
[2020-03-06] MEDS: HEPARIN SODIUM, PORCINE 5000 UNITS/1 ML VIAL SQ SCH ×2 (09:19→21:33)
[2020-03-06] MEDS: FLUTICASONE PROPIONATE 16 GM BOTTLE NS SCH ×2 (09:22→17:07)
[2020-03-06] MEDS: PANTOPRAZOLE 40 MG TABLET.DR PO SCH (09:23)
[2020-03-06 16:00] VITALS: BP 130/62
[2020-03-06] MEDS: HYDROCODONE/APAP 5/325MG TABLET PO PRN (17:01)
[2020-03-06 17:05] LABS: CREATININE, URINE 177.6 MG/DL (30.0-125.0)
[2020-03-06 17:16] LABS: BILIRUBIN,URINE NEGATIVE (NEGATIVE); BLOOD, URINE NEGATIVE Ery/uL (NEGATIVE); COLOR,URINE YELLOW (YELLOW); LEUKOCYTE ESTERASE ,URINE SMALL (NEGATIVE); NITRITE, URINE NEGATIVE (NEGATIVE); PH,URINE 5.5 (5.0-8.0); PROTEIN,URINE 100 mg/dl (NEGATIVE); UGLUCOSE NEGATIVE (NEGATIVE); UROBILINOGEN,URINE 0.2 EU/dL (0.2)
[2020-03-06 17:31] LABS: BACTERIA,URINE Few /HPF (None Seen); RBC,URINE 0-2 /HPF (0-2); SQUAMOUS EPITHELIAL CELL,UR Few /HPF (None Seen); WBC,URINE 21-50 /HPF (0-3)
--- NOTE | 2020-03-06 18:49 | NUR ---
MS RN CLOSING NOTES PATIENT IS IN BED, AWAKE AND VERBALLY RESPONSIVE. A/O X2-3, ABLE TO MAKE NEEDS KNOWN. BREATHING EVEN AND UNLABORED, ON O2 AT 2LPM VIA NC, NO RESPIRATORY DISTRESS NOTED. NO COMPLAINT OF PAIN AT THIS TIME. IV LINE AT RIGHT HAND #22, INTACT AND PATENT. ABLE TO COLLECT URINE SAMPLE FOR LABS PER MD. ALL DUE MEDS GIVEN. SAFETY PRECAUTION MAINTAINED: BED LOCKED AND ON LOWEST POSITION, SIDERAILS UP X2, CALL LIGHT W/IN REACH. WILL ENDORSE TO OSTRICH FARMER RN FOR LAURO.
--- NOTE | 2020-03-06 19:30 | NUR ---
MS/RN OPENING NOTES RECEIVED PATIENT IN BED RESTING. PATIENT IS ALERT AND ORIENTED X 3. NO SIGNS OF SOB OR RESPIRATORY DISTRESS NOTED. PATIENTS BREATHING IS EVEN AND UNLABORED. PATIENT STATES NO PAIN AT THIS TIME. PATIENT HAS IV ACCESS ON RIGHT HAND #22 G S/L. SAFETY MEASURES ARE IN PLACE, BED IS LOCKED AND PLACED IN THE LOW POSITION, SIDE RAILS UP X 3, BED ALARM ON. CALL LIGHT IS WITHIN REACH. WILL CONTINUE TO MONITOR THROUGH OUT SHIFT.
[2020-03-06 20:00] VITALS: BP 117/60
[2020-03-06] MEDS: DOXAZOSIN MESYLATE (1 MG) 1 MG TABLET PO SCH (21:32)
[2020-03-06] MEDS: TRAZODONE 50 MG TABLET PO SCH (21:37)
[2020-03-06 22:59] LABS: EOSINOPHIL,URINE None Seen
[2020-03-06 23:26] VITALS: BP 117/60
[2020-03-07 06:59] LABS: ALANINE AMINOTRANSFERASE 44 U/L (12-78); ALBUMIN 2.8 g/dL (3.4-5.0); ALKALINE PHOSPHATASE 51 U/L (46-116); ASPARTATE AMINOTRANSFERASE 80 U/L (15-37); BILIRUBIN,TOTAL 0.4 mg/dL (0.2-1.0); CALCIUM, SERUM 8.4 mg/dL (8.5-10.1); CARBON DIOXIDE 19 mmol/L (21-32); CHLORIDE 107 mmol/L (98-107); CREATININE 2.7 mg/dL (0.6-1.3); GLUCOSE 87 mg/dL (74-106); MAGNESIUM 2.7 mg/dL (1.8-2.4); PHOSPHORUS 4.1 mg/dL (2.5-4.9); SODIUM SERUM 141 mmol/L (136-145); TOTAL PROTEIN, SERUM 6.6 g/dL (6.4-8.2); UREA NITROGEN, BLOOD 71 mg/dL (7-18)
--- NOTE | 2020-03-07 07:00 | NUR ---
MS/RN CLOSING NOTES PATIENT IN BED SLEEPING. PATIENT IS ALERT AND ORIENTED X 3. NO SIGNS OF SOB OR RESPIRATORY DISTRESS NOTED. PATIENTS BREATHING IS EVEN AND UNLABORED. PATIENT STATES NO PAIN AT THIS TIME. PATIENT HAS IV ACCESS ON RIGHT HAND #22 G S/L. ALL NEEDS HAVE BEEN MET DURING SHIFT. PATIENT IN NO SIGNS OF DISTRESS. SAFETY MEASURES ARE IN PLACE, BED IS LOCKED AND PLACED IN THE LOW POSITION, SIDE RAILS UP X 3, BED ALARM ON. CALL LIGHT IS WITHIN REACH. WILL ENDORSE CARE TO DAY SHIFT.
[2020-03-07 07:07] LABS: BASOPHILS % (AUTO) 0.1 % (0.0-2.0); EOSINOPHILS % (AUTO) 0.2 % (0.0-6.0); HEMATOCRIT 36 % (39-51); HEMOGLOBIN 11.9 g/dL (13.5-17.5); LYMPHOCYTES # (AUTO) 1.2 /CMM (0.8-4.8); LYMPHOCYTES % (AUTO) 11.4 % (20.0-44.0); MEAN CORPUSCULAR HGB CONC 33 g/dl (31.0-36.0); MEAN CORPUSCULAR VOLUME 100 fL (80-96); MONOCYTES # (AUTO) 2.1 /CMM (0.1-1.30); MONOCYTES % (AUTO) 20.6 % (2.0-12.0); NEUTROPHILS % (AUTO) 67.7 % (43.0-81.0); PLATELET COUNT (AUTO) 216 /CMM (150-450); WHITE BLOOD COUNT (AUTO) 10.3 K/uL (4.3-11.0)
--- NOTE | 2020-03-07 07:20 | NUR ---
RN OPENING NOTE: Received patient in bed. Awake, alert and oriented x4. Able to make needs known. On cont. o2 via Nc @ 2lpm being tolerated well. No SOB, no respiratory distress noted. saturation @ 97%. Iv site clean, dry, patent and intact. Pain reported on lower extremities and will be managed with available medications. Iv site clean, dry, patent and intact. Call light in reach. Bed locked, low and at semi morrow's position. Side rails up x2. Safety ensured and observed. Will continue to monitor.
[2020-03-07] MEDS: PANTOPRAZOLE 40 MG TABLET.DR PO SCH (07:43)
[2020-03-07 08:00] VITALS: BP 140/76
[2020-03-07] MEDS: MINOXIDIL (2.5MG) 2.5 MG TABLET PO SCH (08:41)
[2020-03-07] MEDS: AMLODIPINE BESYLATE 10 MG TABLET PO SCH (08:41)
[2020-03-07] MEDS: DIVALPROEX SODIUM 250 MG TABLET.DR PO SCH ×2 (08:41→17:10)
[2020-03-07] MEDS: HYDROCODONE/APAP 5/325MG TABLET PO PRN ×2 (08:41→14:15)
[2020-03-07] MEDS: QUETIAPINE FUMARATE 100 MG TABLET PO SCH ×2 (08:42→17:10)
[2020-03-07] MEDS: hydrALAZINE HCL 50 MG TABLET PO SCH ×3 (08:42→17:10)
[2020-03-07] MEDS: CARVEDILOL 12.5 MG TABLET PO SCH ×2 (08:42→17:10)
[2020-03-07] MEDS: ISOSORBIDE MONONITRATE (30MG) 30 MG TAB.SR.24H PO SCH (08:42)
[2020-03-07] MEDS: predniSONE 20 MG TABLET PO SCH (08:42)
[2020-03-07] MEDS: GABAPENTIN 300 MG CAPSULE PO SCH ×3 (08:42→17:10)
[2020-03-07] MEDS: LamoTRIgine 25 MG TABLET PO SCH ×2 (08:42→17:10)
[2020-03-07] MEDS: HEPARIN SODIUM, PORCINE 5000 UNITS/1 ML VIAL SQ SCH ×2 (08:44→22:27)
[2020-03-07] MEDS: FLUTICASONE PROPIONATE 16 GM BOTTLE NS SCH ×2 (09:18→17:11)
[2020-03-07 11:06] LABS: LYMPHOCYTES % (MANUAL) 15 % (16-48); MONOCYTES % (MANUAL) 9 % (0-11.0); NEUTROPHILS % (MANUAL) 76 (42-76)
[2020-03-07] MEDS: MORPHINE SULFATE INJ 4 MG/ML DISP.SYRIN IV PRN ×2 (11:12→16:21)
[2020-03-07] MEDS: IV NS 0.9% 1,000 ML IV PRN (13:30)
[2020-03-07 16:00] VITALS: BP 121/66
--- NOTE | 2020-03-07 18:53 | NUR ---
RN CLOSING NOTE: Patient remains in bed. Awake, alert and oriented x4. Able to make needs known. On cont. o2 via Nc @ 2lpm being tolerated well. No SOB, no respiratory distress noted. saturation @ 97%. Iv site clean, dry, patent and intact. Pain still reported on lower extremities and was managed with current pain medications, relief was also noted on shift but starts back up again in a couple of hours per patient. Iv site clean, dry, patent and intact. NS @ 100mls/hr infusing and being tolerated well. Will inform oncoming nurse to let assigned provider know tomorrow to clarify patient acuity as admission noted stated patient in Med Surg but admission ordered was put in as Telemetry. Call light in reach. Bed locked, low and at semi morrow's position. Side rails up x2. Safety ensured and observed. Will endorse to oncoming shift for LAURO.
[2020-03-07 20:00] VITALS: BP 124/72
--- NOTE | 2020-03-07 20:00 | NUR ---
MS/TELE/RN ASSUMED CARE FOR CONTINUITY OF CARE. PATIENT WAS IN BED AWAKE, ALERT, ORIENTED, WATCHING TV, NO C/O PAIN, NO DISTRESS NOTED, CALL LIGHT IN REACH. WILL MONITOR.
[2020-03-07] MEDS: TRAZODONE 50 MG TABLET PO SCH (22:24)
[2020-03-07] MEDS: DOXAZOSIN MESYLATE (1 MG) 1 MG TABLET PO SCH (22:24)
[2020-03-08] VITALS: BP 117/38
[2020-03-08] MEDS: IV NS 0.9% 1,000 ML IV PRN ×3 (01:32→19:44)
--- NOTE | 2020-03-08 01:50 | NUR ---
MS/TELE/RN PATIENT IS SLEEPING AT THIS TIME, APPEAR COMFORTABLE, NO DISTRESS NOTED, CALL LIGHT IN REACH. WILL CONTINUE TO MONITOR.
[2020-03-08 04:00] VITALS: BP 146/66
--- NOTE | 2020-03-08 06:00 | NUR ---
MS/TELE/RN PATIENT IS STILL SLEEPING AT THIS TIME, APPEAR COMFORTABLE, NO SIGNS OF DISTRESS NOTED, CALL LIGHT IN REACH. ALL NEEDS ATTENDED AT THIS TIME, WILL CONTINUE TO MONITOR.
[2020-03-08 07:06] LABS: BASOPHILS % (AUTO) 0.1 % (0.0-2.0); EOSINOPHILS % (AUTO) 0.5 % (0.0-6.0); HEMATOCRIT 36 % (39-51); HEMOGLOBIN 11.4 g/dL (13.5-17.5); LYMPHOCYTES # (AUTO) 1.1 /CMM (0.8-4.8); MEAN CORPUSCULAR HGB CONC 32 g/dl (31.0-36.0); MEAN CORPUSCULAR VOLUME 104 fL (80-96); MONOCYTES # (AUTO) 2.1 /CMM (0.1-1.30); MONOCYTES % (AUTO) 21.3 % (2.0-12.0); NEUTROPHILS # (AUTO) 6.6 /CMM (1.8-8.9); NEUTROPHILS % (AUTO) 67.1 % (43.0-81.0); PLATELET COUNT (AUTO) 201 /CMM (150-450); RED BLOOD CELL COUNT(AUTO) 3.47 MIL/uL (4.5-6.0); WHITE BLOOD COUNT (AUTO) 9.8 K/uL (4.3-11.0)
[2020-03-08 07:24] LABS: CALCIUM, SERUM 8.1 mg/dL (8.5-10.1); CARBON DIOXIDE 19 mmol/L (21-32); CHLORIDE 107 mmol/L (98-107); CREATININE 2.7 mg/dL (0.6-1.3); GLUCOSE 88 mg/dL (74-106); MAGNESIUM 2.8 mg/dL (1.8-2.4); PHOSPHORUS 4.9 mg/dL (2.5-4.9); POTASSIUM 4.1 mmol/L (3.5-5.1); SODIUM SERUM 139 mmol/L (136-145)
--- NOTE | 2020-03-08 07:28 | NUR ---
CATTLE INSPECTOR NOTES PATIENT RECEIVED IN BED, ALERT AND ORIENTED X 3. ON NASAL CANNULA, 2 LITERS WITH NO SIGNS OF RESPIRATORY DISTRESS, WITH EVEN NON-LABORED BREATHING, AND NO SIGNS OF SOB NOTED AT THIS TIME. ON ROLL OVER PRESS OPERATOR, SINUS RHYTHM 86. PATIENT HAS NO IV ACCESS ENDORSED BY NIGHTSHIFT RN PATIENT PULLED OUT, WILL RE-INSERT IV. PATIENT PRESENTING WITH GENERALIZED PAIN, CRAMPING, REQUESTING PAIN MEDICATION. SAFETY PRECAUTIONS IMPLEMENTED WITH BED LOCKED, BED IN THE LOWEST POSITION, BILATERAL SIDE RAILS UP, BED ALARM ON, AND CALL LIGHT WITHIN EASY REACH OF PATIENT. WILL CONTINUE TO MONITOR PATIENT.
[2020-03-08 07:34] LABS: UREA NITROGEN, BLOOD 86 mg/dL (7-18)
[2020-03-08] MEDS: HYDROCODONE/APAP 5/325MG TABLET PO PRN (07:49)
[2020-03-08] MEDS: PANTOPRAZOLE 40 MG TABLET.DR PO SCH (07:49)
[2020-03-08 08:00] VITALS: BP 136/83
[2020-03-08] MEDS: FLUTICASONE PROPIONATE 16 GM BOTTLE NS SCH ×2 (08:54→16:43)
[2020-03-08] MEDS: GABAPENTIN 300 MG CAPSULE PO SCH ×3 (08:55→16:44)
[2020-03-08] MEDS: MINOXIDIL (2.5MG) 2.5 MG TABLET PO SCH (08:56)
[2020-03-08] MEDS: QUETIAPINE FUMARATE 100 MG TABLET PO SCH ×2 (08:56→16:48)
[2020-03-08] MEDS: CARVEDILOL 12.5 MG TABLET PO SCH ×2 (08:56→16:44)
[2020-03-08] MEDS: predniSONE 20 MG TABLET PO SCH (08:57)
[2020-03-08] MEDS: ISOSORBIDE MONONITRATE (30MG) 30 MG TAB.SR.24H PO SCH (08:57)
[2020-03-08] MEDS: AMLODIPINE BESYLATE 10 MG TABLET PO SCH (08:57)
[2020-03-08] MEDS: DIVALPROEX SODIUM 250 MG TABLET.DR PO SCH ×2 (08:57→16:43)
[2020-03-08] MEDS: LamoTRIgine 25 MG TABLET PO SCH ×2 (08:57→16:43)
[2020-03-08] MEDS: HEPARIN SODIUM, PORCINE 5000 UNITS/1 ML VIAL SQ SCH ×2 (08:59→21:16)
[2020-03-08 09:44] LABS: LYMPHOCYTES % (MANUAL) 17 % (16-48); MONOCYTES % (MANUAL) 19 % (0-11.0); NEUTROPHILS % (MANUAL) 64 (42-76)
[2020-03-08] MEDS: hydrALAZINE HCL 50 MG TABLET PO SCH ×3 (09:50→16:44)
[2020-03-08 12:00] VITALS: BP 134/63
[2020-03-08] MEDS: MORPHINE SULFATE INJ 4 MG/ML DISP.SYRIN IV PRN (14:40)
[2020-03-08 16:00] VITALS: BP 121/82
--- NOTE | 2020-03-08 16:53 | NUR ---
DRAFTING INSTRUCTOR NOTES REMOVED SEROQUEL FROM PYXIS WENT TO PATIENT ROOM AND OPENED MEDICATION ORDERED AND SCHEDULED, MEDICATION FELL ON THE GROUND, PULLED ANOTHER OUT FROM THE PYXIS, AND INFORMED PHARMACIST OSWALDO MORE.
--- NOTE | 2020-03-08 18:26 | NUR ---
RECENTERER NOTES PATIENT IN BED SLEEPING EASILY AWAKEN, ALERT AND ORIENTED X 3, ON NASAL CANNULA 2 LITERS, WITH NO SIGNS OF RESPIRATORY DISTRESS WITH EVEN NON-LABORED BREATHING, AND NO SOB NOTED. ON RE DYE HAND SINUS RHYTHM 70'S. PATIENT IV ACCESS INTACT AND PATENT, CURRENTLY INFUSING IV NORMAL SALINE AT 150ml/hr. PATIENT SKIN KEPT CLEAN. WARM AND DRY TO TOUCH. PATIENT PRESENTS WITH NO PAIN OR DISCOMFORT AT THIS TIME, MET ALL OF PATIENT'S NEEDS. SAFETY PRECAUTIONS IMPLEMENTED WITH BED LOCKED, BED IN THE LOWEST POSITION, BILATERAL SIDE RAILS UP, BED ALARM ON, AND CALL LIGHT WITHIN EASY REACH OF PATIENT. WILL ENDORSE PLAN OF CARE TO UPCOMING RN.
--- NOTE | 2020-03-08 19:20 | NUR ---
fur dry cleaner opening notes Received Pt from morning nurse. Pt is alert and orientedX3. Pt is resting in bed comfortably. Respiration is normal in 2 L NC. No SOB. No S/S of distress noted. Tele monitor showed Sr hr at 87 bpm. IV sites at R upperarm # 24 is clean, intact and infusing well NS@ 150 ml/hr. Safety precautions is maintained. Bed at low positon, brakes locked, side rails upX3, HOB elevated and call light is within reach. Will continue to monitor.
[2020-03-08 20:00] VITALS: BP 132/62
[2020-03-08] MEDS: TRAZODONE 50 MG TABLET PO SCH (21:13)
[2020-03-08] MEDS: DOXAZOSIN MESYLATE (1 MG) 1 MG TABLET PO SCH (21:14)
[2020-03-09] VITALS: BP 151/84
[2020-03-09] MEDS: MORPHINE SULFATE INJ 4 MG/ML DISP.SYRIN IV PRN ×3 (00:24→11:41)
--- NOTE | 2020-03-09 00:27 | NUR ---
human resource consultant notes Pt's complaining pain 10/10 on R and L legs and requesting pain meds. Administered morphine 4 mg/IV push/prn as ordered for pain. Safety precautions is maintained. Will continue to monitor.
[2020-03-09 04:00] VITALS: BP 141/72
--- NOTE | 2020-03-09 06:40 | NUR ---
valving machine operator closing notes Pt is resting in bed comfortably. Pt is alert and oriented X3. Respiration is normal in 2 L NC. No SOB. No S/S of distress noted. Tele monitor showed SR with BBB hr at 87 bpm. VS is stable. Afebrile. Routine meds were given as ordered. IV sites at R upperarm # 24 is clean, intact and infusing well NS@ 150 ml/hr. Kept Pt clean, dry and comfortable. All needs met and attended. Safety precautions is maintained. Bed at low position, brakes locked, side rails upX3, HOB elevated and call light is within reach. Will endorse to morning nurse for LAURO.
[2020-03-09] MEDS: IV NS 0.9% 1,000 ML IV PRN (06:58)
--- NOTE | 2020-03-09 07:32 | NUR ---
QUARRY SUPERVISOR OPEN PIT NOTES PATIENT RECEIVED IN BED SLEEPING EASILY AWAKEN, ALERT AND ORIENTED X 3. ON NASAL CANNULA, 2 LITERS WITH NO SIGNS OF RESPIRATORY DISTRESS, WITH EVEN NON-LABORED BREATHING, AND NO SIGNS OF SOB NOTED AT THIS TIME. ON TWX OPERATOR, SINUS RHYTHM 87. IV ACCESS INTACT AND PATENT, WITH IV FLUIDS INFUSING AT 150ml/hr. PATIENT PRESENTING WITH NO SIGNS OF PAIN OR DISCOMFORT AT THIS TIME. SAFETY PRECAUTIONS IMPLEMENTED WITH BED LOCKED, BED IN THE LOWEST POSITION, BILATERAL SIDE RAILS UP, BED ALARM ON, AND CALL LIGHT WITHIN EASY REACH OF PATIENT. WILL CONTINUE TO MONITOR PATIENT.
[2020-03-09 07:53] LABS: CALCIUM, SERUM 8.3 mg/dL (8.5-10.1); CARBON DIOXIDE 19 mmol/L (21-32); CHLORIDE 110 mmol/L (98-107); CREATININE 2.3 mg/dL (0.6-1.3); GLUCOSE 101 mg/dL (74-106); POTASSIUM 4.6 mmol/L (3.5-5.1); SODIUM SERUM 140 mmol/L (136-145)
[2020-03-09 07:58] LABS: UREA NITROGEN, BLOOD 86 mg/dL (7-18)
[2020-03-09 08:00] VITALS: BP 140/74
[2020-03-09] MEDS: HEPARIN SODIUM, PORCINE 5000 UNITS/1 ML VIAL SQ SCH (08:57)
[2020-03-09] MEDS: GABAPENTIN 300 MG CAPSULE PO SCH ×3 (08:58→16:50)
[2020-03-09] MEDS: LamoTRIgine 25 MG TABLET PO SCH ×2 (08:58→16:50)
[2020-03-09] MEDS: predniSONE 20 MG TABLET PO SCH (08:59)
[2020-03-09] MEDS: MINOXIDIL (2.5MG) 2.5 MG TABLET PO SCH (08:59)
[2020-03-09] MEDS: QUETIAPINE FUMARATE 100 MG TABLET PO SCH ×2 (08:59→16:50)
[2020-03-09] MEDS: DIVALPROEX SODIUM 250 MG TABLET.DR PO SCH ×2 (08:59→16:50)
[2020-03-09] MEDS: AMLODIPINE BESYLATE 10 MG TABLET PO SCH (08:59)
[2020-03-09] MEDS: FLUTICASONE PROPIONATE 16 GM BOTTLE NS SCH ×2 (09:00→16:57)
[2020-03-09] MEDS: ISOSORBIDE MONONITRATE (30MG) 30 MG TAB.SR.24H PO SCH (09:00)
[2020-03-09] MEDS: CARVEDILOL 12.5 MG TABLET PO SCH ×2 (09:00→16:51)
[2020-03-09] MEDS: hydrALAZINE HCL 50 MG TABLET PO SCH ×3 (09:00→16:51)
[2020-03-09 11:41] VITALS: BP 116/57
[2020-03-09 16:00] VITALS: BP 118/71
[2020-03-09] MEDS: ALBUTEROL SULFATE INH 18 GM HFA.AER.AD IH PRN (16:01)
[2020-03-09] MEDS ORDERED: INFLUENZA VACCINE 2020-21 0.5 ML DISP.SYRIN IM ONE (16:30)
[2020-03-09 16:51] VITALS: BP 149/83
--- NOTE | 2020-03-09 18:10 | NUR ---
MANAGER PROGRESSIVE CARE NOTES PATIENT ALERT AND ORIENTED X3, ON NASAL CANNULA 2 LITERS, WITH NO SIGNS OF RESPIRATORY DISTRESS, NO SIGNS OF SOB WITH EVEN NON-LABORED BREATHING. IV ACCESS REMOVED AND CATHETER TIP INTACT AND APPLIED PRESSURE TO SITE. REMOVED ID BAND. VITAL SIGNS WNL. MET ALL OF PATIENT'S NEEDS, EXIT CARE PROVIDED TO PATIENT. PATIENT ACCOUNTED FOR ALL BELONGINGS. PATIENT LEFT UNIT VIA GUNNERY WITH 2 EMT'S
[2020-03-10] MEDS ORDERED: PANTOPRAZOLE 40 MG TABLET.DR PO SCH (07:30)
== END 2020-03-09 18:10 | DRG 683 ==
LOC: ER 13:11 → TELE2 17:17 → MED 03-05 17:02 → TELE 03-07 21:38
PROVIDERS: ADMIT Legal Medicine; ATTEND Legal Medicine
DX: N17.0 Acute kidney failure with tubular necrosis (principal); J44.1 Chronic obstructive pulmonary disease with (acute) exacerbation; I12.9 Hypertensive chronic kidney disease with stage 1 through stage 4 chronic kidney disease, or unspecified chronic kidney disease; N18.30 Chronic kidney disease, stage 3 unspecified; I48.91 Unspecified atrial fibrillation; N40.0 Benign prostatic hyperplasia without lower urinary tract symptoms; I73.9 Peripheral vascular disease, unspecified; E78.00 Pure hypercholesterolemia, unspecified; Z98.890 Other specified postprocedural states; Z88.6 Allergy status to analgesic agent; Z91.013 Allergy to seafood; Z88.8 Allergy status to other drugs, medicaments and biological substances; Z91.018 Allergy to other foods; Z79.899 Other long term (current) drug therapy; G89.29 Other chronic pain; F31.9 Bipolar disorder, unspecified
CPT/HCPCS: 36415; 71045-TC; 76770-TC; 80048-TC; 80053-TC; 80076-TC; 80164-TC; 81001; 82550-TC; 82570-TC; 82962-TC; 83735-TC; 83970; 84100-TC; 84155; 84155-TC; 84165; 84300-TC; 84484-TC; 84550-TC; 85025-TC; 87081-TC; 87086-TC; 93307-TC; 97112-TC; 97530-TC; G0378; J1644; J1815; J1940; J2270; J2405; J7030; J7040; Q2036; U0003